=== PATIENT | female | born 1965 | race Caucasian/White ===

== ENCOUNTER 2016-06-26 08:13 | Emergency (ER) | payer OTHER ==
[~2016-06-26 08:13] MED LIST: ALBU17IN2 INH; ALBU83IN INH; ARNU1INH3 IN; DIPH12.527 PO; FENO160T10 PO; FLUT11IN INH; NITR0.4S; OMEP40CA2 PO; PRED20TA PO; PRIL20CA; PRIL40CA; XANA0.5T; ZOLO100T PO; [UNRECOGNIZED DRUG - REMARK]
--- NOTE | 2016-06-26 09:17 | REP ---
LEFT ELBOW SERIES, 06/26/2016: INDICATION: Trauma. COMPARISON: None. FINDINGS: There is mild soft tissue prominence overlying the medial distal humeral epicondyle. There is no acute fracture or dislocation. There is no suprapatellar effusion. IMPRESSION: Mild soft tissue prominence overlying the medial distal humeral epicondyle. No fracture or joint effusion. MTDD
--- NOTE | 2016-06-26 09:23 | EDDOCDS ---
Nurse's Notes [facility] Name: Claudia Holcomb Age: 50 yrs Sex: Female : 1965 Arrival Date: 06/26/2016 Time: 08:13 Bed I2 / M2 Private MD: Carson Lawler Diagnosis: Contusion of left elbow Presentation: 06/26 08:23 Presenting complaint: Patient states: Fell on Friday injuring left elbow. Adult Sepsis mlb1 Screening: The patient does not have new or worsening altered mentation. Patient's respiratory rate is less than 22. Systolic blood pressure is greater than 100. Patient has a qSOFA score of 0- Negative Sepsis Screen. Suicide/Homicide risk assessment- the patient denies having any suicidal and/or homicidal ideations and does not present with any other emotional, behavioral or mental health complaints. Status: Patient is not a dispatcher service or dependent. Transition of care: patient was not received from another setting of care. 08:23 Acuity: ALON Level 4 mlb1 08:23 Method Of Arrival: Walkin/Carried/Asstd mlb1 Triage Assessment: 08:25 General: Appears in no apparent distress, Behavior is appropriate for age, cooperative. mlb1 Pain: Location: left elbow Pain currently is 8.5 out of 10 on a pain scale. HIV screening NA for this visit Offered previously. Injury Description: Bruise sustained to left elbow is green. 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 omeprazole 40 mg Oral cpDR 1 cap once daily - PMHx: Anxiety; Degenerative disc disease; GERD; High Cholesterol; Mood Disorder; - PSHx: ; Exploratory lap; reverse tubal; - Social history: Smoking status: Patient uses tobacco products, light tobacco smoker. No barriers to communication noted, The patient speaks fluent Guamanian, Speaks appropriately for age. - Family history: Not pertinent. - : The pt / caregiver states he / she is not on anticoagulants. Home medication list is obtained from the patient. - Exposure Risk Screening:: None identified. Screenin:40 Screening information is obtained from the patient. Fall risk: No risks identified. jmk Assistance ADL's: requires no assistance with activities of daily living. Abuse/DV Screen: The patient / caregiver reports he/she is: not in a situation that causes fear, pain or injury. Nutritional screening: No deficits noted. Advance Directives: Currently, there is no health care proxy. There is no active DNR order. There is no living will. There is no Power of Curing Press Maintainer. Advance directive information has not previously been placed in an [facility] medical record. home support is adequate. Assessment: 08:37 General: Appears in no apparent distress, casually sitting on stretcher. Indicates jmk discomfort to left elbow. Pulse is intact. ROM adequate but painful with extension. faint ecchymosis noted to posterior elbow over 2" area. skin integrity intact.. Musculoskeletal: Circulation, motion, and sensation intact Capillary refill < 3 seconds. Vital Signs: 08:25 BP 139 / 85; Pulse 72; Resp 16; Temp 97.6(TE); Pulse Ox 96% on R/A; Weight 86.64 kg mlb1 (R); Height 5 ft. 6 in. (167.64 cm) (R); Pain 8/10; 08:25 Body Mass Index 30.83 (86.64 kg, 167.64 cm) ml Vitals: 08:25 Log In Time: June 26, 2016 at 08:09. mlb1 ED Course: 08:14 Patient visited by Samuel Ambriz. mm15 08:14 Patient moved to Waiting mm15 08:15 Carson Lawler is Private Physician. mm15 08:23 Patient visited by Vance Valdez, BRITTANY. mlb1 08:24 Triage Initiated mlb1 08:26 Patient visited by Vance Valdez, BRITTANY. mlb1 08:26 Patient moved to / mlb1 08:40 The patient / caregiver is instructed regarding the plan of care and ED course. jmk 08:41 Patient visited by Jd Chavira RN. jmk 08:42 Sammy Ashton [facility]-C [facility] cc10 08:42 Navi Moore MD is Attending Physician. cc10 08:48 Patient visited by Sammy Ashton PA-C. cc10 08:48 Patient visited by Sammy Ashton PA-C. cc10 09:14 Carson Lawler is Referral Physician. cc10 09:22 No IV's were initiated during this patient's visit. No procedures done that require jmk assistance. Order Results: There are currently no results for this order. Outcome: 09:15 Discharge ordered by Provider. cc10 09:21 Discharge Assessment: Patient awake, alert and oriented x 3. No cognitive and/or jmk functional deficits noted. Patient verbalized understanding of disposition instructions. patient administered narcotics - no. The following High Risk Discharge criteria are identified: None. Discharged to home ambulatory. Condition: good. Discharge instructions given to patient, Instructed on discharge instructions, follow up and referral plans. medication usage, Demonstrated understanding of instructions, medications, Pt was receptive of discharge instructions/ teaching. No special radiology studies were completed. Property :Personal belongings accompany Pt. 09:22 Patient left the ED. jmk Signatures: Jd ChaviraRN Vance Guerrero RN RN mlSamuel Braxton mm15 Sammy Ashton, PA-C PA-C cc10 URVASHI
--- NOTE | 2016-06-26 09:23 | EDDOCDS ---
Physician Documentation [facility] Name: Claudia Holcomb Age: 50 yrs Sex: Female : 1965 Arrival Date: 06/26/2016 Time: 08:13 Bed I2 / M2 Private MD: Carson Lawler Disposition: 06/26/16 09:15 Discharged to Home/Self Care. Impression: Contusion of left elbow. - Condition is Stable. - Discharge Instructions: Elbow Contusion. - Prescriptions for Naprosyn 500 mg Oral Tablet - take 1 tablet by ORAL route 2 times per day take with food; 30 tablet. - Medication Reconciliation, Work Release Form - 2 day form. - Follow up: Emergency Department; When: As needed. Follow up: Carson Lawler; When: Call to arrange an appointment; Reason: Wound/Symptom Recheck, Recheck today's complaints, Worsening of conditions, Continuance of care. - Problem is an ongoing problem. - Symptoms are unchanged. Historical: - Allergies: Latex (Rash, Wheezing); - Home Meds: 1. omeprazole 40 mg Oral cpDR 1 cap once daily - PMHx: Anxiety; Degenerative disc disease; GERD; High Cholesterol; Mood Disorder; - PSHx: ; Exploratory lap; reverse tubal; - Social history: Smoking status: Patient uses tobacco products, light tobacco smoker. No barriers to communication noted, The patient speaks fluent Panamanian, Speaks appropriately for age. - Family history: Not pertinent. - : The pt / caregiver states he / she is not on anticoagulants. Home medication list is obtained from the patient. - Exposure Risk Screening:: None identified. 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 6 in. (167.64 cm) (R); Pain 8/10; 08:25 Body Mass Index 30.83 (86.64 kg, 167.64 cm) mlb1 MDM: 08:41 Elbow, Complete Ordered. EDMS Signatures: Dispatcher [employer] EDMS Jd Chavira RN RN jmk Barney, Michael B, RN RN mlb1 Daisha, Sammy, PA-C PA-C cc10 MTDD
--- NOTE | 2016-06-28 10:23 | EDDOCDS ---
Physician Documentation [facility] Name: Claudia Holcomb Age: 50 yrs Sex: Female : 1965 Arrival Date: 06/26/2016 Time: 08:13 Bed I2 / M2 Private MD: Carson Lawler Disposition: 06/26/16 09:15 Discharged to Home/Self Care. Impression: Contusion of left elbow. - Condition is Stable. - Discharge Instructions: Elbow Contusion. - Prescriptions for Naprosyn 500 mg Oral Tablet - take 1 tablet by ORAL route 2 times per day take with food; 30 tablet. - Medication Reconciliation, Work Release Form - 2 day form. - Follow up: Emergency Department; When: As needed. Follow up: Carson Lawler; When: Call to arrange an appointment; Reason: Wound/Symptom Recheck, Recheck today's complaints, Worsening of conditions, Continuance of care. - Problem is an ongoing problem. - Symptoms are unchanged. Historical: - Allergies: Latex (Rash, Wheezing); - Home Meds: 1. omeprazole 40 mg Oral cpDR 1 cap once daily - PMHx: Anxiety; Degenerative disc disease; GERD; High Cholesterol; Mood Disorder; - PSHx: ; Exploratory lap; reverse tubal; - Social history: Smoking status: Patient uses tobacco products, light tobacco smoker. No barriers to communication noted, The patient speaks fluent Brazilian, Speaks appropriately for age. - Family history: Not pertinent. - : The pt / caregiver states he / she is not on anticoagulants. Home medication list is obtained from the patient. - Exposure Risk Screening:: None identified. 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 6 in. (167.64 cm) (R); Pain 8/10; 08:25 Body Mass Index 30.83 (86.64 kg, 167.64 cm) mlb1 MDM: 08:41 Elbow, Complete Ordered. EDMS 09:27 [facility] Agreement was scanned into [employer] and attached to record. jls1 14:04 T-Sheet-- Draft Copy was scanned into [employer] and attached to record. gb Signatures: Dispatcher [employer] EDMS Jd Chavira,RN RN Jessica Moralez, Abdi Reg Vance Zimmerman, RN RN mlb1 Sammy Ashton, PALeanderC PALeanderC cc10 Hilda Cruz jls1 The chart was reviewed and I authenticate all verbal orders and agree with the evaluation and treatment provided.Attachments: : [facility] Payment Agreement jls1 14:04 T-Sheet-- Draft Copy gb Chart Complete MTDD
--- NOTE | 2016-06-28 10:23 | EDDOCDS ---
Physician Documentation [facility] Name: Claudia Holcomb Age: 50 yrs Sex: Female : 1965 Arrival Date: 06/26/2016 Time: 08:13 Bed I2 / M2 Private MD: Carson Lawler Disposition: 06/26/16 09:15 Discharged to Home/Self Care. Impression: Contusion of left elbow. - Condition is Stable. - Discharge Instructions: Elbow Contusion. - Prescriptions for Naprosyn 500 mg Oral Tablet - take 1 tablet by ORAL route 2 times per day take with food; 30 tablet. - Medication Reconciliation, Work Release Form - 2 day form. - Follow up: Emergency Department; When: As needed. Follow up: Carson Lawler; When: Call to arrange an appointment; Reason: Wound/Symptom Recheck, Recheck today's complaints, Worsening of conditions, Continuance of care. - Problem is an ongoing problem. - Symptoms are unchanged. Historical: - Allergies: Latex (Rash, Wheezing); - Home Meds: 1. omeprazole 40 mg Oral cpDR 1 cap once daily - PMHx: Anxiety; Degenerative disc disease; GERD; High Cholesterol; Mood Disorder; - PSHx: ; Exploratory lap; reverse tubal; - Social history: Smoking status: Patient uses tobacco products, light tobacco smoker. No barriers to communication noted, The patient speaks fluent Cymro, Speaks appropriately for age. - Family history: Not pertinent. - : The pt / caregiver states he / she is not on anticoagulants. Home medication list is obtained from the patient. - Exposure Risk Screening:: None identified. 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 6 in. (167.64 cm) (R); Pain 8/10; 08:25 Body Mass Index 30.83 (86.64 kg, 167.64 cm) mlb1 MDM: 08:41 Elbow, Complete Ordered. EDMS 09:27 [facility] [place] was scanned into [employer] and attached to record. jls1 14:04 T-Sheet-- Draft Copy was scanned into [employer] and attached to record. gb Signatures: Dispatcher [employer] EDMS Jd Chavira,RN RN Jessica Moralez, Abdi Reg Vance Zimmerman, RN RN mlb1 Sammy Ashton, PALeanderC PALeanderC cc10 Hilda Cruz jls1 The chart was reviewed and I authenticate all verbal orders and agree with the evaluation and treatment provided.Attachments: : [facility] Payment Agreement [email or web address] 14:04 T-Sheet-- Draft Copy gb Chart Complete MTDD
--- NOTE | 2016-06-28 10:23 | EDDOCDS ---
Nurse's Notes [facility] Name: Claudia Holcomb Age: 50 yrs Sex: Female : 1965 Arrival Date: 06/26/2016 Time: 08:13 Bed I2 / M2 Private MD: Carson Lawler Diagnosis: Contusion of left elbow Presentation: 06/26 08:23 Presenting complaint: Patient states: Fell on Friday injuring left elbow. Adult Sepsis mlb1 Screening: The patient does not have new or worsening altered mentation. Patient's respiratory rate is less than 22. Systolic blood pressure is greater than 100. Patient has a qSOFA score of 0- Negative Sepsis Screen. Suicide/Homicide risk assessment- the patient denies having any suicidal and/or homicidal ideations and does not present with any other emotional, behavioral or mental health complaints. Status: Patient is not a digital service engineer or dependent. Transition of care: patient was not received from another setting of care. 08:23 Acuity: ALON Level 4 mlb1 08:23 Method Of Arrival: Walkin/Carried/Asstd mlb1 Triage Assessment: 08:25 General: Appears in no apparent distress, Behavior is appropriate for age, cooperative. mlb1 Pain: Location: left elbow Pain currently is 8.5 out of 10 on a pain scale. HIV screening NA for this visit Offered previously. Injury Description: Bruise sustained to left elbow is green. 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 omeprazole 40 mg Oral cpDR 1 cap once daily - PMHx: Anxiety; Degenerative disc disease; GERD; High Cholesterol; Mood Disorder; - PSHx: ; Exploratory lap; reverse tubal; - Social history: Smoking status: Patient uses tobacco products, light tobacco smoker. No barriers to communication noted, The patient speaks fluent Lao, Speaks appropriately for age. - Family history: Not pertinent. - : The pt / caregiver states he / she is not on anticoagulants. Home medication list is obtained from the patient. - Exposure Risk Screening:: None identified. Screenin:40 Screening information is obtained from the patient. Fall risk: No risks identified. jmk Assistance ADL's: requires no assistance with activities of daily living. Abuse/DV Screen: The patient / caregiver reports he/she is: not in a situation that causes fear, pain or injury. Nutritional screening: No deficits noted. Advance Directives: Currently, there is no health care proxy. There is no active DNR order. There is no living will. There is no Power of Inspecting Engineer. Advance directive information has not previously been placed in an [facility] medical record. home support is adequate. Assessment: 08:37 General: Appears in no apparent distress, casually sitting on stretcher. Indicates jmk discomfort to left elbow. Pulse is intact. ROM adequate but painful with extension. faint ecchymosis noted to posterior elbow over 2" area. skin integrity intact.. Musculoskeletal: Circulation, motion, and sensation intact Capillary refill < 3 seconds. Vital Signs: 08:25 BP 139 / 85; Pulse 72; Resp 16; Temp 97.6(TE); Pulse Ox 96% on R/A; Weight 86.64 kg mlb1 (R); Height 5 ft. 6 in. (167.64 cm) (R); Pain 8/10; 08:25 Body Mass Index 30.83 (86.64 kg, 167.64 cm) ml Vitals: 08:25 Log In Time: June 26, 2016 at 08:09. mlb1 ED Course: 08:14 Patient visited by Samuel Ambriz. mm15 08:14 Patient moved to Waiting mm15 08:15 Carson Lawler is Private Physician. mm15 08:23 Patient visited by Vance Valdez, BRITTANY. mlb1 08:24 Triage Initiated mlb1 08:26 Patient visited by Vance Valdez, BRITTANY. mlb1 08:26 Patient moved to / mlb1 08:40 The patient / caregiver is instructed regarding the plan of care and ED course. jmk 08:41 Patient visited by Jd Chavira RN. jmk 08:42 Sammy Ashton PA-C [facility] cc10 08:42 Navi Moore MD is Attending Physician. cc10 08:48 Patient visited by Sammy Ashton PA-C. cc10 08:48 Patient visited by Sammy Ashton PA-C. cc10 09:14 Carson Lawler is Referral Physician. cc10 09:22 No IV's were initiated during this patient's visit. No procedures done that require jmk assistance. 09:27 [facility] Payment Agreement was scanned into [employer] and attached to record. jl 09:56 Elbow, Complete Returned. EDMS 14:04 T-Sheet-- Draft Copy was scanned into [employer] and attached to record. Order Results: Radiology Order: Elbow, Complete Test: Elbow, Complete REASON FOR EXAMINATION: Trauma; LEFT ELBOW SERIES, 06/26/2016:; ; INDICATION: Trauma.; ; COMPARISON: None.; ; FINDINGS: There is mild soft tissue prominence overlying the medial distal; humeral epicondyle. There is no acute fracture or dislocation. There is no; suprapatellar effusion.; ; IMPRESSION:; Mild soft tissue prominence overlying the medial distal humeral epicondyle. No; fracture or joint effusion.; ; ; MTDD Outcome: 09:15 Discharge ordered by Provider. cc10 09:21 Discharge Assessment: Patient awake, alert and oriented x 3. No cognitive and/or k functional deficits noted. Patient verbalized understanding of disposition instructions. patient administered narcotics - no. The following High Risk Discharge criteria are identified: None. Discharged to home ambulatory. Condition: good. Discharge instructions given to patient, Instructed on discharge instructions, follow up and referral plans. medication usage, Demonstrated understanding of instructions, medications, Pt was receptive of discharge instructions/ teaching. No special radiology studies were completed. Property :Personal belongings accompany Pt. 09:22 Patient left the ED. chencho Signatures: Dispatcher [employer] EDMS Jd Chavira,RN RN Jessica Moralez, Abdi Reg Vance Zimmerman RN RN mlb1 Samuel Ambriz mm15 Sammy Ashton, PA-C PA-C cc10 Hilda Cruz jls1 Chart Complete MTDD
== END 2016-06-26 09:22 | disposition home or self-care (01) ==
LOC: M ED 08:13
DX: S50.02XA Contusion of left elbow, initial encounter (principal); W19.XXXA Unspecified fall, initial encounter; Y92.410 Unspecified street and highway as the place of occurrence of the external cause; Y93.89 Activity, other specified; Y99.8 Other external cause status; K21.9 Gastro-esophageal reflux disease without esophagitis; Z79.899 Other long term (current) drug therapy; F17.210 Nicotine dependence, cigarettes, uncomplicated; Z91.040 Latex allergy status

== ENCOUNTER → 2016-08-22 | Outpatient (CLI) | payer OTHER ==
[~2016-08-22] MED LIST changes: +HYDR-4274 PO; +TRAZ10TA PO
--- NOTE | 2016-08-23 03:38 | REP ---
Clinical: Wheezing. Findings: Bilateral lung butts are well-aerated, symmetric, and clear. No consolidation, nodule or mass lesion. No pleural effusion/reaction or pneumothorax. Mediastinum including heart/pericardium and thoracic aorta are relatively normal. Mild atherosclerotic changes noted. No pericardial effusion. No obvious axillary, hilar, or mediastinal adenopathy. The tracheobronchial tree is patent and normal in appearance. The surrounding musculoskeletal structures are unremarkable. Impression: Normal chest CT. Signed by Cm Negrete MD 08/23/2016 03:30 A
== END ==
LOC: M RAD 08:51
PROVIDERS: ATTEND Internal Medicine Pulmonary Disease
DX: R06.2 Wheezing (principal)

== ENCOUNTER 2016-12-21 20:57 | Emergency (ER) | payer OTHER, SELFPAY ==
[~2016-12-21] VITALS: Ht 167.6 cm; Wt 92.2 kg
[~2016-12-21 20:57] MED LIST changes: -HYDR-4274 PO; +HYDR50TA70 PO
[2016-12-21] MEDS ORDERED: MULT1TAB10 PO (21:12)
[2016-12-21] MEDS ORDERED: NAPROXEN 250 MG TAB PO ONE (23:15)
[2016-12-21 23:24] VITALS: BP 132/68
--- NOTE | 2016-12-22 07:34 | REP ---
Right ankle four views : There is no fracture or dislocation. There is soft tissue edema laterally. The mortise is symmetric. There are no calcifications or foreign bodies. There is a tiny calcaneal Achilles spur. Impression: Soft tissue edema laterally. No fracture. Signed by Shawn Santana MD 12/22/2016 07:25 A
[2017-03-14] MEDS ORDERED: FISH1000 PO (16:21)
[2017-04-13] MEDS ORDERED: PROAAER10 INH (11:42)
[2017-04-13] MEDS ORDERED: MELO15TA4 PO (11:42)
[2017-04-13] MEDS ORDERED: ALBU83IN INH (11:42)
[2017-04-13] MEDS ORDERED: OMEP40CA2 PO (11:42)
[2017-04-13] MEDS ORDERED: BREO1INH3 INH (11:42)
[2017-04-16] MEDS ORDERED: SUCR1TA PO (10:37)
[2017-04-16] MEDS ORDERED: CETI10TA PO (10:37)
[2017-04-16] MEDS ORDERED: PRED10TA2 PO (10:37)
== END 2016-12-21 23:24 | disposition home or self-care (01) ==
LOC: M ED 20:57
DX: S93.401A Sprain of unspecified ligament of right ankle, initial encounter (principal); X58.XXXA Exposure to other specified factors, initial encounter; Y92.9 Unspecified place or not applicable; Y93.01 Activity, walking, marching and hiking; Y99.9 Unspecified external cause status; F41.9 Anxiety disorder, unspecified; G43.909 Migraine, unspecified, not intractable, without status migrainosus; K57.30 Diverticulosis of large intestine without perforation or abscess without bleeding; F17.200 Nicotine dependence, unspecified, uncomplicated; Z79.899 Other long term (current) drug therapy; Z91.040 Latex allergy status

== ENCOUNTER 2017-01-16 11:44 | Emergency (ER) | payer OTHER ==
[~2017-01-16] VITALS: Ht 167.6 cm; Wt 92.2 kg
[~2017-01-16 11:44] MED LIST changes: +MULT1TAB10 PO
[2017-01-16 12:18] LABS: BASO % 0.9 % (0.0-1.0); EOS # 0.1 K/mm3 (0.0-0.50); EOS % 2.2 % (0.0-3.0); LARGE UNSTAINED CELL # 0.1 K/mm3 (0.0-0.4); LARGE UNSTAINED CELL % 1.8 % (0.0-4.0); LYMPH # 1.5 K/mm3 (1.5-4.5); LYMPH % 38.1 % (24.0-44.0); MEAN CORPUSCULAR HEMOGLOBIN 31.2 pg (27.0-33.0); MEAN CORPUSCULAR VOLUME 89.3 fl (80.0-96.0); MONO # 0.2 K/mm3 (0.0-0.8); MONO % 4.5 % (0.0-5.0); NEUTROPHILS # 2.1 K/mm3 (1.8-7.7); NEUTROPHILS % 52.4 % (36.0-66.0); PLATELET COUNT, AUTOMATED 185 k/mm3 (150-450); RED CELL DISTRIBUTION WIDTH 13.3 % (11.5-14.5)
[2017-01-16 12:23] LABS: INR 0.87
--- NOTE | 2017-01-16 12:44 | REP ---
Portable chest: Comparison is 03/25/2016. Single AP view, the patient sitting, 12:26 p.m.: The lung butts are clear. The cardiac size is normal. The francisco, mediastinum, and bony thorax are unremarkable. Impression: Negative portable chest. There is no interval change. Signed by Shawn Santana MD 01/16/2017 12:36 P
[2017-01-16 12:50] LABS: ALBUMIN 4.2 GM/DL (3.2-5.2); ALBUMIN/GLOBULIN RATIO 1.45 (1.00-1.93); ALKALINE PHOSPHATASE 65 U/L (45-117); ALT/SGPT 34 U/L (12-78); ANION GAP 9 MEQ/L (8-16); AST/SGOT 24 U/L (15-37); BILIRUBIN,DIRECT 0.2 MG/DL (0.0-0.2); BILIRUBIN,TOTAL 0.8 MG/DL (0.2-1.0); BLOOD UREA NITROGEN 18 MG/DL (7-18); CALCIUM LEVEL 8.8 MG/DL (8.5-10.1); CARBON DIOXIDE LEVEL 22 MEQ/L (21-32); CHLORIDE LEVEL 111 MEQ/L (98-107); CREATININE FOR GFR 0.88 MG/DL (0.55-1.02); GLOMERULAR FILTRATION RATE > 60.0 (>51); GLUCOSE, FASTING 106 MG/DL (70-105); POTASSIUM SERUM 4.4 MEQ/L (3.5-5.1); SODIUM LEVEL 142 MEQ/L (136-145); TOTAL PROTEIN 7.1 GM/DL (6.4-8.2)
[2017-01-16] MEDS ORDERED: PANTOPRAZOLE 40MG TAB (PROTONIX) PO ONE (13:15)
[2017-01-16] MEDS ORDERED: ASPIRIN 81 MG CHEW TABLET PO ONE (13:15)
[2017-01-16] MEDS ORDERED: PROT1TAB2 PO (14:57)
[2017-01-16 15:12] VITALS: BP 135/81
--- NOTE | 2017-01-16 20:58 | ECGEPIP ---
Stationary ECG Study [facility] - ED Test Date: 2017-01-16 Pat Name: TODD GARCIA Department: Room: - Gender: F Medical Appointment Scheduler: ct : 1965 Requested By: Raven Awad Order Number: [id number] Reading MD: Raven Awad Measurements Intervals [place] Rate: 67 P: 41 NH: 202 QRS: 40 QRSD: 90 T: 47 QT: 386 QTc: 408 Interpretive Statements SINUS RHYTHM NONSPECIFIC ST & T-WAVE ABNORMALITY SIMILAR 07/08/15 Electronically Signed On 01-16-2017 20:58:34 EDT by Raven Awad
--- NOTE | 2017-01-16 20:59 | ECGEPIP ---
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
[2017-03-14] MEDS ORDERED: FISH1000 PO (16:21)
[2017-04-13] MEDS ORDERED: BREO1INH3 INH (11:42)
[2017-04-13] MEDS ORDERED: MELO15TA4 PO (11:42)
[2017-04-13] MEDS ORDERED: ALBU83IN INH (11:42)
[2017-04-13] MEDS ORDERED: OMEP40CA2 PO (11:42)
[2017-04-13] MEDS ORDERED: PROAAER10 INH (11:42)
[2017-04-16] MEDS ORDERED: PRED10TA2 PO (10:37)
[2017-04-16] MEDS ORDERED: CETI10TA PO (10:37)
[2017-04-16] MEDS ORDERED: SUCR1TA PO (10:37)
== END 2017-01-16 15:13 | disposition home or self-care (01) ==
LOC: M ED 11:44
DX: R07.89 Other chest pain (principal); R00.1 Bradycardia, unspecified; R94.31 Abnormal electrocardiogram [ECG] [EKG]; K21.9 Gastro-esophageal reflux disease without esophagitis; K27.9 Peptic ulcer, site unspecified, unspecified as acute or chronic, without hemorrhage or perforation; Z82.49 Family history of ischemic heart disease and other diseases of the circulatory system; Z79.899 Other long term (current) drug therapy; Z91.040 Latex allergy status

== ENCOUNTER → 2017-03-12 | Outpatient (CLI) | payer OTHER ==
[~2017-03-12] MED LIST changes: +BREO1INH3 INH; +CETI10TA PO; +E-Z-GAS II EFFERVESCENT PACKET (SODIUM BICARB./CITRIC ACID/SIMETHICONE) As Ordered ONE; +E-Z-HD 98% w/w 340GM SUSP BTL As Ordered ONE; +E-Z-PAQUE 96% w/w SUSP 176GM BTL As Ordered ONE; +FISH1000 PO; +MELO15TA4 PO; +PRED10TA2 PO; +PROAAER10 INH; +PROT1TAB2 PO; +SUCR1TA PO
--- NOTE | 2017-03-13 17:26 | REP ---
Esophagram The procedure was performed under the direct supervision of Dr. Reich. The images were reviewed with Dr. Reich. A single view PA chest x-ray is submitted as a youth nutritional monitor film. The superior mediastinal structures are midline. The heart size is within normal limits. The lungs are clear. Liquid barium and gas producing granules were given in the erect position as well as liquid barium in the prone oblique positions in order to perform a double contrast esophagram examination. The oral and pharyngeal stages of deglutition are unremarkable. Esophageal transport is prompt and efficient and there is no esophagitis, stricture, or mucosal ring. There is a hiatal hernia present . There is mild gastroesophageal reflux demonstrated to below the level of the jose. Impression: There is a hiatal hernia present. There is mild gastroesophageal reflux demonstrated to below the level of the jose. 45 seconds of fluoro time was utilized for this procedure. Reviewed by MUNIRA Aguilar 03/12/2017 04:28 PSigned by Ebenezer Reich MD 03/13/2017 05:18 P
== END ==
LOC: M RAD 08:54
PROVIDERS: ATTEND Physician Assistant Medical
DX: K44.9 Diaphragmatic hernia without obstruction or gangrene (principal); K21.9 Gastro-esophageal reflux disease without esophagitis; R13.10 Dysphagia, unspecified; R10.13 Epigastric pain

== ENCOUNTER 2017-03-18 10:23 | Outpatient (CLI) | payer OTHER ==
[~2017-03-18] VITALS: Ht 167.6 cm; Wt 91.2 kg
[~2017-03-18 10:23] MED LIST changes: -BREO1INH3 INH; -CETI10TA PO; -E-Z-GAS II EFFERVESCENT PACKET (SODIUM BICARB./CITRIC ACID/SIMETHICONE) As Ordered ONE; -E-Z-HD 98% w/w 340GM SUSP BTL As Ordered ONE; -E-Z-PAQUE 96% w/w SUSP 176GM BTL As Ordered ONE; -MELO15TA4 PO; -PRED10TA2 PO; -PROAAER10 INH; -SUCR1TA PO
[2017-03-18] MEDS ORDERED: LIDOCAINE 2% INJ 100 MG/5 ML SDV (FOR ANES.) As Ordered ONE ×2 (11:21→11:55)
[2017-03-18] MEDS ORDERED: PROPOFOL 200 MG/20 ML VIAL As Ordered ONE ×3 (11:21→12:20)
[2017-03-18] MEDS ORDERED: NS 1,000 ML IV ONE (11:45)
--- NOTE | 2017-03-18 12:11 | ROOR ---
Patient Name: Claudia Holcomb Procedure Date: 03/18/2017 11:55 AM Date of : 1965 Age: 51 Room: [facility] ED Gender: Female Note Status: Finalized Procedure: Upper GI endoscopy Indications: Dysphagia, Suspected esophageal reflux. Xyphodynia/costochondritis Providers: Ricky SAVAGE MD Referring MD: VJ CUADRA MD Requesting Provider: Medicines: Monitored Anesthesia Care Complications: No immediate complications. Procedure: Pre-Anesthesia Assessment: - The heart rate, respiratory rate, oxygen saturations, blood pressure, adequacy of pulmonary ventilation, and response to care were monitored throughout the procedure. The Endoscope was introduced through the mouth, and advanced to the second part of duodenum. The upper GI endoscopy was accomplished without difficulty. The patient tolerated the procedure well. Findings: The esophagus was normal. The stomach was normal. The examined duodenum was normal. No endoscopic abnormality was evident in the esophagus to explain the patient's complaint of dysphagia. It was decided, however, to proceed with dilation of the entire esophagus. The scope was withdrawn. Dilation was performed with a Stuart dilator with no resistance at 54 Fr. The dilation site was examined and showed no change. Biopsies were taken with a cold forceps in the entire esophagus for histology. Two biopsies were obtained with cold forceps for evaluation of eosinophilic esophagitis in the entire esophagus. Impression: - Normal esophagus. Two biopsies were obtained in the entire esophagus. - Normal stomach. - Normal examined duodenum. - No endoscopic esophageal abnormality to explain patient's dysphagia. Esophagus dilated. Dilated. Recommendation: - Use Protonix (pantoprazole) 20 mg PO BID. - Observe patient's clinical course. - Telephone endoscopist for pathology results in 2 weeks. Ricky Savage MD Ricky SAVAGE MD 03/18/2017 12:10:59 PM This report has been signed electronically. Number of Addenda: 0 Note Initiated On: 03/18/2017 11:55 AM Estimated Blood Loss: Estimated blood loss: none.
--- NOTE | 2017-03-18 12:27 | ROOR ---
Patient Name: Claudia Holcomb Procedure Date: 03/18/2017 11:55 AM Date of : 1965 Age: 51 Room: [facility] Gender: Female Note Status: Finalized Procedure: Colonoscopy Indications: Screening for colorectal malignant neoplasm Providers: Ricky CASSIDY MD Referring MD: VJ CUADRA MD Requesting Provider: Medicines: Monitored Anesthesia Care Complications: No immediate complications. Procedure: Pre-Anesthesia Assessment: - The heart rate, respiratory rate, oxygen saturations, blood pressure, adequacy of pulmonary ventilation, and response to care were monitored throughout the procedure. The Colonoscope was introduced through the anus and advanced to the terminal ileum, with identification of the appendiceal orifice and IC valve. The colonoscopy was performed without difficulty. The patient tolerated the procedure well. The quality of the bowel preparation was good. Findings: The perianal and digital rectal examinations were normal. The terminal ileum appeared normal. A diminutive polyp was found in the sigmoid colon. The polyp was sessile. The polyp was removed with a cold snare. Resection and retrieval were complete. Mild diverticulosis and small internal hemorrhoids. The exam was otherwise without abnormality on direct and retroflexion views. Impression: - One diminutive polyp in the sigmoid colon, removed with a cold snare. Resected and retrieved. - Mild diverticulosis and small internal hemorrhoids. - The colon is otherwise normal on direct and retroflexion views. - The terminal ileum is normal Recommendation: - Repeat colonoscopy in 5 years for surveillance. Ricky Cassidy MD Ricky CASSIDY MD 03/18/2017 12:26:27 PM This report has been signed electronically. Number of Addenda: 0 Note Initiated On: 03/18/2017 11:55 AM Estimated Blood Loss: Estimated blood loss: none.
[2017-03-18 12:45] VITALS: BP 117/63
[2017-04-13] MEDS ORDERED: MELO15TA4 PO (11:42)
[2017-04-13] MEDS ORDERED: BREO1INH3 INH (11:42)
[2017-04-13] MEDS ORDERED: OMEP40CA2 PO (11:42)
[2017-04-13] MEDS ORDERED: PROAAER10 INH (11:42)
[2017-04-13] MEDS ORDERED: ALBU83IN INH (11:42)
[2017-04-16] MEDS ORDERED: PRED10TA2 PO (10:37)
[2017-04-16] MEDS ORDERED: SUCR1TA PO (10:37)
[2017-04-16] MEDS ORDERED: CETI10TA PO (10:37)
== END 2017-03-18 12:55 | disposition home or self-care (01) ==
LOC: M OPP 10:23
PROVIDERS: ATTEND Internal Medicine Gastroenterology
DX: Z12.11 Encounter for screening for malignant neoplasm of colon (principal); D12.5 Benign neoplasm of sigmoid colon; K57.30 Diverticulosis of large intestine without perforation or abscess without bleeding; K64.8 Other hemorrhoids; R13.10 Dysphagia, unspecified; R10.13 Epigastric pain; R12 Heartburn; M94.0 Chondrocostal junction syndrome [Tietze]; E78.5 Hyperlipidemia, unspecified; K21.9 Gastro-esophageal reflux disease without esophagitis; M19.90 Unspecified osteoarthritis, unspecified site; M51.9 Unspecified thoracic, thoracolumbar and lumbosacral intervertebral disc disorder; F32.9 Major depressive disorder, single episode, unspecified; F41.9 Anxiety disorder, unspecified; R51 Headache; Z78.0 Asymptomatic menopausal state; J45.909 Unspecified asthma, uncomplicated; L70.9 Acne, unspecified; F17.210 Nicotine dependence, cigarettes, uncomplicated; Z91.040 Latex allergy status; Z79.899 Other long term (current) drug therapy

== ENCOUNTER 2017-06-23 05:54 | Day surgery (SDC) | payer OTHER ==
[2017-06-23] MEDS: LR 1,000 ML IV (06:55)
[2017-06-23] MEDS: ALBUTEROL SULFATE 2.5 MG/0.5 ML INH NEB SOLN INH (07:13)
[2017-06-23] MEDS: METHYLENE BLUE 0.5% (5MG/ML) 10 ML AMP (PROVAYBLUE)(Q9968 PER 1MG) As Ordered (07:59)
[2017-06-23] MEDS: LIDOCAINE W/EPINEPHRINE 1% 20ML VIAL As Ordered (07:59)
[2017-06-23] MEDS: EPINEPHrine 1MG/ML INJ 30ML MD-VIAL As Ordered (07:59)
[2017-06-23] MEDS ORDERED: MIDAZOLAM INJ 2 MG/2 ML VIAL (J2250) As Ordered (08:14)
[2017-06-23] MEDS ORDERED: fentaNYL 250 MCG/5 ML INJECTION (J3010) As Ordered (08:14)
[2017-06-23] MEDS ORDERED: PROPOFOL 200 MG/20 ML VIAL As Ordered (08:14)
[2017-06-23] MEDS ORDERED: ONDANSETRON 4MG/2ML VIAL (J2405) As Ordered (08:14)
[2017-06-23] MEDS ORDERED: dexameTHASONE 4 MG/ML 1ML VIAL (J1100) As Ordered (08:14)
[2017-06-23] MEDS ORDERED: HYDROmorphone HCL 2 MG/ML 1ML VIAL (J1170) As Ordered (08:14)
[2017-06-23] MEDS ORDERED: ROCURONIUM BROMIDE 50 MG/5 ML VIAL As Ordered (08:14)
[2017-06-23] MEDS ORDERED: LR 1,000 ML IV ×2 (09:00→10:00)
[2017-06-23] MEDS ORDERED: HYDROmorphone HCL 1 MG/ML SYRINGE (J1170) IV (10:00)
[2017-06-23] MEDS ORDERED: PERCOCET 5MG/325MG TAB PO (10:00)
[2017-06-23] MEDS ORDERED: fentaNYL 100 MCG/2 ML INJECTION (J3010) IV (10:00)
[2017-06-23] MEDS: ONDANSETRON 4MG/2ML VIAL (J2405) IV (10:25)
[2017-06-23] MEDS ORDERED: METOCLOPRAMIDE INJ 10MG/2ML VIAL (J2765) As Ordered (10:30)
[2017-06-23] MEDS: METOCLOPRAMIDE INJ 10MG/2ML VIAL (J2765) IV (10:40)
[2017-06-23] MEDS: ACETAMINOPH W/CODEINE #3 TAB UD PO (14:19)
== END 2017-06-23 16:50 | disposition home or self-care (01) ==
LOC: M SDC 05:54
DX: J34.2 Deviated nasal septum (principal); J31.0 Chronic rhinitis; J32.9 Chronic sinusitis, unspecified; E78.1 Pure hyperglyceridemia; E78.5 Hyperlipidemia, unspecified; M19.049 Primary osteoarthritis, unspecified hand; K21.9 Gastro-esophageal reflux disease without esophagitis; G47.00 Insomnia, unspecified; F32.9 Major depressive disorder, single episode, unspecified; R00.2 Palpitations; F41.9 Anxiety disorder, unspecified; J45.909 Unspecified asthma, uncomplicated; K57.90 Diverticulosis of intestine, part unspecified, without perforation or abscess without bleeding; G43.909 Migraine, unspecified, not intractable, without status migrainosus; Z86.14 Personal history of Methicillin resistant Staphylococcus aureus infection; M51.9 Unspecified thoracic, thoracolumbar and lumbosacral intervertebral disc disorder; M50.30 Other cervical disc degeneration, unspecified cervical region; F17.210 Nicotine dependence, cigarettes, uncomplicated; Z79.899 Other long term (current) drug therapy; Z79.51 Long term (current) use of inhaled steroids; Z88.8 Allergy status to other drugs, medicaments and biological substances; Z91.040 Latex allergy status
CPT/HCPCS: 30520

== ENCOUNTER 2017-07-01 12:15 | Emergency (ER) | payer OTHER ==
[2017-07-01 14:03] LABS: BASO # 0.1 10^3/uL (0.0-0.2); EOS # 0.1 10^3/uL (0.0-0.50); EOS % 1.9 % (0.0-3.0); HEMATOCRIT 40.9 % (36.0-47.0); HEMOGLOBIN 13.7 g/dl (12.0-16.0); IMMATURE GRANULOCYTE % 0.6 % (0-0); LYMPH # 2.3 10^3/uL (1.5-4.5); LYMPH % 34.3 % (24.0-44.0); MEAN CORPUSCULAR HEMOGLOBIN 30.1 pg (27.0-33.0); MEAN CORPUSCULAR HGB CONC 33.5 g/dl (32.0-36.5); MEAN CORPUSCULAR VOLUME 89.9 fl (80.0-96.0); MONO # 0.4 10^3/uL (0.0-0.8); MONO % 5.9 % (0.0-5.0); NEUTROPHILS # 3.8 10^3/uL (1.8-7.7); NEUTROPHILS % 56.3 % (36.0-66.0); PLATELET COUNT, AUTOMATED 239 10^3/uL (150-450); RED BLOOD COUNT 4.55 10^6/uL (4.00-5.40); RED CELL DISTRIBUTION WIDTH 13.6 % (11.5-14.5); WHITE BLOOD COUNT 6.8 10^3/uL (4.0-10.0)
[2017-07-01] MEDS: NS 1,000 ML IV (14:15)
[2017-07-01 14:27] LABS: ALBUMIN 3.8 GM/DL (3.2-5.2); ALBUMIN/GLOBULIN RATIO 0.93 (1.00-1.93); ALKALINE PHOSPHATASE 69 U/L (45-117); ALT/SGPT 28 U/L (12-78); ANION GAP 6 MEQ/L (8-16); AST/SGOT 19 U/L (7-37); BILIRUBIN,TOTAL 0.5 MG/DL (0.2-1.0); BLOOD UREA NITROGEN 16 MG/DL (7-18); CARBON DIOXIDE LEVEL 25 MEQ/L (21-32); CHLORIDE LEVEL 108 MEQ/L (98-107); CREATININE FOR GFR 0.82 MG/DL (0.55-1.02); GLOMERULAR FILTRATION RATE > 60.0 (>51); GLUCOSE, FASTING 98 MG/DL (70-100); POTASSIUM SERUM 4.4 MEQ/L (3.5-5.1); SODIUM LEVEL 139 MEQ/L (136-145); TOTAL PROTEIN 7.9 GM/DL (6.4-8.2)
[2017-07-01 14:28] LABS: LACTIC ACID SEPSIS PROTOCOL 0.9 MMOL/L (0.4-2.0)
[2017-07-01] MEDS: KETOROLAC 30 MG/ML VIAL (J1885) IV (14:48)
== END 2017-07-01 15:12 | disposition home or self-care (01) ==
LOC: M ED 12:15
DX: R51 Headache (principal); J01.90 Acute sinusitis, unspecified
CPT/HCPCS: J1885

== ENCOUNTER 2017-08-01 11:17 | Emergency (ER) | payer OTHER ==
[2017-08-01] MEDS: CYCLOBENZAPRINE 10 MG TAB PO (13:33)
[2017-08-01] MEDS: IBUPROFEN 600 MG TAB PO (13:33)
[2017-08-01] MEDS: NORCO, ANEXSIA 5/325MG TABLET (HYDROcodone/ACETAMINOPHEN) PO (13:33)
== END 2017-08-01 14:54 | disposition home or self-care (01) ==
LOC: M ED 11:17
DX: M51.26 Other intervertebral disc displacement, lumbar region (principal); M51.27 Other intervertebral disc displacement, lumbosacral region; M51.36 Other intervertebral disc degeneration, lumbar region; M47.892 Other spondylosis, cervical region; M47.893 Other spondylosis, cervicothoracic region; I10 Essential (primary) hypertension; K57.90 Diverticulosis of intestine, part unspecified, without perforation or abscess without bleeding; K21.9 Gastro-esophageal reflux disease without esophagitis; Z79.899 Other long term (current) drug therapy; Z91.040 Latex allergy status
CPT/HCPCS: 72131

== ENCOUNTER → 2017-09-29 | Outpatient (CLI) | payer OTHER | LOC: M WHC 09:13 | DX: Z12.31 Encounter for screening mammogram for malignant neoplasm of breast (principal); Z78.0 Asymptomatic menopausal state; Z80.3 Family history of malignant neoplasm of breast | CPT/HCPCS: 77067 ==

== ENCOUNTER → 2017-12-01 | Outpatient (CLI) | payer OTHER | LOC: M RAD 07:27 | DX: R10.10 Upper abdominal pain, unspecified (principal); R11.2 Nausea with vomiting, unspecified; R12 Heartburn | CPT/HCPCS: 76705 ==

== ENCOUNTER 2017-12-12 22:33 | Emergency (ER) | payer OTHER ==
[2017-12-13] MEDS: ONDANSETRON 4MG/2ML VIAL (J2405) IV (00:58)
[2017-12-13] MEDS: MORPHINE 4 MG/ML 1ML VIAL/SYRINGE (J2270) IV (00:58)
[2017-12-13] MEDS: NS 1,000 ML IV (00:58)
[2017-12-13 01:03] LABS: BASO % 0.6 % (0.0-1.0); EOS # 0.1 10^3/uL (0.0-0.50); EOS % 1.5 % (0.0-3.0); HEMATOCRIT 41.6 % (36.0-47.0); HEMOGLOBIN 14.2 g/dl (12.0-15.5); IMMATURE GRANULOCYTE % 0.4 % (0-3.0); LYMPH # 1.1 10^3/uL (1.5-4.5); LYMPH % 20.6 % (24.0-44.0); MEAN CORPUSCULAR HEMOGLOBIN 30.4 pg (27.0-33.0); MEAN CORPUSCULAR HGB CONC 34.1 g/dl (32.0-36.5); MEAN CORPUSCULAR VOLUME 89.1 fl (80.0-96.0); MONO # 0.2 10^3/uL (0.0-0.8); NEUTROPHILS # 3.8 10^3/uL (1.8-7.7); NEUTROPHILS % 72.9 % (36.0-66.0); PLATELET COUNT, AUTOMATED 166 10^3/uL (150-450); RED BLOOD COUNT 4.67 10^6/uL (4.00-5.40); RED CELL DISTRIBUTION WIDTH 14.2 % (11.5-14.5); WHITE BLOOD COUNT 5.2 10^3/uL (4.0-10.0)
[2017-12-13 01:29] LABS: LACTIC ACID SEPSIS PROTOCOL 0.6 MMOL/L (0.4-2.0)
[2017-12-13 01:39] LABS: ALBUMIN 3.8 GM/DL (3.2-5.2); ALBUMIN/GLOBULIN RATIO 1.15 (1.00-1.93); ALKALINE PHOSPHATASE 67 U/L (45-117); ALT/SGPT 25 U/L (12-78); ANION GAP 7 MEQ/L (8-16); AST/SGOT 14 U/L (7-37); BILIRUBIN,DIRECT 0.2 MG/DL (0.0-0.2); BLOOD UREA NITROGEN 16 MG/DL (7-18); CALCIUM LEVEL 8.5 MG/DL (8.5-10.1); CARBON DIOXIDE LEVEL 25 MEQ/L (21-32); CHLORIDE LEVEL 110 MEQ/L (98-107); CREATININE FOR GFR 0.86 MG/DL (0.55-1.30); GLOMERULAR FILTRATION RATE > 60.0 (>51); GLUCOSE, FASTING 104 MG/DL (70-100); LIPASE 151 U/L (73-393); POTASSIUM SERUM 3.8 MEQ/L (3.5-5.1); SODIUM LEVEL 142 MEQ/L (136-145); TOTAL PROTEIN 7.1 GM/DL (6.4-8.2)
[2017-12-13] MEDS: HYOSCYAMINE SULFATE 0.125 MG SUBL TABLET PO (02:17)
[2017-12-13] MEDS: KETOROLAC 30 MG/ML VIAL (J1885) IV (02:17)
== END 2017-12-13 04:15 | disposition home or self-care (01) ==
LOC: M ED 12-13 04:15
DX: R10.9 Unspecified abdominal pain (principal); K80.70 Calculus of gallbladder and bile duct without cholecystitis without obstruction; K76.0 Fatty (change of) liver, not elsewhere classified; Z72.0 Tobacco use; Z79.899 Other long term (current) drug therapy; Z91.040 Latex allergy status
CPT/HCPCS: J2270

== ENCOUNTER → 2017-12-16 | Outpatient (CLI) | payer OTHER | LOC: M RAD 07:20 | DX: R10.11 Right upper quadrant pain (principal); R11.0 Nausea; R93.3 Abnormal findings on diagnostic imaging of other parts of digestive tract | CPT/HCPCS: J2805 ==

== ENCOUNTER 2018-01-04 10:49 | Emergency (ER) | payer OTHER | END 2018-01-04 11:21 | disposition home or self-care (01) | LOC: M ED 10:49 | DX: J02.0 Streptococcal pharyngitis (principal); J44.9 Chronic obstructive pulmonary disease, unspecified; J45.909 Unspecified asthma, uncomplicated; K21.9 Gastro-esophageal reflux disease without esophagitis; F33.9 Major depressive disorder, recurrent, unspecified; F41.9 Anxiety disorder, unspecified; F17.200 Nicotine dependence, unspecified, uncomplicated; Z87.19 Personal history of other diseases of the digestive system; Z91.040 Latex allergy status; Z79.899 Other long term (current) drug therapy | CPT/HCPCS: 87880 ==

== ENCOUNTER 2018-08-08 13:39 | Inpatient (IN) | payer OTHER ==
[~2018-08-08] VITALS: Ht 167.6 cm; Wt 84.1 kg
[~2018-08-08 13:39] MED LIST changes: +AMOX875T PO; +AUGM875T28 PO; +BREO1INH3 INH; +CETI10TA; +CETI10TA PO; +FLUTISP; +IBUP-1022 PO; +IRON65TA PO; +MAGICMW SSP; +MELO15TA28 PO; +PANT40TA3; +PERC5TAB12 PO; +PRED10TA2 PO; +PROAAER10 INH; +RANI150T; +ROBA500T PO; +SUCR1TA PO; +SUCR1TAB56; +TYLE325T5 PO
[2018-08-08] MEDS ORDERED: methylPREDNISolone INJ 125 MG/2 ML VIAL (J2930) IV ONE (14:15)
[2018-08-08] MEDS ORDERED: ALBUTEROL SULFATE 2.5 MG/0.5 ML INH NEB SOLN INH ONE (14:15)
[2018-08-08] MEDS ORDERED: IPRATROPIUM 0.5MG/ALBUTEROL 2.5MG INH SOL UD 3ML (DUONEB)(J7620) NEB ONE (14:15)
[2018-08-08 14:38] LABS: BASO % 0.4 % (0.0-1.0); EOS # 0.1 10^3/uL (0.0-0.50); EOS % 1.3 % (0.0-3.0); HEMATOCRIT 39.4 % (36.0-47.0); HEMOGLOBIN 13.3 g/dl (12.0-15.5); LYMPH # 1.6 10^3/uL (1.5-4.5); LYMPH % 17.3 % (24.0-44.0); MEAN CORPUSCULAR HGB CONC 33.8 g/dl (32.0-36.5); MEAN CORPUSCULAR VOLUME 88.9 fl (80.0-96.0); MONO # 0.4 10^3/uL (0.0-0.8); MONO % 3.9 % (0.0-5.0); NEUTROPHILS # 6.9 10^3/uL (1.8-7.7); NEUTROPHILS % 76.4 % (36.0-66.0); PLATELET COUNT, AUTOMATED 163 10^3/uL (150-450); RED BLOOD COUNT 4.43 10^6/uL (4.00-5.40); WHITE BLOOD COUNT 9.1 10^3/uL (4.0-10.0)
--- NOTE | 2018-08-08 14:44 | REP ---
Clinical: Acute chest pain . Comparison: 11/14/2017 . Findings: The mediastinum and cardiac silhouette are stable and within normal limits for portable technique. The lung butts are clear without acute consolidation, effusion, or pneumothorax. Skeletal structures are intact. Impression: No acute cardiopulmonary process appreciated. Electronically Signed by Cm Negrete MD 08/08/2018 02:35 P
[2018-08-08 14:49] LABS: INFLUENZA A AMPLIFICATION NEGATIVE (NEGATIVE); INFLUENZA B AMPLIFICATION NEGATIVE (NEGATIVE)
[2018-08-08 14:52] LABS: ALBUMIN 3.8 GM/DL (3.2-5.2); ALT/SGPT 44 U/L (12-78); BILIRUBIN,DIRECT 0.3 MG/DL (0.0-0.2); BILIRUBIN,TOTAL 1.2 MG/DL (0.2-1.0); BLOOD UREA NITROGEN 13 MG/DL (7-18); CALCIUM LEVEL 8.4 MG/DL (8.5-10.1); CARBON DIOXIDE LEVEL 22 MEQ/L (21-32); CHLORIDE LEVEL 107 MEQ/L (98-107); CPK CREATINE PHOSPHOKINASE 163 U/L (26-192); CREATININE FOR GFR 0.83 MG/DL (0.55-1.30); FREE T4 1.31 NG/DL (0.76-1.46); GLOMERULAR FILTRATION RATE > 60.0 (>51); GLUCOSE, FASTING 96 MG/DL (70-100); LIPASE 114 U/L (73-393); MB/CK RELATIVE INDEX 1.17 (< OR =4); NT-PRO BNP 14 PG/ML (<125); POTASSIUM SERUM 4.1 MEQ/L (3.5-5.1); SODIUM LEVEL 139 MEQ/L (136-145); TOTAL PROTEIN 7.2 GM/DL (6.4-8.2); TROPONIN I < 0.02 NG/ML (< 0.10)
[2018-08-08] MEDS ORDERED: ISOVUE-370 76% 100ML VIAL (Q9967) As Ordered ONE (15:17)
--- NOTE | 2018-08-08 15:52 | REP ---
Clinical: Epigastric and abdominal pain. Technique: Axial contrast enhanced images from the lung bases to the pubic symphysis with coronal and sagittal re-formations using 100 ml Isovue 370 intravenous contrast material. Findings: Lung bases demonstrate patchy infiltrates primarily noted in the lingula and right middle lobe and to a lesser extent the bilateral lower lobes consistent with multifocal pneumonia. No effusion. Fatty infiltration to the liver suggested without focal hepatic lesion. Spleen, pancreas, gallbladder, bilateral adrenal glands and kidneys are normal. The enteric system is without obstruction or acute inflammatory process. Normal terminal ileum and appendix are identified in the right lower quadrant. Few scattered sigmoid diverticula noted without acute diverticulitis. Pelvis demonstrates normal bladder and age-appropriate uterus/adnexa. No ascites. No free air. No adenopathy. Abdominal aorta without aneurysm or dissection. Musculoskeletal structures intact. Impression: Findings suggest multifocal pneumonia. No acute abdominopelvic pathology appreciated. Electronically Signed by Cm Negrete MD 08/08/2018 03:44 P
--- NOTE | 2018-08-08 15:52 | REP ---
Clinical: Acute chest pain with epigastric pain and shortness of breath. Technique: Axial contrast enhanced images from the thoracic inlet to the upper abdomen using 100 ml Isovue 370 intravenous contrast material with coronal and sagittal re-formations. Findings: Satisfactory enhancement of the pulmonary vasculature is achieved and no filling defects are identified to suggest pulmonary embolus. Patchy subtle infiltrates involving the bilateral lungs consistent with early multifocal pneumonia. Associated mild reactive adenopathy noted. Tracheobronchial tree is patent. No effusion. No pneumothorax. Thoracic aorta is normal caliber without aneurysm or dissection. Heart and pericardium are normal. Impression: No evidence for pulmonary embolus. Multifocal pneumonia. Electronically Signed by Cm Negrete MD 08/08/2018 03:44 P
[2018-08-08] MEDS ORDERED: AZITHROMYCIN INJ 500 MG, VIAL MATE ADAPTER 1 EACH in D5W 250 ML IV ONE (16:00)
[2018-08-08] MEDS ORDERED: cefTRIAXone SOD 1 GM in D5W MINI-BAG PLUS 50 ML IV ONE (16:00)
[2018-08-08 16:18] LABS: ABG BASE EXCESS -3.3 (-2.0-2.0); ABG HCO3 18.5 MEQ/L (22.0-26.0); ABG O2 SATURATION 97.8 % (95.0-99.0); ABG PARTIAL PRESSURE CO2 25.4 mmHg (35.0-45.0); ABG PARTIAL PRESSURE O2 99.2 mmHg (75.0-100.0); ABG STANDARD HCO3 21.7 MEQ/L (22.0-26.0); ABG TOTAL CO2 19.3 MEQ/L (22.0-29.0)
[2018-08-08] MEDS ORDERED: OMEP40CA2 PO (16:36)
[2018-08-08] MEDS ORDERED: COLD1MIS PO (16:37)
[2018-08-08] MEDS ORDERED: FISH1000 PO (16:37)
[2018-08-08] MEDS ORDERED: IPRATROPIUM 0.5MG/ALBUTEROL 2.5MG INH SOL UD 3ML (DUONEB)(J7620) NEB PRN (16:45)
--- NOTE | 2018-08-08 16:53 | HPE ---
DATE OF ADMISSION: 08/08/2018 A 53-year-old female with a past medical history of asthma, gastroesophageal reflux disease (GERD), history of chronic active tobacco abuse, hyperlipidemia presents to the emergency room with increasing shortness of breath with cough with productive brown sputum for approximately 3 days. Did have subjective feeling of fever, aches, and chills. Took her temperature, and it was as high as 102, so she came to the emergency room (ER) for evaluation. In the ER she was given 3 nebulizer treatments and intravenous (IV) Solu-Medrol loading dose of [address] was done of her abdomen and pelvis, which showed multilobar pneumonia. Patient was started on IV Rocephin and Zithromax; however, she still remained hypoxic at 90% on room air, so she will be admitted for further management. PAST MEDICAL HISTORY: 1. Asthma. 2. GERD. 3. History of depression. 4. Chronic active tobacco abuse. 5. Hyperlipidemia. ALLERGIES: No known drug allergies. FAMILY HISTORY: Noncontributory. SOCIAL HISTORY: Patient quit smoking a week ago, but before then she would smoke approximately a pack in 1 week. Denies alcohol or illicit drugs. HOME MEDICATIONS: - albuterol as needed - omeprazole 40 mg orally twice daily REVIEW OF SYSTEMS: Negative for [id number] systems except what is mentioned in the history of present illness (HPI). VITAL SIGNS: Blood pressure is 122/60, heart rate 78 and regular, respiratory rate is 18, temperature 99.2, oxygen saturation is 99% on 2 liters nasal cannula. HEAD: Atraumatic, normocephalic. NECK: Supple. No jugular venous distention (JVD). LUNGS: Have late expiratory wheezes bilaterally. HEART: S1, S2 audible. No murmurs appreciated. ABDOMEN: Soft. Positive bowel sounds. No pedal edema. SKIN: Intact. NEUROLOGIC: Patient awake, alert, oriented times three. LABORATORY DATA: Arterial pH is 7.48, pCO2 of 25.4, and pO2 is 99.2. Chemistry: Shows sodium 139, potassium 4.1, chloride 107, CO2 of 22, BUN 13, creatinine 0.83, glucose 96. Troponin less than 0.02. WBC 9.1, hemoglobin 13.3, hematocrit 39.4, platelets 163,000. Flu swab was negative. IMPRESSION: 1. Community-acquired pneumonia. 2. Asthma exacerbation. PLAN: Patient will be admitted to the medical/surgical floor. Will continue the patient on IV Rocephin and Zithromax. Give her DuoNeb every 4 as needed and will continue her IV Solu-Medrol at 40 every 8. Will get sputum cultures and continue her preadmission medication and continue her care in the medical/surgical floor.
[2018-08-08 18:02] LABS: BLOOD UREA NITROGEN 12 MG/DL (7-18); CALCIUM LEVEL 8.5 MG/DL (8.5-10.1); CARBON DIOXIDE LEVEL 23 MEQ/L (21-32); CHLORIDE LEVEL 106 MEQ/L (98-107); CREATININE FOR GFR 0.92 MG/DL (0.55-1.30); GLOMERULAR FILTRATION RATE > 60.0 (>51); GLUCOSE, FASTING 133 MG/DL (70-100); POTASSIUM SERUM 3.4 MEQ/L (3.5-5.1); SODIUM LEVEL 138 MEQ/L (136-145)
[2018-08-08 18:13] LABS: CPK CREATINE PHOSPHOKINASE 135 U/L (26-192); MB/CK RELATIVE INDEX 1.26 (< OR =4); TROPONIN I < 0.02 NG/ML (< 0.10)
--- NOTE | 2018-08-08 19:23 | ECGEPIP ---
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
[2018-08-08] MEDS: OMEPRAZOLE 20 MG CAP PO SCH (20:57)
[2018-08-08 21:00] VITALS: BP 136/67
[2018-08-09] VITALS: BP 111/56
[2018-08-09] MEDS: ACETAMINOPHEN TAB 650MG DOSE (2X325MG) PO PRN ×2 (00:27→15:51)
[2018-08-09 07:21] LABS: BASO % 0.2 % (0.0-1.0); HEMATOCRIT 37.2 % (36.0-47.0); HEMOGLOBIN 12.9 g/dl (12.0-15.5); LYMPH # 1.2 10^3/uL (1.5-4.5); LYMPH % 11.3 % (24.0-44.0); MEAN CORPUSCULAR HEMOGLOBIN 30.8 pg (27.0-33.0); MEAN CORPUSCULAR HGB CONC 34.7 g/dl (32.0-36.5); MEAN CORPUSCULAR VOLUME 88.8 fl (80.0-96.0); MONO # 0.5 10^3/uL (0.0-0.8); MONO % 4.5 % (0.0-5.0); NEUTROPHILS # 9.2 10^3/uL (1.8-7.7); NEUTROPHILS % 83.3 % (36.0-66.0); PLATELET COUNT, AUTOMATED 180 10^3/uL (150-450); RED BLOOD COUNT 4.19 10^6/uL (4.00-5.40)
[2018-08-09 08:00] VITALS: BP 148/75
[2018-08-09] MEDS: cefTRIAXone SOD 1 GM in D5W MINI-BAG PLUS 50 ML IV SCH (08:42)
[2018-08-09] MEDS: OMEPRAZOLE 20 MG CAP PO SCH ×2 (08:42→20:32)
[2018-08-09] MEDS ORDERED: FLUBLOK(EGG FREE)(QUAD)INFLUENZA VACC 0.5ML SYRINGE (90682)18YRS&OLDER IM ONE (09:00)
[2018-08-09] MEDS: AZITHROMYCIN INJ 500 MG, VIAL MATE ADAPTER 1 EACH in D5W 250 ML IV SCH (09:47)
[2018-08-09] MEDS: ALBUTEROL SULFATE 2.5 MG/0.5 ML INH NEB SOLN NEB SCH ×2 (10:05→15:03)
[2018-08-09] MEDS: BUDESONIDE 0.5 MG/2 ML INHALATION SUSPENSION INH SCH ×2 (10:05→19:22)
[2018-08-09] MEDS ORDERED: MAALOX 30 ML SUSP *UDC PO PRN (12:15)
--- NOTE | 2018-08-09 13:38 | IPNPDOC ---
Text Note Date of Service The patient was seen on 08/09/18. NOTE SUBJECTIVE: Feeling a little better this morning. SOB is better, no fever over night. Continues to have cough. Still with some epigastric abdominal pain today , no nausea or vomiting. PHYSICAL EXAM: VITAL SIGNS: As below HEAD: Atraumatic, normocephalic. NECK: Supple. No jugular venous distention (JVD). LUNGS: Have late expiratory wheezes bilaterally. HEART: S1, S2 audible. No murmurs appreciated. ABDOMEN: Soft. Positive bowel sounds. No pedal edema. SKIN: Intact. NEUROLOGIC: Patient awake, alert, oriented times three Labs and Radiology: reviewed. ASSESSMENT and PLAN: A 53-year-old female with a past medical history of asthma, gastroesophageal reflux disease (GERD), history of chronic active tobacco abuse, hyperlipidemia presents to the emergency room with increasing shortness of breath with cough with productive brown sputum for approximately 3 days. Did have subjective feeling of fever, aches, and chills. Took her temperature, and it was as high as 102, so she came to the emergency room (ER) for evaluation. In the ER she was given 3 nebulizer treatments and intravenous (IV) Solu-Medrol loading dose of 125 IV push. As she also complained of epigastric pain a CT was done of her abdomen and pelvis, which showed multilobar pneumonia. CT angio of chest was negative for PE but showed multifocal pneumonia Pateint was admitted for multifocal pneumonia and Asthma exacerbation Multifocal CAP continue ceftriaxone and azithromycin Asthma exacerbation due to pneumonia continue albuterol, budesonide nebs Gastroesophageal reflux disease (GERD). continue omeprazole History of laryngeal spasm. no issues at present Depression. not on any meds. Tobacco abuse. counselled about quitting. . offered gum or patch Hyperlipidemia continue fish oil VS,Fishbone, I+O VS, Fishbone, I+O Laboratory Tests 08/08/18 14:12 Red Blood Count 4.43, Mean Corpuscular Volume 88.9, Mean Corpuscular Hemoglobin 30.0, Mean Corpuscular Hemoglobin Concent 33.8, Red Cell Distribution Width 13.7, Neutrophils (%) (Auto) 76.4 H, Lymphocytes (%) (Auto) 17.3 L, Monocytes (%) (Auto) 3.9, Eosinophils (%) (Auto) 1.3, Basophils (%) (Auto) 0.4, Neutrophils # (Auto) 6.9, Lymphocytes # (Auto) 1.6, Monocytes # (Auto) 0.4, E osinophils # (Auto) 0.1, Basophils # (Auto) 0.0 08/08/18 17:23 Calcium Level 8.5 Vital Signs Date Time Temp Pulse Resp B/P (MAP) Pulse Ox O2 Delivery O2 Flow Rate FiO2 08/09/18 04:00 2.0 08/09/18 00:00 97.6 74 20 111/56 (74) 97 08/08/18 19:45 Nasal Cannula I&O- Last 24 Hours up to 6 AM 08/09/18 06:00 Intake Total 660 ml Output Total 450 ml Balance 210 ml SAIMA RODRIGUEZ MD Aug 09, 2018 07:11
[2018-08-09 16:00] VITALS: BP 128/60
[2018-08-09] MEDS: LEVALBUTEROL 1.25 MG/0.5 ML CONCENTRATE NEB INH SCH ×2 (19:22→22:49)
[2018-08-09 20:00] VITALS: BP 110/59
--- NOTE | 2018-08-09 20:02 | ECGEPIP ---
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
[2018-08-10 04:00] VITALS: BP 116/58
[2018-08-10] MEDS: ACETAMINOPHEN TAB 650MG DOSE (2X325MG) PO PRN ×2 (05:08→08:59)
[2018-08-10 07:27] LABS: BASO % 0.4 % (0.0-1.0); EOS # 0.1 10^3/uL (0.0-0.50); EOS % 0.8 % (0.0-3.0); HEMATOCRIT 33.9 % (36.0-47.0); HEMOGLOBIN 11.6 g/dl (12.0-15.5); LYMPH # 2.7 10^3/uL (1.5-4.5); LYMPH % 37.7 % (24.0-44.0); MEAN CORPUSCULAR HEMOGLOBIN 30.9 pg (27.0-33.0); MEAN CORPUSCULAR HGB CONC 34.2 g/dl (32.0-36.5); MEAN CORPUSCULAR VOLUME 90.4 fl (80.0-96.0); MONO # 0.3 10^3/uL (0.0-0.8); MONO % 4.1 % (0.0-5.0); PLATELET COUNT, AUTOMATED 169 10^3/uL (150-450); RED BLOOD COUNT 3.75 10^6/uL (4.00-5.40); WHITE BLOOD COUNT 7.1 10^3/uL (4.0-10.0)
[2018-08-10] MEDS ORDERED: predniSONE 20 MG TAB PO ONE (07:30)
[2018-08-10] MEDS: LEVALBUTEROL 1.25 MG/0.5 ML CONCENTRATE NEB INH SCH ×2 (07:36→13:33)
[2018-08-10] MEDS: BUDESONIDE 0.5 MG/2 ML INHALATION SUSPENSION INH SCH (07:36)
[2018-08-10 07:56] LABS: BLOOD UREA NITROGEN 18 MG/DL (7-18); CALCIUM LEVEL 8.3 MG/DL (8.5-10.1); CARBON DIOXIDE LEVEL 27 MEQ/L (21-32); CHLORIDE LEVEL 111 MEQ/L (98-107); CREATININE FOR GFR 0.91 MG/DL (0.55-1.30); GLOMERULAR FILTRATION RATE > 60.0 (>51); GLUCOSE, FASTING 96 MG/DL (70-100); POTASSIUM SERUM 3.7 MEQ/L (3.5-5.1); SODIUM LEVEL 145 MEQ/L (136-145)
[2018-08-10 08:00] VITALS: BP 134/75
[2018-08-10] MEDS: cefTRIAXone SOD 1 GM in D5W MINI-BAG PLUS 50 ML IV SCH (09:00)
[2018-08-10] MEDS: OMEPRAZOLE 20 MG CAP PO SCH (09:00)
[2018-08-10] MEDS: AZITHROMYCIN INJ 500 MG, VIAL MATE ADAPTER 1 EACH in D5W 250 ML IV SCH (10:07)
--- NOTE | 2018-08-10 10:49 | IPNPDOC ---
Text Note Date of Service The patient was seen on 08/10/18. NOTE SUBJECTIVE: Patient reports subjective improvement since yesterday. She has remained afebrile overnight. She says she is no longer short of breath, and has been res ponsive to nebulizer treatments. She is continuing to cough but states that it is now somewhat productive. Sputum sample obtained and sent to the lab. Potential discharge later today was discussed with the patient, who was agreeable with the plan. PHYSICAL EXAM: VITAL SIGNS: As below GENERAL: Patient is alert, oriented, NAD, able to answer questions HEAD: Atraumatic, normocephalic. NECK: Supple. No jugular venous distention (JVD). LUNGS: Clear to auscultation bilaterally HEART: S1, S2 audible. No murmurs appreciated. ABDOMEN: Soft. Positive bowel sounds. SKIN: Intact. Labs and Radiology: Reviewed. ASSESSMENT and PLAN: A 53-year-old female with a past medical history of asthma, gastroesophageal reflux disease (GERD), history of chronic active tobacco abuse, hyperlipidemia presents to the emergency room with increasing shortness of breath with cough with productive brown sputum for approximately 3 days. Did have subjective feeling of fever, aches, and chills. Took her temperature, and it was as high as 102, so she came to the emergency room (ER) for evaluation. In the ER she was given 3 nebulizer treatments and intravenous (IV) Solu-Medrol loading dose of 125 IV push. As she also complained of epigastric pain a CT was done of her abdomen and pelvis, which showed multilobar pneumonia. CT angio of chest was negative for PE but showed multifocal pneumonia. Patient was admitted for multifocal pneumonia and Asthma exacerbation 1. Multifocal CAP: Patient is currently on day 3 of IV ceftriaxone and azithromycin. Will be transitioned to Cefdinir PO for 4 days and PO azithromycin for 2 days prior at the time of discharge. 2. Asthma exacerbation: Likely secondary to pneumonia, patient will be continued on home albuterol nebulizers. She was given a single dose of PO prednisone 40mg. Patient will be given a prescription for PO prednisone 20 mg for 4 days. 3. Gastroesophageal reflux disease (GERD): Patient is continued on home dose of omeprazole. 4. History of laryngeal spasm: No difficulty at this time. 5. Depression: Not on any anti-depressive medication at this time. 6. Tobacco abuse: patient was educated about the increased risk of exacerbation with continued smoking, patient was aware and is not interested in cessation at this time. 7. Hyperlipidemia: continue fish oil Dispo: 1. Anticipate discharge later today. 2. 1 week follow-up with primary care provider Kevin BRICENO, I+O VS, Kevin, I+O Laboratory Tests 08/10/18 07:16 Red Blood Count 3.75 L, Mean Corpuscular Volume 90.4, Mean Corpuscular Hemoglobin 30.9, Mean Corpuscular Hemoglobin Concent 34.2, Red Cell Distribution Width 13.9, Neutrophils (%) (Auto) 56.0, Lymphocytes (%) (Auto) 37.7, Monocytes (%) (Auto) 4.1, Eosinophils (%) (Auto) 0.8, Basophils (%) (Auto) 0.4, Neutrophils # (Auto) 4.0, Lymphocytes # (Auto) 2.7, Monocytes # (Auto) 0.3, Eosinophils # (Auto) 0.1, Basophils # (Auto) 0.0, Calcium Level 8.3 L Vital Signs Date Time Temp Pulse Resp B/P (MAP) Pulse Ox O2 Delivery O2 Flow Rate FiO2 08/10/18 08:00 97.1 61 20 134/75 (94) 96 08/09/18 09:00 2.0 08/08/18 19:45 Nasal Cannula I&O- Last 24 Hours up to 6 AM 08/10/18 06:00 Intake Total 3055 ml Output Total 1100 ml Balance 1955 ml GME ATTESTATION GME ATTESTATION My faculty preceptor for this patient encounter was physically present during the encounter and was fully available. All aspects of the patient interview, examination, medical decision making process, and medical care plan development were reviewed and approved by the faculty preceptor. The faculty preceptor is aware and concurs with the plan as stated in the body of this note and will attest to such by his/her cosignature. HARVINDER LOMBARDI DO Aug 10, 2018 10:49
[2018-08-10] MEDS ORDERED: AZIT-12 PO ×2 (13:11→14:23)
[2018-08-10] MEDS ORDERED: PRED20TA PO (13:11)
[2018-08-10] MEDS ORDERED: CEFD300CAP PO (13:11)
--- NOTE | 2018-08-10 13:12 | DS.PDOC ---
Discharge Summary General Date of Admission Aug 08, 2018 at 16:42 Date of Discharge 08/10/18 Attending Physician: SAIMA RODRIGUEZ MD Discharge Summary PROCEDURES PERFORMED DURING STAY: None ADMITTING DIAGNOSES: 1. Pneumonia 2. Asthma Exacerbation DISCHARGE DIAGNOSES: 1. Pneumonia 2. Asthma Exacerbation COMPLICATIONS/CHIEF COMPLAINT: Asthma With Acute Exacerbation,Pneumonia. HISTORY OF PRESENT ILLNESS: 53 female with past medical history of asthma, gastroesophageal reflux disease, history of chronic active tobacco use, hyperlipidemia, who presented to the emergency room with an increasing amount of shortness of breath. also reported cough with productive brown sputum for the last 3 days. Patient reported a temperature 102 in addition to aches and chills. Patient was given 3 nebulizer treatments in the ED and IV Solu-Medrol loading dose of [address] scan was performed and showed multilobular pneumonia. HOSPITAL COURSE: ED: Patient was given 3 nebulizer treatments in the ED and IV Solu-Medrol loading dose of [address] scan was performed and showed multilobular pneumonia. Patient was started on IV Rocephin and Zithromax. Despite his initial treatments, the patient remained hypoxic at 90% on room air and was admitted for further management of her pneumonia and acute asthma exacerbation. 08/08-07/12: While on the floor, the patient was continued on ceftriaxone and azithromycin IV. She was given albuterol nebulizers every 4 hours when necessary. Blood cultures were drawn demonstrated no growth after 48 hours. 08/10: Single dose of prednisone 40 mg was given. Patient reported subjective improvement in her symptoms and no longer complained of shortness of breath. Vitals have stabilized and the patient remained afebrile. Discharge was discussed with the patient who was agreeable with the plan. IV antibiotics converted to oral medications following her third dose of IV ceftriaxone and azithromycin. DISCHARGE MEDICATIONS: Please see below. ALLERGIES: Please see below. PHYSICAL EXAMINATION ON DISCHARGE: VITAL SIGNS: Please see below. GENERAL: Patient is alert and oriented in no acute distress HEENT: Normocephalic atraumatic, no lymphadenopathy appreciable CARDIOVASCULAR EXAMINATION: S1 and S2 are normal no murmurs are appreciated RESPIRATORY EXAMINATION: Clear to auscultation in all lung butts bilaterally, no wheezing or rhonchi appreciated, good air movement EXTREMITIES: Pulses 2+ and equal bilaterally SKIN: No new lesions are noted NEUROLOGICAL EXAMINATION: Patient is alert and oriented and able to participate in her care PSYCHIATRIC EXAMINATION: Mood and affect are appropriate LABORATORY DATA: Please see below. IMAGING: CT angiogram chest: No evidence for pulmonary embolus, multifocal pneumonia CT abdomen pelvis: No acute abdominopelvic pathology, findings suggestive of multifocal pneumonia ACTIVITY: As tolerated DIET: As tolerated DISPOSITION: Discharge home with primary care follow-up in 1 week DISCHARGE INSTRUCTIONS: 1. Continue previous home medications 2. Take 1 tablet of 20 mg Prednisone daily for 4 days 3. Take 1 tablet of 500 mg Azithromycin daily for 2 days 4. Take 1 capsule of 300 mg Cefdinir by mouth twice daily for 4 days 5. Please return to ED should symptoms worsen of fail to improve DISCHARGE CONDITION: Stable TIME SPENT ON DISCHARGE: Greater than 25 minutes. Vital Signs/I&Os Vital Signs Date Time Temp Pulse Resp B/P (MAP) Pulse Ox O2 Delivery O2 Flow Rate FiO2 08/10/18 08:00 97.1 61 20 134/75 (94) 96 08/09/18 09:00 2.0 08/08/18 19:45 Nasal Cannula I&O- Last 24 Hours up to 6 AM 08/10/18 06:00 Intake Total 3055 ml Output Total 1100 ml Balance 1955 ml Laboratory Data Labs 24H Laboratory Tests 2 08/10/18 07:16: Immature Granulocyte % (Auto) 1.0, White Blood Count 7.1, Red Blood Count 3.75L, Hemoglobin 11.6L, Hematocrit 33.9L, Mean Corpuscular Volume 90.4, Mean Corpuscular Hemoglobin 30.9, Mean Corpuscular Hemoglobin Concent 34.2, Red Cell Distribution Width 13.9, Platelet Count 169, Neutrophils (%) (Auto) 56.0, Lymphocytes (%) (Auto) 37.7, Monocytes (%) (Auto) 4.1, Eosinophils (%) (Auto) 0.8, Basophils (%) (Auto) 0.4, Neutrophils # (Auto) 4.0, Lymphocytes # (Auto) 2.7, Monocytes # (Auto) 0.3, Eosinophils # (Auto) 0.1, Basophils # (Auto) 0.0, Nucleated Red Blood Cells % (auto) 0.0, Anion Gap 7L, Glomerular Filtration Rate > 60.0, Blood Urea Nitrogen 18, Creatinine 0.91, Sodium Level 145#, Potassium Level 3.7, Chloride Level 111H, Carbon Dioxide Level 27, Calcium Level 8.3L CBC/BMP Laboratory Tests 08/10/18 07:16 Red Blood Count 3.75 L, Mean Corpuscular Volume 90.4, Mean Corpuscular Hemoglobin 30.9, Mean Corpuscular Hemoglobin Concent 34.2, Red Cell Distribution Width 13.9, Neutrophils (%) (Auto) 56.0, Lymphocytes (%) (Auto) 37.7, Monocytes (%) (Auto) 4.1, Eosinophils (%) (Auto) 0.8, Basophils (%) (Auto) 0.4, Neutrophils # (Auto) 4.0, Lymphocytes # (Auto) 2.7, Monocytes # (Auto) 0.3, Eosinophils # (Auto) 0.1, Basophils # (Auto) 0.0, Calcium Level 8.3 L Microbiology Microbiology 08/08/18 Blood Culture - Preliminary, Resulted No growth after 24 hours . All specim... 08/08/18 Blood Culture - Preliminary, Resulted No growth after 24 hours . All specim... 08/10/18 Gram Stain - Final, Resulted 08/10/18 Sputum Culture, Resulted Pending Discharge Medications Scheduled Azithromycin (Azithromycin) 250 Mg Tab, 500 MG PO DAILY Cefdinir (Cefdinir) 300 Mg Cap, 300 MG PO BID Fish Oil (Fish Oil) 1,000 Mg Cap, 1,000 MG PO DAILY, (Reported) Omeprazole (Omeprazole) 40 Mg Cap, 40 MG PO BID, (Reported) Prednisone (Prednisone) 20 Mg Tab, 1 TAB PO DAILY Scheduled PRN (Cold & Flu Multi-Symptom (Liquid)) 1 Mis Mis, 30 ML PO for COLD SYMPTOMS, (Reported) Albuterol Sulfate (Proair Hfa) 108 Mcg/Act Aer, 2 PUFF INH Q4HP PRN for DYSPNEA, (Reported) Albuterol Sulfate (Albuterol Sulfate) 2.5 Mg/3 Ml Nebu, 2.5 MG INH Q6H PRN for DYSPNEA, (Reported) Allergies Coded Allergies: Latex (Verified Allergy, Severe, HIVES DIFFICULTY BREATHING, 03/14/17) GME ATTESTATION GME ATTESTATION My faculty preceptor for this patient encounter was physically present during the encounter and was fully available. All aspects of the patient interview, examination, medical decision making process, and medical care plan development were reviewed and approved by the faculty preceptor. The faculty preceptor is aware and concurs with the plan as stated in the body of this note and will attest to such by his/her cosignature. HARVINDER LOMBARDI DO Aug 10, 2018 13:12
== END 2018-08-10 14:35 | disposition home or self-care (01) | DRG 139 ==
LOC: M ED 13:39 → M ED INP 16:42 → M PED 21:05
PROVIDERS: ADMIT Internal Medicine; ATTEND Internal Medicine Nephrology
DX: J18.9 Pneumonia, unspecified organism (principal); J45.901 Unspecified asthma with (acute) exacerbation; K21.9 Gastro-esophageal reflux disease without esophagitis; E78.5 Hyperlipidemia, unspecified; F17.210 Nicotine dependence, cigarettes, uncomplicated; Z79.899 Other long term (current) drug therapy; Z91.040 Latex allergy status; F32.9 Major depressive disorder, single episode, unspecified

== ENCOUNTER → 2018-10-06 | Outpatient (CLI) | payer OTHER ==
[~2018-10-06] MED LIST changes: +AZIT-12 PO; +CEFD300CAP PO; +COLD1MIS PO
--- NOTE | 2018-10-13 11:23 | REP ---
REPEAT DICTATION CT CHEST WITHOUT CONTRAST: HISTORY: Nonspecific abnormal lung field finding. Pneumonia. Comparison CT study August 08, 2018. There is a comparison chest CT study dated August 22, 2016 which is also reviewed. The study is acquired on September 19, 2018 and is presented to me for repeat dictation on October 13, 2018. 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 The recently noted bilateral infiltrates have resolved. There is no evidence of ongoing pneumonia. No pleural or pericardial effusion is seen. No pulmonary nodule or mass lesion is observed. There is no evidence of an the tracheal or bronchial disease. There is some left coronary artery vascular calcification again noted. No hilar or mediastinal mass or adenopathy is observed. Mild diffuse fatty infiltration of the liver noted. No adrenal lesion is seen. There are accessory splenules in the left upper quadrant. The visualized upper abdominal structures are otherwise unremarkable. No bony destructive lesion is appreciated. IMPRESSION: No active cardiopulmonary disease. Electronically Signed by Ebenezer Reich MD 10/13/2018 10:24 P
== END ==
LOC: M RAD 08:07
PROVIDERS: ATTEND Physician Assistant
DX: R91.8 Other nonspecific abnormal finding of lung field (principal); Z87.01 Personal history of pneumonia (recurrent)

== ENCOUNTER 2018-12-09 11:36 | Emergency (ER) | payer OTHER ==
[~2018-12-09] VITALS: Ht 167.6 cm; Wt 86.4 kg
[2018-12-09] MEDS ORDERED: FLUT1INH3 (11:44)
[2018-12-09] MEDS ORDERED: ACETAMINOPHEN TAB 650MG DOSE (2X325MG) PO ONE (12:45)
--- NOTE | 2018-12-09 13:20 | REP ---
Clinical: Trauma . Comparison: 09/21/2015 . Findings: The ventricles, sulci, and cisterns are normal in position and appearance. Childs-white differentiation is maintained. No acute intracranial hemorrhage, mass/mass effect, pathology or trauma/injury. No evidence for acute infarction. No extra-axial fluid collection. Calvarium is intact. Chronic sinusitis predominantly involving the right maxillary and sphenoid sinuses. Impression: Chronic sinus disease. No evidence for acute intracranial pathology or trauma/injury. Electronically Signed by Cm Negrete MD 12/09/2018 01:11 P
--- NOTE | 2018-12-09 13:21 | REP ---
Clinical: Trauma. Technique: Axial noncontrast images from the skull base to the thoracic inlet with coronal and sagittal re-formations Findings: Alignment is maintained. Vertebral bodies are intact. No acute fracture / compression injury or subluxation. Posterior elements and spinous processes are intact. Spinal canal is patent. Paravertebral soft tissues are normal. Impression: Normal cervical spine CT. No acute pathology or trauma/injury. Electronically Signed by Cm Negrete MD 12/09/2018 01:12 P
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
--- NOTE | 2018-12-09 13:27 | REP ---
CT lumbar spine without contrast History: Back pain There is no disc bulge or herniation at the L1-2 through L3-4 levels. There is hypertrophy of the posterior articulating facets at the the L2-3 and L3-4 levels. The nerves exit the neural foramina without compression. A diffuse disc bulge is present at the L4-5 level. There is minimal compression of the thecal sac. There is hypertrophy of the posterior articulating facets. The L4 nerves exit the neural foramina without compression. A diffuse disc bulge is present at the L5-L1 level. There is minimal compression of the thecal sac. There is hypertrophy of the posterior articulating facets. The L5 nerves exit the neural foramina without compression. The L4-5 and L5-L1 intervertebral discs are decreased in height. Vacuum phenomenon is present at the L5-L1 level. These findings are consistent with disc degeneration. There is no fracture or subluxation. Impression 1. Diffuse disc bulges at the L4-5 and L5-L1 levels with minimal thecal sac compression. 2. There is no fracture or subluxation. Electronically Signed by Fuentes Patterson MD 12/09/2018 01:19 P
[2018-12-09 14:43] VITALS: BP 142/67
== END 2018-12-09 14:45 | disposition home or self-care (01) ==
LOC: EDBD 11:36 → M ED 11:36
DX: S16.1XXA Strain of muscle, fascia and tendon at neck level, initial encounter (principal); V43.52XA Car driver injured in collision with other type car in traffic accident, initial encounter; Y92.410 Unspecified street and highway as the place of occurrence of the external cause; M51.9 Unspecified thoracic, thoracolumbar and lumbosacral intervertebral disc disorder; K21.9 Gastro-esophageal reflux disease without esophagitis; M19.90 Unspecified osteoarthritis, unspecified site; Z91.040 Latex allergy status; Z79.51 Long term (current) use of inhaled steroids

== ENCOUNTER 2018-12-13 14:45 | Emergency (ER) | payer OTHER, SELFPAY ==
[~2018-12-13] VITALS: Ht 167.6 cm; Wt 86.4 kg
[~2018-12-13 14:45] MED LIST changes: +FLUT1INH3
[2018-12-13] MEDS ORDERED: KETOROLAC 60 MG/2 ML VIAL (J1885) IM ONE (15:45)
[2018-12-13] MEDS ORDERED: LIDOCAINE 5% (LIDODERM) PATCH TD ONE (15:45)
--- NOTE | 2018-12-13 16:35 | REP ---
Clinical: Pain and swelling Technique: AP, lateral, bilateral oblique views right and left hands . Findings: The osseous structures and joint spaces are intact and normal. There is no evidence for acute fracture or dislocation. Surrounding soft tissues are unremarkable. No subcutaneous emphysema or radiodense foreign body. Impression: No acute fracture or dislocation. Electronically Signed by Cm Negrete MD 12/13/2018 04:27 P
[2018-12-13 17:00] VITALS: BP 131/86
[2018-12-13] MEDS ORDERED: ACETAMINOPHEN TAB 650MG DOSE (2X325MG) PO ONE (17:45)
[2018-12-13] MEDS ORDERED: **NOTE PATIENT COMMENT** MISC XX SCH (21:00)
== END 2018-12-13 17:56 | disposition home or self-care (01) ==
LOC: M ED 16:14
DX: M51.27 Other intervertebral disc displacement, lumbosacral region (principal); M25.541 Pain in joints of right hand; M25.542 Pain in joints of left hand; M54.5 Low back pain; G43.909 Migraine, unspecified, not intractable, without status migrainosus; Z87.820 Personal history of traumatic brain injury; K57.90 Diverticulosis of intestine, part unspecified, without perforation or abscess without bleeding; Z87.440 Personal history of urinary (tract) infections; J45.909 Unspecified asthma, uncomplicated; K21.9 Gastro-esophageal reflux disease without esophagitis; Z72.0 Tobacco use; Z79.899 Other long term (current) drug therapy; Z91.040 Latex allergy status
CPT/HCPCS: 73130; 96372; 99283; J1885

== ENCOUNTER → 2019-01-14 | Outpatient (CLI) | payer OTHER ==
[~2019-01-14] MED LIST changes: +ATOR1TAB21; +BACT800T5 PO; +BENA25CA4 PO; +BENA2CRE3 TOP; +CYCL10TA; +CYCL5TAB PO; +LIDO1PAD TOP; +MEDR4PAK PO; +METH1TAB40 PO; +OMEP-221; -OMEP40CA2 PO; +OMEP40CA97 PO; +SERT25TA21; +SERT50TA29; -TRAZ10TA PO; +TRAZ1TAB12 PO
--- NOTE | 2019-01-14 10:06 | REP ---
MR CERVICAL SPINE WITHOUT CONTRAST: HISTORY: Cervicalgia. COMPARISON: CT 12/09/2018. A disc bulge is present at the C3-4 level. There is minimal effacement of the thecal sac without spinal cord compression. Facet hypertrophy is present on the left. This produces minimal narrowing of the left C3 neural foramen. The right C3 neural foramen is patent. A disc bulge is present at the C4-5 level. There is minimal effacement of the thecal sac without spinal cord compression. The C4 neural foramina are patent. A small central disc protrusion is present at the C5-6 level. There is minimal effacement of the thecal sac without spinal cord compression. The C5 neural foramina are patent. A small left paracentral disc protrusion are present at the C6-7 level. There is minimal effacement of the thecal sac without spinal cord compression. The C6 neural foramina are patent. A small central disc protrusion is present at the C7-T1 level. There is minimal effacement of the thecal sac without spinal cord compression. Facet hypertrophy of present on the left. This produces mild narrowing of the left C7 neural foramen. The right C7 neural foramen is patent. There is no other disc bulge or herniation. The remaining neural foramina are patent. The spinal cord is normal in signal intensity. Normal signal intensity is present in the cervical vertebral bodies. IMPRESSION:There is cervical spondylosis at the C3-4 through C7-T1 levels without spinal cord compression. Electronically Signed by Fuentes Patterson MD 01/14/2019 10:23 A
--- NOTE | 2019-01-14 10:07 | REP ---
MR LUMBAR SPINE WITHOUT CONTRAST: HISTORY: Back pain. Decreased signal intensity on T2-weighted images is present in the L2-3 through L5-S1 intervertebral discs. The discs are decreased in height. These findings are consistent with disc degeneration. There is no disc bulge or herniation at the L1-2 level. The L1 nerves exit the neural foramina without compression. A diffuse disc bulge is present at the L2-3 level. There is hypertrophy of the ligamenta flava and posterior articulating facets. These findings produce minimal central canal stenosis. The L2 nerves exit the neural foramina without compression. A diffuse disc bulge is present at the L3-4 level. There is minimal compression of the thecal sac. There is hypertrophy of the ligamenta flava and posterior articulating facets. The L3 nerves exit the neural foramina without compression. A diffuse disc bulge is present at the L4-5 level. There is hypertrophy of the ligamenta flava and posterior articulating facets. These findings produce minimal central canal stenosis. The L4 nerves exit the neural foramina without compression. A diffuse disc bulge is present at the L5-S1 level. This abuts the thecal sac and S1 nerves. There is hypertrophy of the posterior articulating facets. There is compression of the right L5 nerve and the neural foramen. The left L5 nerve exits the neural foramen without compression. The conus medullaris is normal in appearance terminating at the level of the L1-2 intervertebral disc. Normal signal intensity is present in the lumbar vertebral bodies. IMPRESSION: 1. Minimal central canal stenosis at the L2-3 and L4-5 levels secondary to disc bulge ligamentous and facet hypertrophy. 2. Diffuse disc bulge at the L3-4 level with minimal thecal sac compression. 3. Diffuse disc bulge at the L5-S1 level. This abuts the thecal sac and S1 nerves. There is compression of the right L5 nerve in the neural foramen. Electronically Signed by Fuentes Patterson MD 01/14/2019 10:24 A
== END ==
LOC: M RAD 07:33
PROVIDERS: ATTEND Orthopaedic Surgery
DX: M47.812 Spondylosis without myelopathy or radiculopathy, cervical region (principal); M47.813 Spondylosis without myelopathy or radiculopathy, cervicothoracic region; M50.21 Other cervical disc displacement, high cervical region; M50.221 Other cervical disc displacement at C4-C5 level; M50.23 Other cervical disc displacement, cervicothoracic region; M54.5 Low back pain

== ENCOUNTER → 2019-01-25 | Outpatient (REF) | payer OTHER ==
[~2019-01-25] MED LIST changes: -ATOR1TAB21; -BACT800T5 PO; -BENA25CA4 PO; -BENA2CRE3 TOP; -MEDR4PAK PO; +OMEP40CA2 PO; -OMEP40CA97 PO; -SERT25TA21; +SERT25TA88; -SERT50TA29; +TRAZ10TA PO; -TRAZ1TAB12 PO
[2019-01-25 18:59] LABS: APPEARANCE, URINE HAZY (CLEAR); BACTERIA, URINE AUTO NEGATIVE (NEGATIVE); BILIRUBIN, URINE AUTO NEGATIVE (NEGATIVE); BLOOD, URINE BLOOD 1+ (NEGATIVE); COLOR, URINE YELLOW (YELLOW); GLUCOSE, URINE (UA) AUTO NEGATIVE (NEGATIVE); KETONE, URINE AUTO TRACE mg/dL (NEGATIVE); LEUKOCYTE ESTERASE, URINE AUTO TRACE (NEGATIVE); MUCUS, URINE MODERATE (NEGATIVE); NITRITE, URINE AUTO NEGATIVE (NEGATIVE); PROTEIN, URINE AUTO 1+ mg/dL (NEGATIVE); RBC, URINE AUTO 1 /HPF (0-3); SPECIFIC GRAVITY URINE AUTO 1.028 (1.002-1.035); SQUAMOUS EPITHELIAL CELL UR AU 7 /HPF (0-6); UROBILINOGEN, URINE AUTO 0.2 mg/dL (0.0-2.0); WBC, URINE AUTO 0 /HPF (0-3)
== END ==
LOC: M SFHCPLAZ 17:02
PROVIDERS: ATTEND Family Medicine
DX: R32 Unspecified urinary incontinence (principal)

== ENCOUNTER 2019-01-28 16:47 | Emergency (ER) | payer OTHER ==
[~2019-01-28] VITALS: Ht 167.6 cm; Wt 84.5 kg
[~2019-01-28 16:47] MED LIST changes: -CYCL10TA; -CYCL5TAB PO; -LIDO1PAD TOP; -METH1TAB40 PO; -OMEP-221; -SERT25TA88
[2019-01-28] MEDS ORDERED: OMEP-221 (16:54)
[2019-01-28] MEDS ORDERED: SERT25TA88 (16:54)
[2019-01-28] MEDS ORDERED: CYCL10TA (16:54)
[2019-01-28] MEDS ORDERED: CYCL5TAB PO (18:39)
[2019-01-28] MEDS ORDERED: KETOROLAC 60 MG/2 ML VIAL (J1885) IM ONE (19:45)
[2019-01-28] MEDS ORDERED: diazePAM 10 MG TAB PO ONE (19:45)
[2019-01-28] MEDS ORDERED: methylPREDNISolone INJ 125 MG/2 ML VIAL (J2930) IM ONE (19:45)
[2019-01-28] MEDS ORDERED: ACETAMINOPHEN 325 MG TAB PO ONE (22:15)
[2019-01-28] MEDS ORDERED: LIDOCAINE 5% (LIDODERM) PATCH TD ONE (22:15)
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
[2019-01-28] MEDS ORDERED: METH1TAB40 PO (23:57)
[2019-01-28] MEDS ORDERED: LIDO1PAD TOP (23:57)
[2019-01-28] MEDS ORDERED: PRED20TA PO (23:59)
[2019-01-29 00:05] VITALS: BP 127/60
[2019-01-29] MEDS ORDERED: **NOTE PATIENT COMMENT** MISC XX SCH (10:00)
== END 2019-01-29 00:09 | disposition home or self-care (01) ==
LOC: M ED 16:47
DX: M51.26 Other intervertebral disc displacement, lumbar region (principal); R20.0 Anesthesia of skin; J45.909 Unspecified asthma, uncomplicated; Z79.899 Other long term (current) drug therapy; Z91.040 Latex allergy status; Z87.891 Personal history of nicotine dependence
CPT/HCPCS: 72148; 96372; 99283; J1885; J2930

== ENCOUNTER 2019-03-07 16:17 | Emergency (ER) | payer OTHER ==
[~2019-03-07] VITALS: Ht 167.6 cm; Wt 87.7 kg
[~2019-03-07 16:17] MED LIST changes: +CYCL10TA; +CYCL5TAB PO; +LIDO1PAD TOP; +METH1TAB40 PO; +OMEP-221; +SERT25TA88
[2019-03-07] MEDS ORDERED: BENA2CRE3 TOP (16:55)
[2019-03-07] MEDS ORDERED: BENA25CA4 PO (16:55)
[2019-03-07] MEDS ORDERED: ATOR1TAB21 (16:55)
[2019-03-07] MEDS ORDERED: BACT800T5 PO (17:42)
[2019-03-07 17:50] VITALS: BP 126/71
== END 2019-03-07 17:51 | disposition home or self-care (01) ==
LOC: M ED 16:17
DX: S50.861A Insect bite (nonvenomous) of right forearm, initial encounter (principal); X58.XXXA Exposure to other specified factors, initial encounter; Y92.9 Unspecified place or not applicable; Y93.H2 Activity, gardening and landscaping; Y99.9 Unspecified external cause status; J45.909 Unspecified asthma, uncomplicated; G43.909 Migraine, unspecified, not intractable, without status migrainosus; K21.9 Gastro-esophageal reflux disease without esophagitis; M54.9 Dorsalgia, unspecified; F41.9 Anxiety disorder, unspecified; Z79.899 Other long term (current) drug therapy; Z91.040 Latex allergy status

== ENCOUNTER → 2019-03-11 | Outpatient (CLI) | payer OTHER ==
[~2019-03-11] MED LIST changes: +ATOR1TAB21; +BACT800T5 PO; +BENA25CA4 PO; +BENA2CRE3 TOP; +MEDR4PAK PO; -OMEP40CA2 PO; +OMEP40CA97 PO; +SERT25TA21; -SERT25TA88; +SERT50TA29; -TRAZ10TA PO; +TRAZ1TAB12 PO
--- NOTE | 2019-03-11 13:29 | REPMRS ---
Patient History The patient states she has not had a clinical breast exam in over a year. Patient is postmenopausal. Family history of breast cancer at age 45 in mother, colorectal cancer under age 50 in maternal uncle. 3D TOMOSYNTHESIS WAS PERFORMED. [facility] for [facility] 14.5%. Digital Woman Screen Mammo: March 11, 2019 - Exam #: [id number] Bilateral CC and MLO view(s) were taken. Technologist: Tena Lovelace, Technologist Prior study comparison: September 29, 2017, digital woman screen mammo performed at [facility]. 2017, right breast digital mammo diagnostic unilateral, performed at [age]. FINDINGS: There are scattered fibroglandular densities. There has been no change in the appearance of the mammogram from the prior studies. There is a mild amount of residual fibroglandular tissue which is fairly symmetric. There is no interval development of dominant mass, architectural distortion, or clustered microcalcification suggestive of malignancy. Assessment: BI-RADS/ACR category 1 mammogram. Negative Mammogram. Recommendation Routine screening mammogram in 1 year (for women over age 40). This mammogram was interpreted with the aid of an FDA-approved computer-aided dectection system. Electronically Signed By: Shawn Childs MD 03/11/19 0068
== END ==
LOC: M WHC 12:15
PROVIDERS: ATTEND Family Medicine
DX: Z12.31 Encounter for screening mammogram for malignant neoplasm of breast (principal); Z80.3 Family history of malignant neoplasm of breast; Z80.0 Family history of malignant neoplasm of digestive organs

== ENCOUNTER 2019-06-19 12:43 | Emergency (ER) | payer OTHER ==
[~2019-06-19] VITALS: Ht 167.6 cm; Wt 89.6 kg
[~2019-06-19 12:43] MED LIST changes: -MEDR4PAK PO; -SERT50TA29
[2019-06-19] MEDS ORDERED: SERT50TA29 (12:51)
[2019-06-19 13:45] LABS: INFLUENZA A AMPLIFICATION NEGATIVE (NEGATIVE); INFLUENZA B AMPLIFICATION NEGATIVE (NEGATIVE)
[2019-06-19] MEDS ORDERED: methylPREDNISolone INJ 125 MG/2 ML VIAL (J2930) IM ONE (14:00)
[2019-06-19] MEDS ORDERED: IPRATROPIUM 0.5MG/ALBUTEROL 2.5MG INH SOL UD 3ML (DUONEB)(J7620) NEB ONE ×2 (14:00→15:15)
--- NOTE | 2019-06-19 14:32 | REP ---
CHEST, TWO VIEWS: There is no evidence of acute infiltrate. No pleural effusion is seen. The heart is normal in size. The mediastinal silhouette is unremarkable. The visualized osseous structures are intact. IMPRESSION: No acute pulmonary disease. Electronically Signed by Shawn Childs MD 06/19/2019 04:06 P
[2019-06-19] MEDS ORDERED: MEDR4PAK PO (15:29)
[2019-06-19 15:36] VITALS: BP 137/70
== END 2019-06-19 15:42 | disposition home or self-care (01) ==
LOC: M ED 12:43
DX: J45.901 Unspecified asthma with (acute) exacerbation (principal); Z98.890 Other specified postprocedural states; Z79.899 Other long term (current) drug therapy; Z91.040 Latex allergy status
CPT/HCPCS: 71046; 87502; 94640; 96372; 99283; J2930

== ENCOUNTER → 2019-09-10 | Outpatient (REF) | payer OTHER ==
[~2019-09-10] MED LIST changes: +MEDR4PAK PO; +SERT50TA29
== END ==
LOC: M SFHCPLAZ 09:20
PROVIDERS: ATTEND Family Medicine
DX: H66.90 Otitis media, unspecified, unspecified ear (principal)

== ENCOUNTER → 2019-09-10 | Outpatient (REF) | payer OTHER | LOC: M SFHCPLAZ 13:05 | PROVIDERS: ATTEND Student in an Organized Health Care Education/Training Program | DX: H66.90 Otitis media, unspecified, unspecified ear (principal) ==

== ENCOUNTER → 2019-09-13 | Outpatient (REF) | payer OTHER ==
[2019-09-13 15:53] LABS: PLATELET COUNT, AUTOMATED 194 10^3/uL (150-450)
[2019-09-13 16:02] LABS: INR 0.95; PROTHROMBIN TIME 12.4 SECONDS (11.8-14.0)
[2019-09-13 16:03] LABS: PARTIAL THROMBOPLASTIN TIME 29.5 SECONDS (25.0-38.4)
[2019-09-13 16:13] LABS: COLLAGEN EPINEPHRINE 97 SECONDS (74-162)
== END ==
LOC: M LABDRAW1 13:55
PROVIDERS: ATTEND Physician Assistant
DX: M47.817 Spondylosis without myelopathy or radiculopathy, lumbosacral region (principal)

== ENCOUNTER → 2019-10-13 | Outpatient (CLI) | payer OTHER ==
[~2019-10-13] MED LIST changes: +CYCL-707; -CYCL10TA
== END ==
LOC: M RAD 12:19
PROVIDERS: ATTEND Physician Assistant
DX: Z12.2 Encounter for screening for malignant neoplasm of respiratory organs (principal); Z87.891 Personal history of nicotine dependence

== ENCOUNTER → 2019-10-15 | Outpatient (REF) | payer OTHER | LOC: M SFHCWAGY 18:00 | PROVIDERS: ATTEND Nurse Practitioner Women's Health | DX: Z12.4 Encounter for screening for malignant neoplasm of cervix (principal) ==

== ENCOUNTER → 2019-10-19 | Outpatient (CLI) | payer MEDICAID, OTHER ==
[~2019-10-19] MED LIST changes: +LORA-674; +METH-1164 PO; -METH1TAB40 PO; +PANT40TA29; -PANT40TA3
--- NOTE | 2019-10-20 03:33 | REP ---
Nickel: Left lower quadrant pain. Clinical: Left lower quadrant pain . Technique: Transabdominal pelvic ultrasound. Findings: Bladder is unremarkable and measures 1.2 x 7.5 x 9.2 cm . Normal anteverted uterus measures 9.2 x 2.5 x 5.0 cm . The endometrial complex measures 2.8 mm thickness. No discrete uterine or endometrial abnormalities are appreciated. Bilateral ovaries are normal in appearance and vascularity without evidence for torsion. Right ovary measures 1.6 x 1.1 x 1.6 cm ; Left ovary measures 2.1 x 1.5 x 1.4 cm with 1.2 cm presumed physiologic cyst. No pelvic fluid or adnexal mass lesion. . Impression: 1. 1.2 cm left ovarian cyst likely physiologic.
== END ==
LOC: M WHC 13:20
PROVIDERS: ATTEND Nurse Practitioner Women's Health
DX: N83.202 Unspecified ovarian cyst, left side (principal); R10.2 Pelvic and perineal pain

== ENCOUNTER → 2019-11-16 | Outpatient (CLI) | payer OTHER ==
[~2019-11-16] MED LIST changes: -LORA-674; -METH-1164 PO; +METH1TAB40 PO; -PANT40TA29; +PANT40TA3
== END ==
LOC: M LABSMTC 11:06
PROVIDERS: ATTEND Physical Medicine & Rehabilitation
DX: Z03.818 Encounter for observation for suspected exposure to other biological agents ruled out (principal); Z11.59 Encounter for screening for other viral diseases

== ENCOUNTER → 2019-11-29 | Outpatient (REF) | payer OTHER | LOC: M SFHCWAGY 17:21 | PROVIDERS: ATTEND Nurse Practitioner Women's Health | DX: R87.612 Low grade squamous intraepithelial lesion on cytologic smear of cervix (LGSIL) (principal) ==

== ENCOUNTER 2020-02-02 13:37 | Emergency (ER) | payer OTHER ==
[~2020-02-02] VITALS: Ht 167.6 cm; Wt 87.3 kg
[~2020-02-02 13:37] MED LIST changes: +PANT40TA29; -PANT40TA3
[2020-02-02] MEDS ORDERED: LORA-674 (14:25)
[2020-02-02] MEDS ORDERED: FLUTISP (14:25)
[2020-02-02] MEDS ORDERED: dexameTHASONE 20MG/5ML VIAL (J1100 PER 1MG) IV ONE (14:30)
[2020-02-02] MEDS ORDERED: dexameTHASONE 20MG/5ML VIAL (J1100 PER 1MG) As Ordered ONE (14:32)
--- NOTE | 2020-02-02 14:32 | REPVR ---
PROCEDURE INFORMATION: Exam: XR Chest, 1 View Exam date and time: 02/02/2020 2:11 PM Age: 54 years old Clinical indication: Cough; Additional info: Chest pain TECHNIQUE: Imaging protocol: XR of the chest Views: 1 view. COMPARISON: CR Chest, 2 view PA, Lat 06/19/2019 1:56 PM FINDINGS: Lungs: Unremarkable. No consolidation. Pleural space: Unremarkable. No pleural effusion. No pneumothorax. Heart/Mediastinum: The cardiomediastinal silhouette is fairly stable in appearance, allowing for differences in technique. Bones/joints: Unremarkable. IMPRESSION: No evidence for acute pulmonary disease. Electronically signed by: Vance Santana On 02/02/2020 14:32:51 PM
[2020-02-02 14:33] LABS: BASO % 0.2 % (0.0-1.0); EOS % 0.1 % (0.0-3.0); HEMATOCRIT 42.2 % (36.0-47.0); HEMOGLOBIN 14.3 g/dl (12.0-15.5); LYMPH # 2.1 10^3/uL (1.5-5.0); LYMPH % 25.2 % (24.0-44.0); MEAN CORPUSCULAR HEMOGLOBIN 31.1 pg (27.0-33.0); MEAN CORPUSCULAR HGB CONC 33.9 g/dl (32.0-36.5); MEAN CORPUSCULAR VOLUME 91.7 fl (80.0-96.0); MONO # 0.4 10^3/uL (0.0-0.8); MONO % 4.1 % (0.0-5.0); NEUTROPHILS # 5.9 10^3/uL (1.5-8.5); NEUTROPHILS % 69.5 % (36.0-66.0); PLATELET COUNT, AUTOMATED 192 10^3/uL (150-450); WHITE BLOOD COUNT 8.5 10^3/uL (4.0-10.0)
[2020-02-02] MEDS: IPRATROPIUM 0.5MG/ALBUTEROL 2.5MG INH SOL UD 3ML (DUONEB) NEB SCH ×3 (14:33→15:17)
[2020-02-02 14:58] LABS: BLOOD UREA NITROGEN 15 MG/DL (7-18); CARBON DIOXIDE LEVEL 27 MEQ/L (21-32); CHLORIDE LEVEL 109 MEQ/L (98-107); CREATININE FOR GFR 0.84 MG/DL (0.55-1.30); GLOMERULAR FILTRATION RATE > 60.0 (>51); GLUCOSE, FASTING 125 MG/DL (70-100); POTASSIUM SERUM 3.7 MEQ/L (3.5-5.1); SODIUM LEVEL 142 MEQ/L (136-145)
[2020-02-02] MEDS ORDERED: PRED20TA PO (16:09)
[2020-02-02 16:14] VITALS: BP 130/66
--- NOTE | 2020-02-16 14:20 | ECGEPIP ---
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
== END 2020-02-02 16:38 | disposition home or self-care (01) ==
LOC: M ED 13:37
DX: J45.901 Unspecified asthma with (acute) exacerbation (principal); M51.36 Other intervertebral disc degeneration, lumbar region; E78.5 Hyperlipidemia, unspecified; K21.9 Gastro-esophageal reflux disease without esophagitis; F41.9 Anxiety disorder, unspecified; Z87.891 Personal history of nicotine dependence; Z79.899 Other long term (current) drug therapy; Z91.040 Latex allergy status
CPT/HCPCS: 71045; 80048; 85025; 93005; 93041; 94640; 94760; 96374; 99284; J1100

== ENCOUNTER → 2020-03-10 | Outpatient (CLI) | payer OTHER ==
[~2020-03-10] MED LIST changes: +LORA-674; +PROHANCE 279.3MG/ML 15ML VIAL As Ordered ONE; +PROHANCE 279.3MG/ML 5ML VIAL As Ordered ONE
--- NOTE | 2020-03-10 10:28 | REPVR ---
PROCEDURE INFORMATION: Exam: MR Lumbar Spine Without and With Contrast. Exam date and time: 03/10/2020 10:00 AM Age: 54 years old Clinical indication: Low back pain; Patient HX: R/O abcess per order; Additional info: Spondylosis lumbar region TECHNIQUE: Imaging protocol: Multiplanar magnetic resonance images of the lumbar spine without and with intravenous contrast. Contrast material: PROHANCE; Contrast volume: 17 ml; Contrast route: INTRAVENOUS (IV); COMPARISON: MRI-Spine, L.S. without con 01/28/2019 10:42 PM FINDINGS: Vertebrae: Unremarkable. Spinal cord: The conus medullaris is normal. L1-L2: No significant disc disease. No significant spinal canal stenosis. No neural foraminal stenosis. L2-L3: The L2-L3 level shows no evidence of a significant posterior disc herniation. There is moderate left facet arthropathy. There is no nerve root compression. L3-L4: The L3-L4 level shows no evidence of a significant posterior disc herniation. There is mild right and moderate left facet arthropathy. There is no nerve root compression. L4-L5: The L4-L5 level shows no evidence of a significant posterior disc herniation. There is moderate bilateral facet arthropathy with mild subarticular stenosis. There is no foraminal compromise. L5-S1: There is chronic disc narrowing at L5-S1 with Modic type 2 signal change. There is mild facet arthropathy. There is no nerve root compression. Soft tissues: Unremarkable. Other findings: There are no regions of abnormal enhancement. IMPRESSION: 1. The L2-L3 level shows no evidence of a significant posterior disc herniation. There is moderate left facet arthropathy. There is no nerve root compression. 2. The L3-L4 level shows no evidence of a significant posterior disc herniation. There is mild right and moderate left facet arthropathy. There is no nerve root compression. 3. The L4-L5 level shows no evidence of a significant posterior disc herniation. There is moderate bilateral facet arthropathy with mild subarticular stenosis. There is no foraminal compromise. 4. There is chronic disc narrowing at L5-S1 with Modic type 2 signal change. There is mild facet arthropathy. There is no nerve root compression. 5. There are no regions of abnormal enhancement. Electronically signed by: Neel Ware On 03/10/2020 10:27:50 AM
== END ==
LOC: M RAD 08:10
PROVIDERS: ATTEND Physician Assistant
DX: M47.817 Spondylosis without myelopathy or radiculopathy, lumbosacral region (principal); M51.26 Other intervertebral disc displacement, lumbar region
CPT/HCPCS: 72158; A9576

== ENCOUNTER → 2020-04-28 | Outpatient (CLI) | payer OTHER ==
[~2020-04-28] MED LIST changes: -PROHANCE 279.3MG/ML 15ML VIAL As Ordered ONE; -PROHANCE 279.3MG/ML 5ML VIAL As Ordered ONE
[2020-04-28 13:58] LABS: PLATELET COUNT, AUTOMATED 215 10^3/uL (150-450)
[2020-04-28 14:19] LABS: INR 0.89; PROTHROMBIN TIME 12.2 SECONDS (12.5-14.3)
[2020-04-28 14:20] LABS: PARTIAL THROMBOPLASTIN TIME 27.2 SECONDS (24.2-38.5)
== END ==
LOC: M PLALAB 10:39
PROVIDERS: ATTEND Physician Assistant
DX: M47.817 Spondylosis without myelopathy or radiculopathy, lumbosacral region (principal)

== ENCOUNTER → 2020-06-20 | Outpatient (REF) | payer OTHER | LOC: M SFHCPLAZ 15:11 | PROVIDERS: ATTEND Family Medicine | DX: Z01.818 Encounter for other preprocedural examination (principal) ==

== ENCOUNTER → 2020-06-21 | Outpatient (CLI) | payer OTHER ==
[~2020-06-21] MED LIST changes: +E-Z-GAS II EFFERVESCENT PACKET (SODIUM BICARB./CITRIC ACID/SIMETHICONE) As Ordered ONE; +E-Z-HD 98% w/w 340GM SUSP BTL As Ordered ONE; +E-Z-PAQUE 96% w/w SUSP 176GM BTL As Ordered ONE
--- NOTE | 2020-06-21 20:03 | REP ---
INDICATION: DYSPHAGIA. COMPARISON: None. TECHNIQUE: This procedure was performed under the direct supervision of Dr. Childs. Images were reviewed with Dr. Childs. Liquid barium and gas producing granules were given in the erect position as well as liquid barium in the prone oblique positions in order to perform a double contrast esophagram examination. 0.6 minutes of fluoro time was utilized for this procedure. FINDINGS: A single view PA chest x-ray is submitted as a review appraiser film. There is no change compared to a previous chest x-ray performed on 06/19/2019. The oral and pharyngeal stages of deglutition were unremarkable. Esophageal transport is prompt and efficient and there is no evidence of esophagitis, stricture or mucosal ring. There is a sliding-type hiatal hernia. There is gastroesophageal reflux demonstrated to the level of the thoracic inlet.. IMPRESSION: There is a sliding-type hiatal hernia. There is gastroesophageal reflux demonstrated to the level of the thoracic inlet. <Electronically signed by Ben Curz > 06/21/20 [id number] <Electronically signed by Shawn Childs > 06/21/201999
== END ==
LOC: M RAD 07:59
PROVIDERS: ATTEND Physician Assistant Medical
DX: R13.10 Dysphagia, unspecified (principal); K21.9 Gastro-esophageal reflux disease without esophagitis; K44.9 Diaphragmatic hernia without obstruction or gangrene

== ENCOUNTER → 2020-06-21 | Outpatient (CLI) | payer OTHER ==
[~2020-06-21] MED LIST changes: -E-Z-GAS II EFFERVESCENT PACKET (SODIUM BICARB./CITRIC ACID/SIMETHICONE) As Ordered ONE; -E-Z-HD 98% w/w 340GM SUSP BTL As Ordered ONE; -E-Z-PAQUE 96% w/w SUSP 176GM BTL As Ordered ONE
[2020-06-21 09:26] LABS: CALCIUM LEVEL 8.8 MG/DL (8.5-10.1); CREATININE FOR GFR 1.11 MG/DL (0.55-1.30); GLOMERULAR FILTRATION RATE 54.3 (>51); POTASSIUM SERUM 4.2 MEQ/L (3.5-5.1)
== END ==
LOC: M LAB 07:56
PROVIDERS: ATTEND Student in an Organized Health Care Education/Training Program
DX: Z01.818 Encounter for other preprocedural examination (principal); K44.9 Diaphragmatic hernia without obstruction or gangrene; K21.9 Gastro-esophageal reflux disease without esophagitis

== ENCOUNTER → 2020-07-05 | Outpatient (CLI) | payer OTHER ==
[~2020-07-05] MED LIST changes: +METH-1164 PO; -METH1TAB40 PO
[2020-07-05 15:05] LABS: C REACTIVE PROTEIN QUANTITATIV 0.38 MG/DL (0.00-0.30); RHEUMATOID FACTOR QUANT < 10.0 IU/ML (<15.0)
[2020-07-12 18:07] LABS: ANTINUCLEAR ANTIBODIES DIRECT Negative (Negative); HLA-B27 Negative (.)
== END ==
LOC: M LAB 13:58
PROVIDERS: ATTEND Physician Assistant
DX: M51.27 Other intervertebral disc displacement, lumbosacral region (principal)

== ENCOUNTER → 2020-07-30 | Outpatient (CLI) | payer OTHER ==
[~2020-07-30] MED LIST changes: +PANT40TA29 PO; +SUCR1TAB56 PO; +VITMTA PO
== END ==
LOC: M LABSMTC 09:28
PROVIDERS: ATTEND Anesthesiology
DX: Z01.818 Encounter for other preprocedural examination (principal); Z11.52 Encounter for screening for COVID-19

== ENCOUNTER 2020-08-04 13:05 | Day surgery (SDC) | payer OTHER ==
[~2020-08-04] VITALS: Ht 167.6 cm; Wt 92.4 kg
[~2020-08-04 13:05] MED LIST changes: +NS 1,000 ML IV ONE
[2020-08-04] MEDS ORDERED: propofoL 200 MG/20 ML VIAL As Ordered ONE (14:20)
[2020-08-04] MEDS ORDERED: LIDOCAINE 2% 100MG/5ML SDV (FOR ANES.) As Ordered ONE (14:20)
[2020-08-04] MEDS ORDERED: fentaNYL 100 MCG/2 ML INJECTION (J3010) As Ordered ONE (14:20)
--- OUTSIDE RECORDS SUMMARY | 2020-08-04 14:24 | CCD | Summary of Care ---
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 Name Role Phone HoytFuentes ortiz PCP Reason for Referral * External Surgery Case (Routine) Referred By Contact Referred To Contact Status Reason Specialty Diagnoses / Procedures Kathi Velasquez NP [address] [address] Email: [email or web address] Open Diagnoses Left carpal tunnel syndrome P rocedures Surgery Case Request, Outside Facility ONLY Reason for Visit * Reason Comments Follow-up right pinky Encounter Details Care Team Description Date Type Department Kathi Velasquez NP [address] [address] Trigger little finger of right hand (Tika josé Dx); Cubital tunnel syndrome on right; Right carpal tunnel syndrome; Left carpal tunnel syndrome 06/15/2020 Office Visit [facility] , [facility] [address] [phone] Allergies Comments Active Allergy Reactions Severity Noted Date Latex Anaphylaxis High 09/06/2016 Varenicline Tartrate Low 12/25/2018 documented as of this encounter (statuses as of 06/15/2020) Medications End Date Status Medication Sig Dispensed Refills Start Date Active [place]-3 Fatty Acids (FISH Take by mouth 0 OIL PO) Active Fluticasone-Salmeterol INHALE 1 PUFF 3 01 232-14 MCG/ACT AEPB BY MOUTH 9 TWICE DAILY Active Omeprazole 40 MG Oral Take 40 mg by 5 03/25/20 1 Capsule Delayed Release mouth daily 9 (PRILOSEC) Active Nitroglycerin 0.[address] under 0 Sublingual Tablet the tongue 8 Sublingual (NITROSTAT) Active Albuterol Sulfate (2.5 Take 2.5 mg 0 MG/3ML) 0.083% Inhalation by Nebulization Solution nebulization (PROVENTIL) every 6 (six) hours as needed for Wheezing Active Fluticasone Propionate 50 INSTILL ONE 0 10/08 MCG/ACT Nasal Suspension SPRAY IN EACH 0 (FLONASE) NOSTRIL ONCE DAILY Active Loratadine 10 MG Oral Take 10 mg by 0 10/30/19 2 Tablet (CLARITIN) mouth daily 0 Active Pregabalin 50 MG Oral TAKE ONE 0 09/13/19 2 Capsule (LYRICA) CAPSULE BY 0 MOUTH TWICE DAILY MAX DAILY DOSE TWO CAPSULES Active Sertraline HCl 100 MG Take 100 mg 0 07/30/19 2 Oral Tablet (ZOLOFT) by mouth 0 daily Active EQ One Daily Womens EQ ONE DAILY 0 Health Oral Tablet WOMENS HEALTH 9 TABS Active Pantoprazole Sodium 40 MG 0 Oral Tablet Delayed 1 Release (PROTONIX) Active Metoprolol Tartrate 25 MG Take 25 mg by 0 Oral Tablet (LOPRESSOR) mouth 0 documented as of this encounter (statuses as of 06/15/2020) Active Problems Problem Noted Date Numbness and tingling in right hand 12/23/2019 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 documented as of this encounter Last Filed Vital Signs Not on filedocumented in this encounter Progress Notes * Kathi Velasquez NP - 06/15/2020 2:00 PM EST Chief Complaint: Chief Complaint Patient presents with Follow-up right pinky Current Medications: has a current medication list which includes the following prescription(s): albuterol, eq one daily SynapCell, fluticasone, fluticasone -salmeterol, loratadine, metoprolol tartrate, nitroglycerin, omega-3 fatty acids , omeprazole, pantoprazole, pregabalin, and sertraline. Allergies and Reactions: Allergies as of 06/15/2020 - Reviewed 06/15/2020 Allergen Reaction Noted Latex Anaphylaxis 09/06/2016 Varenicline tartrate 12/25/2018 Past Medical History: Past Medical History: Diagnosis Date Arthritis Asthma DDD (degenerative disc disease), cervical Depression GERD (gastroesophageal reflux disease) High cholesterol Past Surgical History: Past Surgical History: Procedure Laterality Date SECTION 1985 ELBOW SURGERY Rt small finger trigger release and cubital tunnel release rt elebow. 02/29/20 EXPLORATORY LAPAROTOMY reversed tubal ligation 2000 Right ECTR SINUS SURGERY TRIGGER FINGER RELEASE Rt small finger trigger release and cubital tunnel release rt elebow. 02/29/20 Past Social History: Social History Socioeconomic History Marital status: Spouse name: Not on file Number of children: Not on file Years of education: Not on file Highest education level: Not on file Occupational History Not on file Social Needs Financial resource strain: Not on file Food insecurity Worry: Not on file Inability: Not on file Transportation needs Medical: Not on file Non-medical: Not on file Tobacco Use Smoking status: Former Smoker Types: Cigarettes Quit date: 2017 Years since quittin.0 Smokeless tobacco: Never Used Substance and Sexual Activity Alcohol use: Yes Comment: occasional Drug use: No Sexual activity: Not on file Lifestyle Physical activity Days per week: Not on file Minutes per session: Not on file Stress: Not on file Relationships Social connections Talks on phone: Not on file Gets together: Not on file Attends pentecostalism service: Not on file Active member of club or organization: Not on file Attends meetings of clubs or organizations: Not on file Relationship status: Not on file Intimate partner violence Fear of current or ex partner: Not on file Emotionally abused: Not on file Physically abused: Not on file Forced sexual activity: Not on file Other Topics Concern Not on file Social History Narrative Not on file 54-year-old female doing well status post right cubital tunnel release and right small finger trigger release 02/29/2020 prior to that she had endoscopic carpal tunnel release on the right side. She still has some intermittent paresthesias in the right small finger but it is much better than it was. She has some disco mfort at the surgical scar from the right small finger A1 whitney release. She d id attend therapy and it helped a little bit. She has a curling of her right sm all finger which is not new. She also complains of numbness and tingling that i s nearly constant in the left index middle and ring finger and she would like to proceed with carpal tunnel release on that side now. She tried wrist splinting and it was without relief. Review of Systems: Review of Systems denies fever chills sweats Physical Exam: There were no vitals taken for this visit. Well-developed well-nourished 54-year-old female alert and oriented x3 with atti tude. Maturing scar right medial elbow and at the A1 whitney of the right small finger. Both scars are little bit tender to palpation. There is no triggering in the right small finger. Good motion in the digits of the bilateral hands exc ept there is a little bit of curling in the right small finger which is not new for her. Left hand with good finger abduction abduction and palmar abduction. Positive Luh's compression test left wrist. Paresthesias left index middle a nd ring finger. Normal sensation in the right hand. Pertinent Findings if applicable (Lab, Radiology, etc): Nerve conduction Studies of the bilateral upper extremities Done 01/28/19 [facility] did reveal: 1. Mildly abnormal study 2. Possible minimal chronic left C6-7 radiculopathy 3. No definite right C5-T1 radiculopathy 4. Borderline mild right and left median neuropathy at the wrist, carpal tunnel syndrome 5. Comparison to the prior study dated 02/09/14 reveals interval development of t he right median neuropathy at the wrists Assessment: 1. Left carpal tunnel syndrome 2. Status post right endoscopic carpal tunnel release, right cubital tunnel rel ease, right small finger trigger release Plan: Diagnosis discussed. She has failed conservative treatment. At this poin t she would like to proceed with left endoscopic carpal tunnel release. Surgica l and postoperative course reviewed. Surgical risk reviewed. If the attending cannot see what is needed endoscopically would be converted to an open approach. Regarding the tenderness about the scar of the right small finger she is not i nterested in surgical treatment for that. She will continue with scar massage. She is happy with her outcome in the right hand overall. Patient discussed with the attending and they are in agreement with the surgical plan. The patient understands the potential risks and possible benefits of surgery. Th ey understand these risks to include but not limited to infection, bleeding, dam age to the arteries or nerves, blood clots, stiffness, need for further surgery, failure of implants, continued pain, and recurrent pain. They understand that there are significant anesthetic risks including . They understand these ri sks but secondary to the significant amount of symptoms they are experiencing th ey would like to proceed with surgical intervention. Pre-operative paperwork as well as a complete history and physical were completed today in the office. Th ey will return to the office after the surgery. Attending Dr. Boyce documented in this encounter Nursing Notes * Sophia Mtz LPN - 06/15/2020 2:00 PM EST Pre-Surgical Health Screening Tool Name: Claudia ARCINIEGA MR#: [id number] : 1965 Do have or have ever had the following: Notes: Testing Required: Over 50 years old yes Medical clearance, EKG Do you see a Human Resources Manager? For What? yes Who? Gregor Murphy MD Cardiology Since 01/31/2020 High Blood Pressure (Hypertension) no Med clearance, EKG, BMP (cardiac not req uired) High Cholesterol yes Med clearance, EKG Arrhythmia, Pacemaker, Defibrilator, Chest pain, Stable angina yes Palpitations Med and Cardiac clearance, EKG, BMP Congestive Heart Failure (CHF), Valve disease no Except Mitral Valve Prolapse Me d and Cardiac clearance, EKG, BMP Heart Attack, Stents no If < 6 mths, do not schedule @ [facility] Med and Cardiac clearance, EKG, BMP Diuretics (water pills) no Med clearance, EKG, BMP Blood thinners (anti-coagulants) no Protocol from prescribing MD CBC, PT/INR/PTT Do you see a Slip Bridge Operator? For what? yes Who? For Asthma COPD, Emphysema no Except asthma Pulmonology clearance, chest X-ray Tuberculosis no If active, do not schedule @ [facility] Sleep Apnea no CPAP? If presumed-sleep study needed or william @hospital; If dx'd - CPAP req for sx Diabetes no Med Clearance, EKG, BMP Seizures Do you see a Neurologist? no Controlled? Who? If uncontrolled or within 6 months, call ASC for direction Stroke no If <6 mths, do not william @ [facility] Med clearance, EKG Liver Disease, Hepatitis no Med clearance, BMP, CBC, PT/INR/PTT, Liver Function testing (LFT's) Kidney Conditions no Except Kidney Stones Med clearance, BMP, CBC, PT/INR/PTT Bleeding Disorder: Aplastic anemia, Sickle Cell Anemia no CBC, PT/INR/PTT Leukemia no Med clearance, CBC, Chest X-ray Have you been told you have a "difficult airway?" no If YES, Not an ASC zhen te Do you or have you seen any other doctors?" yes If Yes, Who? For What?Gastro IMPORTANT NOTE: If known/previous difficult airway, not an ASC candidate BMI: There is no height or weight on file to calculate BMI. If BMI over 45, anes thesia airway check required before scheduling Sx; contact ASC to be seen same d ay if possible PCP: Fuentes Hoyt DO Form Completed/Reviewed by: Sophia Mtz LPN documented in this encounter Plan of Treatment Order Schedule Name Type Priority Associated Diag noses 1 Occurrences starting 06/15/2020 until 12/13/2020 COVID-19 PCR Microbiology Routine Left carpal ayde radha syndrome Health Maintenance Due Date Last Done Comments Hepatitis C Screening (B. 1965 3221-3107) MMR Vaccines (1 of 1 - 1965 Standard series) Varicella Vaccines (1 of 1965 2 - 2-dose childhood series) DTaP,Tdap,and Td Vaccines 1971 (1 - Tdap) HIV Screening 1977 Cervical Cancer Screening 1985 5 years Colon Cancer Screening 10 2014 yrs Breast Cancer Screening 2 08/29/2018 08/29/2016 years Influenza Vaccine 03/09/2020 05/03/2019, 04/15/2017 Pneumococcal Vaccine: 65+ 2029 Years (1 of 1 - PPSV23) HIB Vaccines Aged Out No longer eligible based on patient's age to complete this topic Hepatitis A Vaccines Aged Out No longer eligibl e based on patient's age to complete this topic Hepatitis B Vaccines Aged Out No longer eligibl e based on patient's age to complete this topic IPV Vaccines Aged Out No longer eligible based on patient's age to complete this topic Pneumococcal Vaccine: Aged Out No longer eligib le based on patient's age to Pediatrics (0 to 5 Years) complete this topic and At-Risk Patients (6 to 64 Years) documented as of this encounter Procedures Comments Procedure Name Priority Date/Time Associated Diag brittany SURGERY CASE REQUEST Routine 06/15/2020 Left carp al tunnel OUTSIDE FACILITY ONLY 2:23 PM EST syndrome documented in this encounter Results Not on filedocumented in this encounter Visit Diagnoses Diagnosis Trigger little finger of right hand - P rimary Trigger finger (acquired) Cubital tunnel syndrome on right Lesion of ulnar nerve Right carpal tunnel syndrome Carpal tunnel syndrome Left carpal tunnel syndrome Carpal tunnel syndrome documented in this encounter
--- OUTSIDE RECORDS SUMMARY | 2020-08-04 14:25 | CCD ---
Continuity of Care Document (CCD) Created on: 06/14/2020 Claudia Holcomb External Reference #: [id number] : [id number] Sex: Female Author Author Claudia REYNOLDS RPA-C Organization Unknown Address [address], [address] [place] [address] Phone [phone] Care Team Providers Care Hot Blaster Name Role Phone Marie Reynolds AUTM Candida Cobb M.D. AUTM [phone] Ramon Good M.D. AUTM [phone] Problems Active Problems Provider Date Gastroesophageal reflux disease Maxwell Lamas MD Onset: 0 02/14/2016 Candidal otitis externa Maxwell Lamas MD Onset: 6 Deviated nasal septum Maxwell Lamas MD Onset: 02/14/2016 Chronic pansinusitis Maxwell Lamas MD Onset: 02/14/2016 Chronic rhinitis Maxwell Lamas MD Onset: 02/14/2016 Chronic laryngitis Maxwell Lamas MD Onset: 02/14/2016 Wheezing Joe Ramos D.O. Onset: 08/07/2016 Nicotine dependence, cigarettes, with other nicotine-i nduced disorders Joe Ramos D.O. Onset: 08/07/2016 Difficulty breathing Joe Ramos D.O. Onset: 08/07/2016 Mild intermittent asthma Joe Ramos D.O. Onset: 08/30/19 17 Allergic rhinitis Joe Ramos D.O. Onset: 08/29/2016 Full respiratory system examination Joe Ramos D.O. Onse t: 08/29/2016 Screening for malignant neoplasm of colon Ricky Savage MD Onset: 07/07/2017 Benign neoplasm of colon Ricky Savage MD Onset: 01/29/20 18 Dysphagia Ricky Savage MD Onset: 07/07/2017 Epigastric pain Marie Reynolds, RPA-C Onset: 07/07 Exacerbation of intermittent asthma FEDERICO Carmen Onse t: 07/18/2017 Chronic maxillary sinusitis Maxwell Lamas MD Onset: 06/23 Disorder of nasal cavity Maxwell Lamas MD Onset: 06/23/19 18 Ex-smoker FEDERICO Carmen Onset: 09/16/2017 Abdominal pain Marie Reynolds, RPA-C Onset: 12/04 Nausea Marie Reynolds, RPA-C Onset: 12/04 Heartburn Marie Reynolds, RPA-C Onset: 12/04 Pneumonia FEDERICO Carmen Onset: 08/20/2018 Other nonspecific abnormal finding of lung field FEDERICO Mayen Onset: 08/20/2018 Social History Type Date Description Comments Sex Unknown ETOH Use Rarely Recreational Drug Use Denies Drug Use Tobacco Use Start: 06/09/80 End: 06/09/17 Patient is a forme r smoker hx: 1/2ppweek on and off Smoking Status Reviewed: 05/24/20 Patient is a former smoker hx : 1/2ppweek on and off Allergies, Adverse Reactions, Alerts Active Allergies Reaction Severity Comments Date NKDA 02/08/2016 Latex 02/26/2017 Medications Active Medications SIG Qnty Indications Ordering Provide r Date Pantoprazole Sodium 40mg Tablets D R take 1 tablet by mouth twice daily. 60tabs K21.9 Ricky Savage MD Carafate 1gm Tablets Take 1 tab by mouth 30 minutes before meals and at bedtime. 120tabs K21.9 Ricky lenz MD 06/14/2020 Airduo Respiclick 232/14 232-14mcg/Act Aerosol 1 puff twice a day 1units J45.20 Lucrecia SiddiquiOAshley 08/20 Proair HFA 108(90Base) mcg/Act Aer osol 2 puffs four times a day as needed 8.500units J45.21 Lucrecia SiddiquiO . 09/16/2017 Albuterol Sulfate (2 .5mg/3ML) 0.083% Nebulizer 1 vial via neb qid/prn 360ml Joe Ramos D.O. 0 Fish Oil 1200mg Capsules 1 tab by mouth twice a day Unknown One Daily Womens Tablets 1 by mouth every day Unknown History Medications Prednisone 10mg Tablets 4 tabs daily x 5days, then 3 tabs daily x 5 days, then 2 tabs daily x 5 days, then 1 tab daily x 5 days 50tabs J45.21 Laura Siddiqui.O. 05/24/2020 - Prednisone 20mg Tablets 1 tab by mouth daily x 5 days 5tabs J45.21 Laura Siddiqui.O. 04/24/2020 - Cefdinir 300mg Capsules 1 tab by mouth twice a day x 10 days 20caps J45.21 Laura Siddiqui.O. 0 - 06/24/2019 Immunizations CPT Code Status Date Vaccine Lot # [id number] Given 04/18/2020 Afluria, Quadrivalent, 0.5ml , [facility]# [id number] Given 02/23/2018 Prevnar 13 [id number] Given 04/10/2016 Influenza Virus Split 3 Yrs And Above For Intramuscular Use Vital Signs Date Vital Result Comment 06/14/2020 1:38pm BP Systolic 122 mmHg BP Diastolic 74 mmHg Height 66 inches 5'6" Weight 205.00 lb BMI (Body Mass Index) 33.1 kg/m2 [place] Body Weight 130 lb Weight 92.988 kg BSA (Body Surface Area) 2.02 m2 05/24/2020 9:34am BP Systolic 112 mmHg BP Diastolic 82 mmHg Heart Rate 84 /min O2 % BldC Oximetry 96 % Body Temperature 96.6 F Height 66 inches 5'6" Weight 205.00 lb BMI (Body Mass Index) 33.1 kg/m2 [place] Body Weight 130 lb Weight 92.988 kg BSA (Body Surface Area) 2.02 m2 Results Test Acquired Date Facility Test Result H/L Range Note FVL/[place] 05/24/2020 [employer] PDFReport SEE IMAGE FVC-Pred 3.68 L FVC-Pre 2.74 L FVC-%Pred-Pre 74 L FVC-LLN 2.94 L Fev1-Pred 2.88 L Fev1-Pre 2.08 L Fev1-%Pred-Pre 72 L Fev1-LLN 2.25 L Fev6-Pred 3.57 L Fev6-Pre 2.74 L Fev6-%Pred-Pre 76 L Fev6-LLN 2.84 L Ssz6pmx-Gziw 79 % Gfg6yhq-Ofz 76 % Pit6xgg-%Pred-Pre 96 % Cca2pfb-KQZ 69 % Wue6wpz-Ezbd 97 % Wak4ktq-Mnt 100 % Qpb5gic-%Pred-Pre 103 % FEFMax-Pred 6.85 L/E/sec FEFMax-Pre 4.73 L/E/sec FEFMax-%Pred-Pre 69 L/E/sec FEFMax-LLN 5.03 L/E/sec Kiv5108-Dvlw 2.68 L/E/sec Mwk8128-Pap 1.68 L/E/sec Jga7600-%Pred-Pre 62 L/E/sec Jwd9119-GAG 1.36 L/E/sec ExpTime-Pre 4.23 sec Hdf5vtc2-Qcid 82 % Ele3vly5-Vsy 76 % Zzg7chr1-%Pred-Pre 93 % Ikt1zmv0-DVE 73 % FVL/Ede 04/24/2020 [email or web address] PDFReport SEE IMAGE FVC-Pred 3.68 L FVC-Pre 2.79 L FVC-%Pred-Pre 75 L FVC-LLN 2.94 L Fev1-Pred 2.88 L Fev1-Pre 2.20 L Fev1-%Pred-Pre 76 L Fev1-LLN 2.25 L Fev6-Pred 3.57 L Fev6-Pre 2.79 L Fev6-%Pred-Pre 78 L Fev6-LLN 2.84 L Kxj9klu-Ohof 79 % Cuo0gzg-Wow 79 % Pdt4idn-%Pred-Pre 99 % Sxi8afd-SBD 69 % Qzm8xde-Ziae 97 % Wzf6nvy-Ypy 100 % Qnj8jhc-%Pred-Pre 103 % FEFMax-Pred 6.85 L/E/sec FEFMax-Pre 4.76 L/E/sec FEFMax-%Pred-Pre 69 L/E/sec FEFMax-LLN 5.03 L/E/sec Hkz4553-Hwbx 2.68 L/E/sec Kkj6293-Tzs 2.09 L/E/sec Ujs0156-%Pred-Pre 78 L/E/sec Ces6075-CFC 1.36 L/E/sec ExpTime-Pre 4.24 sec Xee8rcr5-Jofd 82 % Hox3yup5-Zof 79 % Boz4orf5-%Pred-Pre 96 % Vmk2jvk5-RNK 73 % Procedures Date Code Description Status 05/24/2020 22229 Spirometry Completed 04/24/2020 80077 Spirometry Completed Medical Devices Description No Information Available Encounters Type Date Location Provider Dx Diagnosis Office Visit 05/24/2020 9:30a [facility] FEDERICO Carmen J45.21 Mild intermittent asthma with (acute) ex acerbation Z87.891 Personal history of nicotine dependence Office Visit 04/24/2020 9:00a [facility] FEDERICO Carmen J45.21 Mild intermittent asthma with (acute) ex acerbation Z87.891 Personal history of nicotine dependence Assessments Date Code Description Provider 06/14/2020 K21.9 Gastro-esophageal reflux disease without esophagitis Marie Reynolds RPA-Mary 06/14/2020 R13.10 Dysphagia, unspecified MARCELINO Whitehead 06/14/2020 R10.10 Upper abdominal pain, unspecifie d Marie Reynolds RPA-Mary 05/24/2020 J45.21 Mild intermittent asthma with (a cute) exacerbation FEDERICO Carmen 05/24/2020 Z87.891 Personal history of nicotine dep FEDERICO Chapa 04/24/2020 J45.21 Mild intermittent asthma with (a cute) exacerbation FEDERICO Carmen 04/24/2020 Z87.891 Personal history of nicotine dep mimience FEDERICO Carmen Plan of Treatment Future Appointment(s):* 07/04/2020 11:30 am - FEDERICO Carmen at [facility] 06/14/2020 - Marie Reynolds RPA-Mary* K21.9 Gastro-esophageal reflux disease without esophagitis * R13.10 Dysphagia, unspecified * R10.10 Upper abdominal pain, unspecified * * New Medication:* Pantoprazole Sodium 40 mg * Carafate 1 gm * New Orders:* Endoscopy with possible dilation, Ordered: 06/14/20 * Comments:* Will arrange for upper endoscopy and possible dilation. Reviewed risks and benefits of the procedure, as well as other options, with the patient. Prep for this procedure was discussed with patient. Patient verbalized understanding of all of the above and is in agreement to proceed. Patient will seek medical attention for any acute changes. Will monitor. Functional Status Functional Condition Comment Date Status Independent with all ADL's Activ e Independent with all IADL's Acti ve Mental Status Mental Condition Comment Date Status Cognitive ability not impaired A ctive Referrals Description No Information Available
--- OUTSIDE RECORDS SUMMARY | 2020-08-04 14:25 | CCD | Continuity of Care Document ---
Author Author Claudia VELASQUEZ PA Organization Unknown Address [address] [place] [address] Phone [phone] Care Team Providers Care Awning Spreader Name Role Phone Corinna Hinton MD [facility] [phone] Problems Active Problems Provider Date Pure hypercholesterolemia Jorge Leyva PA-C Onset: Abdominal pain Onset: 12/13/2017 Acute exacerbation of asthma Onset: 10/2016 Atypical chest pain Onset: 01/16/2017 Intervertebral disc disorder Onset: 08/2018 Disorder of lumbar disc Onset: 8 Cervical radiculopathy Onset: 08/01/2017 Chest pain Onset: 08/08/2018 Depressive disorder Onset: 03/14/2016 Esophagitis Onset: 01/16/2017 Exacerbation of asthma Onset: 03/14/2016 Gastritis Onset: 11/14/2017 Gastroesophageal reflux disease Onset: 1 Headache Onset: 07/01/2017 Hyperlipidemia Onset: 03/14/2016 Hypoxia Onset: 04/13/2017 Low back pain Onset: 08/01/2017 Osteoarthritis Onset: 08/01/2017 Hand pain Onset: 12/13/2018 Streptococcal sore throat Onset: 018 Pneumonia Onset: 08/08/2018 Sinusitis Onset: 07/01/2017 Sprain of ankle Onset: 12/21/2016 Strain of neck muscle Onset: 12/09/2018 Tobacco user Onset: 03/14/2016 Social History Type Date Description Comments Sex Unknown ETOH Use Rarely consumes alcohol Tobacco Use Start: Unknown End: Unknown Patient is a former smoker quit over a year, smoked about 5 cigarettes a day Smoking Status Reviewed: 04/28/20 Patient is a former smoker qu it over a year, smoked about 5 cigarettes a day Allergies, Adverse Reactions, Alerts Active Allergies Reaction Severity Comments Date Latex 08/05/2017 Medications Active Medications SIG Qnty Indications Ordering Provide r Date Duloxetine HCL 20mg Caps DR Part 1 by mouth every morning x2 weeks then increase to 2 caps by mouth daily (NF) 60caps M47.817 Joe Ruiz MD 02/17/2020 Pregabalin 50mg Capsules 1 by mouth twice a day (NF) 60caps Joe Ruiz MD 09/13/2019 Fish Oil 1000mg Capsules 1 by mouth twice every day Joe Ruiz MD 02/24/[address] 1 by mouth every day Unknown Albuterol Sulfate (2 .5mg/3ML) 0.083% Nebulizer Every 6 Hours as needed for Dyspnea Unkno wn Ventolin HFA 108(90Base) mcg/Act A erosol Inhale Two Puffs By Mouth Four Times Daily as Needed Unknown Levalbuterol HCL 1.25mg/3ML Nebulizer Unknown Immunizations CPT Code Status Date Vaccine Lot # [id number] Given 04/15/2017 Influenza Virus Vaccine Split Virus Use For Individual 3Yr Older 41272 Refused 08/09/2018 Influenza Virus Vaccine Split Virus Use For Individual 3Yr Older Vital Signs Date Vital Result Comment 03/17/2020 1:33pm Body Temperature 96.0 F 11/02/2019 11:03am Body Temperature 97.2 F Height 66 inches 5'6" Weight 198.00 lb BMI (Body Mass Index) 32.0 kg/m2 Results Test Acquired Date Facility Test Result H/L Range Note Order 05/01/2020 [facility] [address] [place] [address] [facility] Injections <pending> Prothrombin Time/Inr 04/28/2020 [facility] [address] [place] [address] (315)- - Prothrombin Time 12.2 seconds Normal 12.5-14.3 Inr 0.89 Normal 1 Laboratory test finding 04/28/2020 [facility] [address] [place] [address] (315)- - Partial Thromboplastin Time 27.2 seconds Normal 24.2-3 8.5 Platelet Count, Automated 215 10 Normal 150-450 1 THERAPUTIC HUMAN INR VALUES INDICATIONS NORMAL RANGES PROPHYLAXIS/TREATMENT OF: VENOUS THROMBOSIS 2.0-3.0 PULMONARY EMBOLISM 2.0-3.0 PREVENTION OF SYSTEMIC EMBOLISM FROM: TISSUE HEART VALVES 2.0-3.0 ACUTE MYOCARDIAL INFARCTION 2.0-3.0 VALVULAR HEART DISEASE 2.0-3.0 ATRIAL FIBRILLATION 2.0-3.0 MECHANICAL VALVES(HIGH RISK) 2.5-3.5 RECURRENT MYOCARDIAL INFARCTION 2.5-3.5 Procedures Date Code Description Status 04/25/2020 22211 Manual Therapy Each 15 Minutes C ompleted 04/25/2020 43676 Therapeutic Procedure, Each 15 M inutes Completed 04/25/2020 02289 Therapeutic Procedure, Each 15 M inutes Completed 04/19/2020 98485 Manual Therapy Each 15 Minutes C ompleted 04/19/2020 82985 Therapeutic Procedure, Each 15 M inutes Completed 04/14/2020 55198 Manual Therapy Each 15 Minutes C ompleted 04/14/2020 67173 Therapeutic Procedure, Each 15 M inutes Completed 04/06/2020 92215 Manual Therapy Each 15 Minutes C ompleted 04/06/2020 63845 Therapeutic Procedure, Each 15 M inutes Completed 04/04/2020 94342 Manual Therapy Each 15 Minutes C ompleted 04/04/2020 36335 Therapeutic Procedure, Each 15 M inutes Completed 04/04/2020 43042 Hot Or Cold Packs Completed 03/30/2020 64972 Hot Or Cold Packs Completed 03/30/2020 45449 Therapeutic Procedure, Each 15 M inutes Completed 03/30/2020 57335 Therapeutic Procedure, Each 15 M inutes Completed 03/28/2020 73765 Physical Therapy Eval - Mod Comp lexity Completed 01/31/2020 30056 Moderate Sedation Se rvices; Same Phys Intl 15 Mins; PT >= 5 Years Completed 01/31/2020 52204 Epidurography Radiological Super vision & Interpretation Completed 01/31/2020 57339 Injec Anesthetic Age nt/Steroid Trans Epidural Lumb/Sacral Ea Addl Completed 01/31/2020 86113 Injec Anesthetic Age nt/Steroid Trans Epidural Lumb/Sacral Single Completed 11/19/2019 96254 Moderate Sedation Se rvices; Same Phys Intl 15 Mins; PT >= 5 Years Completed 11/19/2019 06109 Epidurography Radiological Super vision & Interpretation Completed 11/19/2019 56658 Injec Anesthetic Age nt/Steroid Trans Epidural Lumb/Sacral Ea Addl Completed 11/19/2019 49984 Injec Anesthetic Age nt/Steroid Trans Epidural Lumb/Sacral Single Completed Medical Devices Description No Information Available Encounters Type Date Location Provider Dx Diagnosis Office Visit 04/28/2020 9:15a FEDERICO Amin M47.817 Spondyls w/o myelopathy or radiculopathy, lumbosacr region M51.37 Other intervertebral disc de generation, lumbosacral region M51.27 Other intervertebral disc di splacement, lumbosacral region Office Visit 03/17/2020 1:30p FEDERICO Amin M47.817 Spondyls w/o myelopathy or radiculopathy, lumbosacr region M51.37 Other intervertebral disc de generation, lumbosacral region M51.27 Other intervertebral disc di splacement, lumbosacral region Office Visit 02/17/2020 3:30p [place] M47.817 Spondyls w/o myelopathy or radiculopathy, lumbosacr region M51.37 Other intervertebral disc de generation, lumbosacral region M51.27 Other intervertebral disc di splacement, lumbosacral region M48.061 Spinal stenosis, lumbar bo on without neurogenic dudley Office Visit 12/20/2019 11:15a FEDERICO Amin M47.817 Spondyls w/o myelopathy or radiculopathy, lumbosacr region M51.27 Other intervertebral disc di splacement, lumbosacral region M51.37 Other intervertebral disc de generation, lumbosacral region M48.061 Spinal stenosis, lumbar bo on without neurogenic dudley Assessments Date Code Description Provider 04/28/2020 M47.817 Spondylosis without myelopathy or radiculopathy, lumbosacral region FEDERICO Cisneros 04/28/2020 M51.37 Other intervertebral disc degene ration, lumbosacral region FEDERICO Cisneros 04/28/2020 M51.27 Other intervertebral disc displa cement, lumbosacral region FEDERICO Cisneros 04/25/2020 M47.817 Spondylosis without myelopathy or radiculopathy, lumbosacral region Russ Long Cook P.T. 04/25/2020 M51.37 Other intervertebral disc degene ration, lumbosacral region Russ Long Cook P.T. 04/25/2020 M51.27 Other intervertebral disc displa cement, lumbosacral region Russ Long Cook P.T. 04/25/2020 M65.351 Trigger finger, right little fin prabhu Russ Long Cook P.T. 04/25/2020 G56.21 Lesion of ulnar nerve, right upp er limb Russ Long Eloy P.T. 04/19/2020 M47.817 Spondylosis without myelopathy or radiculopathy, lumbosacral region Dasha Gotti, PLATE GRAINER APPRENTICE 04/19/2020 M51.37 Other intervertebral disc degene ration, lumbosacral region Dasha Gotti, PLATE GRAINER APPRENTICE 04/19/2020 M51.27 Other intervertebral disc displa cement, lumbosacral region Dasha Gotti, PLATE GRAINER APPRENTICE 04/19/2020 M65.351 Trigger finger, right little fin prabhu Dasha Gotti, PLATE GRAINER APPRENTICE 04/19/2020 G56.21 Lesion of ulnar nerve, right upp er limb Dasha Gotti, PLATE GRAINER APPRENTICE 04/14/2020 M47.817 Spondylosis without myelopathy or radiculopathy, lumbosacral region Danamarie Ortolano, PLATE GRAINER APPRENTICE 04/14/2020 M51.37 Other intervertebral disc degene ration, lumbosacral region Danamarie Ortolano, PLATE GRAINER APPRENTICE 04/14/2020 M51.27 Other intervertebral disc displa cement, lumbosacral region Danamarie Ortolano, PLATE GRAINER APPRENTICE 04/14/2020 M65.351 Trigger finger, right little fin prabhu Danamarie Ortolano, PLATE GRAINER APPRENTICE 04/14/2020 G56.21 Lesion of ulnar nerve, right upp er limb Danamarie Ortolano, PLATE GRAINER APPRENTICE 04/06/2020 M47.817 Spondylosis without myelopathy or radiculopathy, lumbosacral region Danamarie Ortolano, PLATE GRAINER APPRENTICE 04/06/2020 M51.37 Other intervertebral disc degene ration, lumbosacral region Danamarie Ortolano, PLATE GRAINER APPRENTICE 04/06/2020 M51.27 Other intervertebral disc displa cement, lumbosacral region Danamarie Ortolano, PLATE GRAINER APPRENTICE 04/06/2020 M65.351 Trigger finger, right little fin prabhu Danamarie Ortolano, PLATE GRAINER APPRENTICE 04/06/2020 G56.21 Lesion of ulnar nerve, right upp er limb Danamarie Ortolano, PLATE GRAINER APPRENTICE 04/04/2020 M47.817 Spondylosis without myelopathy or radiculopathy, lumbosacral region Dasha Gotti, PLATE GRAINER APPRENTICE 04/04/2020 M51.37 Other intervertebral disc degene ration, lumbosacral region Dasha Gotti, PLATE GRAINER APPRENTICE 04/04/2020 M51.27 Other intervertebral disc displa cement, lumbosacral region Dasha Gotti, PLATE GRAINER APPRENTICE 04/04/2020 M65.351 Trigger finger, right little fin prabhu Dasha Gotti, PLATE GRAINER APPRENTICE 04/04/2020 G56.21 Lesion of ulnar nerve, right upp er limb Dasha Gotti, PLATE GRAINER APPRENTICE 03/30/2020 M47.817 Spondylosis without myelopathy or radiculopathy, lumbosacral region Danamarie Ortolano, PLATE GRAINER APPRENTICE 03/30/2020 M51.37 Other intervertebral disc degene ration, lumbosacral region Danamarie Ortolano, PLATE GRAINER APPRENTICE 03/30/2020 M51.27 Other intervertebral disc displa cement, lumbosacral region Danamarie Ortolano, PLATE GRAINER APPRENTICE 03/30/2020 M65.351 Trigger finger, right little fin prabhu Danamarie Ortolano, PLATE GRAINER APPRENTICE 03/30/2020 G56.21 Lesion of ulnar nerve, right upp er limb Danamarie Ortolano, PLATE GRAINER APPRENTICE 03/28/2020 M47.817 Spondylosis without myelopathy or radiculopathy, lumbosacral region Russ Lyons P.T. 03/28/2020 M51.37 Other intervertebral disc degene ration, lumbosacral region Russ Lyons P.T. 03/28/2020 M51.27 Other intervertebral disc displa cement, lumbosacral region Russ Lyons P.T. 03/28/2020 M65.351 Trigger finger, right little fin prabhu Russ Lyons P.T. 03/28/2020 G56.21 Lesion of ulnar nerve, right upp er limb Russ MayenAshley Lyons P.T. 03/17/2020 M47.817 Spondylosis without myelopathy or radiculopathy, lumbosacral region Maged M Eva, PA 03/17/2020 M51.37 Other intervertebral disc degene ration, lumbosacral region Maged M Eva, PA 03/17/2020 M51.27 Other intervertebral disc displa cement, lumbosacral region Maged M Eva, PA 02/17/2020 M47.817 Spondylosis without myelopathy or radiculopathy, lumbosacral region Maged M Eva, PA 02/17/2020 M51.37 Other intervertebral disc degene ration, lumbosacral region Maged M Eva, PA 02/17/2020 M51.27 Other intervertebral disc displa cement, lumbosacral region Maged M Eva, PA 02/17/2020 M48.061 Spinal stenosis, lum bar region without neurogenic claudication Maged Viky FEDERICO Velasquez 01/31/2020 M51.27 Other intervertebral disc displa cement, lumbosacral region Joe Ruiz MD 01/31/2020 M48.061 Spinal stenosis, lum bar region without neurogenic claudication Joe Ruiz MD 12/20/2019 M47.817 Spondylosis without myelopathy or radiculopathy, lumbosacral region Maged Velasquez, PA 12/20/2019 M51.27 Other intervertebral disc displa cement, lumbosacral region Maged Viky Eva, PA 12/20/2019 M51.37 Other intervertebral disc degene ration, lumbosacral region Maged M Eva, PA 12/20/2019 M48.061 Spinal stenosis, lum bar region without neurogenic claudication Maged Velasquez, PA 11/19/2019 M51.26 Other intervertebral disc displa cement, lumbar region Joe Ruiz MD 11/19/2019 M48.061 Spinal stenosis, lum bar region without neurogenic claudication Joe Ruiz MD Plan of Treatment 04/28/2020 - Maged Velasquez PA* M47.817 Spondylosis without myelopathy or radiculopathy, lumbosacral region* Follow up:* after inj results with [facility] * M51.37 Other intervertebral disc degeneration, lumbosacral region * M51.27 Other intervertebral disc displacement, lumbosacral region Functional Status Description No Information Available Mental Status Description No Information Available Referrals Refer to Dr Reason for Referral Status Appt Date Joe Ruiz MD [facility]ON INJ'S ([id number], 57258, [phone], [place] [address]88) PER [facility] NO AUTH REQUIRED TO SURGERY NT Created [address] [place], [place] [id number] [phone] Joe Ruiz MD [facility]ON INJ'S (67311, [address], [phone], [address], [place] [address]) NO AUTH REQUIRED TO SURGERY NT Created [address] [place] [address] [phone] Joe Ruiz MD PT EVAL [phone], S PINE AND R HAND, NO AUTH REQD BASED ON [facility]. SENT TO PT DEPT..LD Created [address] [place] [phone] Joe Ruiz MD MRI APPROVED PER [facility] FOR MRI OF LUMBAR SPINE ([id number]) TO [facility]. DG Created [address] [place] [address] [phone]
--- NOTE | 2020-08-04 15:56 | ROOR ---
Patient Name: Claudia Holcomb Procedure Date: 08/04/2020 3:35 PM Date of : 1965 Age: 55 Room: [facility] Gender: Female Note Status: Finalized Procedure: Upper GI endoscopy Indications: Dysphagia, Heartburn, Failure to respond to medical treatment Providers: Ricky SAVAGE MD Referring MD: [facility] Requesting Provider: Medicines: Monitored Anesthesia Care Complications: No immediate complications. Procedure: Pre-Anesthesia Assessment: - The heart rate, respiratory rate, oxygen saturations, blood pressure, adequacy of pulmonary ventilation, and response to care were monitored throughout the procedure. The Endoscope was introduced through the mouth, and advanced to the second part of duodenum. The upper GI endoscopy was accomplished without difficulty. The patient tolerated the procedure well. Findings: Non-severe esophagitis was found at the gastroesophageal junction. Biopsies were taken with a cold forceps for histology. The exam of the esophagus was otherwise normal. The scope was withdrawn. Dilation was performed in the entire esophagus with a Stuart dilator with no resistance at 54 Fr. The entire examined stomach was normal. The examined duodenum was normal. Impression: - Minimal reflux esophagitis. Biopsied. - Normal stomach. - Normal examined duodenum. - Dilation performed in the entire esophagus. Recommendation: - Observe patient's clinical course. - Continue present medications. Procedure Code(s): --- Professional --- 84676, Esophagogastroduodenoscopy, flexible, transoral; with biopsy, single or multiple 46109, Dilation of esophagus, by unguided sound or bougie, single or multiple passes Diagnosis Code(s): --- Professional --- R12, Heartburn R13.10, Dysphagia, unspecified K20.9, Esophagitis, unspecified CPT copyright 2019 [employer]. All rights reserved. The codes documented in this report are preliminary and upon comic book writer review may be revised to meet current compliance requirements. Ricky Savage MD Ricky SAVAGE MD 08/04/2020 3:55:37 PM Electronically signed by Ricky SAVAGE MD Number of Addenda: 0 Note Initiated On: 08/04/2020 3:35 PM Estimated Blood Loss: Estimated blood loss: none.
[2020-08-04 15:57] VITALS: BP 127/79
== END 2020-08-04 16:20 | disposition home or self-care (01) ==
LOC: M OPP 13:05
PROVIDERS: ATTEND Internal Medicine Gastroenterology
DX: K20.90 Esophagitis, unspecified without bleeding (principal); R13.10 Dysphagia, unspecified; R12 Heartburn; Z79.899 Other long term (current) drug therapy; Z91.040 Latex allergy status; Z87.891 Personal history of nicotine dependence
CPT/HCPCS: 43239; 43450; 88305; J3010

== ENCOUNTER → 2020-08-22 | Outpatient (REF) | payer OTHER ==
[~2020-08-22] MED LIST changes: -NS 1,000 ML IV ONE
== END ==
LOC: M SFHCPLAZ 14:01
PROVIDERS: ATTEND Family Medicine
DX: R32 Unspecified urinary incontinence (principal); M54.41 Lumbago with sciatica, right side

== ENCOUNTER → 2020-09-07 | Outpatient (CLI) | payer OTHER ==
--- NOTE | 2020-09-07 10:23 | REP ---
INDICATION: INTERMITTENT URINARY INCONTINENCE COMPARISON: None TECHNIQUE: Real time B-mode ultrasound examination using curved array transducer. FINDINGS: Bladder is normal in appearance without wall thickening or mass lesion. Bilateral ureteral jets are identified. Prevoid bladder measures 7.0 x 7.4 x 6.4 cm (216 cc). Postvoid bladder measures 6.0 x 6.5 x 5.4 cm (138 cc). Postvoid residual: 64% IMPRESSION: 1. Normal appearance of the bladder without mass lesion. 2. Markedly increased irregular postvoid residual volume of uncertain etiology. <Electronically signed by Cm Negrete > 09/07/20 1029
== END ==
LOC: M RAD 09:39
PROVIDERS: ATTEND Student in an Organized Health Care Education/Training Program
DX: R32 Unspecified urinary incontinence (principal)

== ENCOUNTER → 2020-09-12 | Outpatient (CLI) | payer OTHER ==
--- NOTE | 2020-09-12 10:23 | REP ---
INDICATION: OVERFLOW INCONTINENCE OF URINE. COMPARISON: MR lumbar spine 07/26/2020 TECHNIQUE: Sagittal T1, T2, stir images obtained. Axial T1 and T2 weighted images obtained. FINDINGS: There is uxfs-mh-aytshkic multilevel degenerative disc disease with loss of disc height and disc desiccation more notable at the L5-S1 level. Vertebral heights are overall preserved. No dipika malalignments. Conus ends normally L1 level. On the stir images, no significant STIR signal abnormality to suggest soft tissue or ligamentous injury. On the review of axial images, At L1-2 no significant canal or foraminal narrowing. At L2-3 disc bulge with mild canal narrowing and mild bilateral foraminal narrowing. At L3-4 no significant canal or foraminal narrowing At L4-5 disc bulge with mild canal narrowing and pwvx-gi-yzfifevu bilateral foraminal narrowing. At L5-S1 loss of disc height with mild canal narrowing and vwgx-dc-nnxvxhzi bilateral foraminal narrowing. IMPRESSION: 1. Xgat-rm-rrsxgcib multilevel degenerative disc disease, slightly more progressed at the L5-S1 level. 2. No definite limiting canal or foraminal stenosis or focal disc herniation. 3. No significant changes from the comparison study of 2 months previous. <Electronically signed by Juan R Moffett > 09/12/20 1027
== END ==
LOC: M PLARAD 08:37
PROVIDERS: ATTEND Student in an Organized Health Care Education/Training Program
DX: N39.490 Overflow incontinence (principal)

== ENCOUNTER → 2020-09-18 | Outpatient (REF) | payer OTHER | LOC: M SFHCPLAZ 15:17 | PROVIDERS: ATTEND Family Medicine | DX: E78.5 Hyperlipidemia, unspecified (principal); Z53.9 Procedure and treatment not carried out, unspecified reason ==

== ENCOUNTER → 2020-09-19 | Outpatient (CLI) | payer OTHER ==
--- NOTE | 2020-09-19 12:31 | REPMRS ---
Patient History The patient states she had a clinical breast exam in 03/28 Family history of breast cancer at age 45 in mother, colorectal cancer under age 50 in maternal uncle. 3D TOMOSYNTHESIS WAS PERFORMED. The Harvinder Dominguez lifetime risk for breast cancer is 13.9%. Volpara breast density b. Digital Woman Screen Mammo: September 19, 2020 - Exam #: [id number] Bilateral CC and MLO view(s) were taken. Technologist: Mandie Grimaldo, Technologist Prior study comparison: March 11, 2019, bilateral digital woman screen mammo performed at [facility]. September 29, 2017, digital woman screen mammo performed at [facility]. FINDINGS: There are scattered fibroglandular densities. There has been no change in the appearance of the mammogram from the prior studies. There is a mild amount of residual fibroglandular tissue which is fairly symmetric. There is no interval development of dominant mass, architectural distortion, or clustered microcalcification suggestive of malignancy. Assessment: BI-RADS/ACR category 1 mammogram. Negative Mammogram. Recommendation Routine screening mammogram in 1 year (for women over age 40). This mammogram was interpreted with the aid of an FDA-approved computer-aided dectection system. Electronically Signed By: Shawn Childs MD 09/19/20 8052
== END ==
LOC: M WHC 11:08
PROVIDERS: ATTEND Student in an Organized Health Care Education/Training Program
DX: Z12.31 Encounter for screening mammogram for malignant neoplasm of breast (principal); Z80.3 Family history of malignant neoplasm of breast; Z80.0 Family history of malignant neoplasm of digestive organs

== ENCOUNTER → 2020-09-22 | Outpatient (CLI) | payer OTHER ==
[2020-09-22 15:57] LABS: HEMOGLOBIN A1c 5.6 %
[2020-09-22 16:00] LABS: CHOLESTEROL RISK RATIO 7.896 (<5)
== END ==
LOC: M LAB 14:05
PROVIDERS: ATTEND Student in an Organized Health Care Education/Training Program
DX: E78.5 Hyperlipidemia, unspecified (principal); Z68.33 Body mass index [BMI] 33.0-33.9, adult

== ENCOUNTER → 2020-10-02 | Outpatient (REF) | payer OTHER ==
[2020-10-02 18:44] LABS: APPEARANCE, URINE HAZY (CLEAR); BACTERIA, URINE AUTO NEGATIVE (NEGATIVE); BILIRUBIN, URINE AUTO NEGATIVE (NEGATIVE); BLOOD, URINE BLOOD NEGATIVE (NEGATIVE); COLOR, URINE YELLOW (YELLOW); GLUCOSE, URINE (UA) AUTO NEGATIVE (NEGATIVE); KETONE, URINE AUTO NEGATIVE (NEGATIVE); LEUKOCYTE ESTERASE, URINE AUTO NEGATIVE (NEGATIVE); MUCUS, URINE SMALL (NEGATIVE); NITRITE, URINE AUTO NEGATIVE (NEGATIVE); PROTEIN, URINE AUTO NEGATIVE (NEGATIVE); RBC, URINE AUTO 0 /HPF (0-3); SPECIFIC GRAVITY URINE AUTO 1.018 (1.002-1.035); SQUAMOUS EPITHELIAL CELL UR AU 1 /HPF (0-6); UROBILINOGEN, URINE AUTO 0.2 mg/dL (0.0-2.0); WBC, URINE AUTO 1 /HPF (0-3)
== END ==
LOC: M SMT 16:45
PROVIDERS: ATTEND Nurse Practitioner Family
DX: R32 Unspecified urinary incontinence (principal)

== ENCOUNTER → 2020-10-05 | Outpatient (REF) | payer OTHER | LOC: M SMT 15:04 | PROVIDERS: ATTEND Nurse Practitioner Family | DX: R32 Unspecified urinary incontinence (principal) ==

== ENCOUNTER → 2020-10-17 | Outpatient (REF) | payer OTHER ==
[2020-10-17 15:20] LABS: BLOOD UREA NITROGEN 16 MG/DL (7-18); CARBON DIOXIDE LEVEL 31 MEQ/L (21-32); CHLORIDE LEVEL 108 MEQ/L (98-107); GLOMERULAR FILTRATION RATE > 60.0 (>51); GLUCOSE, FASTING 91 MG/DL (70-100); POTASSIUM SERUM 4.3 MEQ/L (3.5-5.1); SODIUM LEVEL 141 MEQ/L (136-145)
== END ==
LOC: M SFHCPLAZ 10:55
PROVIDERS: ATTEND Family Medicine
DX: Z01.818 Encounter for other preprocedural examination (principal); M65.30 Trigger finger, unspecified finger

== ENCOUNTER → 2020-10-26 | Outpatient (CLI) | payer OTHER ==
--- NOTE | 2020-10-27 06:29 | REP ---
INDICATION: PERSONAL HX OF NICOTINE DEPENDENCE COMPARISON: 10/13/2019 TECHNIQUE: Axial noncontrast images from the thoracic inlet to the upper abdomen using low-dose lung screening technique (LDCT). FINDINGS: Bilateral lung butts are well aerated and demonstrate chronic appearing interstitial changes. Small focus of ground-glass opacity in the left lower lung zone adjacent to the major fissure is nonspecific.. No consolidation, suspicious nodule or mass lesion. No pleural effusion or pneumothorax. Tracheobronchial tree is patent. Mediastinum demonstrates mild atherosclerotic changes to the thoracic aorta and coronary arteries. IMPRESSION: Lung-RADS category 2. Management recommendations include annual low-dose CT surveillance. <Electronically signed by Cm Negrete > 10/27/20 8812
== END ==
LOC: M RAD 10:06
PROVIDERS: ATTEND Physician Assistant
DX: Z12.2 Encounter for screening for malignant neoplasm of respiratory organs (principal); Z87.891 Personal history of nicotine dependence; I70.0 Atherosclerosis of aorta; I25.10 Atherosclerotic heart disease of native coronary artery without angina pectoris; R91.8 Other nonspecific abnormal finding of lung field

== ENCOUNTER → 2020-11-15 | Outpatient (REF) | payer OTHER | LOC: M SFHCWAGY 13:13 | PROVIDERS: ATTEND Nurse Practitioner Women's Health | DX: R87.610 Atypical squamous cells of undetermined significance on cytologic smear of cervix (ASC-US) (principal); Z12.4 Encounter for screening for malignant neoplasm of cervix ==

== ENCOUNTER → 2020-12-06 | Outpatient (CLI) | payer OTHER ==
[~2020-12-06] MED LIST changes: +OMEP40CA4 PO; -OMEP40CA97 PO
--- NOTE | 2020-12-06 15:34 | REP ---
INDICATION: LLQ PAIN/CYST OF LEFT OVARY/410.21/N83.202 COMPARISON: 10/19/2019 TECHNIQUE: Transabdominal pelvic ultrasound followed by transvaginal examination for better evaluation of the endometrium and adnexa with color Doppler evaluation of the ovaries. FINDINGS: Bladder is unremarkable and measures 6.0 x 4.2 x 4.0 cm. Normal anteverted uterus measures 7.0 x 3.6 x 5.0 cm. The endometrial complex measures 5 mm thickness. No discrete uterine or endometrial abnormalities are appreciated. Ovaries were not visualized on either transabdominal or transvaginal imaging. No pelvic fluid or adnexal mass lesion. IMPRESSION: Normal appearance to the uterus. Ovaries not visualized. <Electronically signed by Cm Negrete > 12/06/20 5722
== END ==
LOC: M WHC 14:59
PROVIDERS: ATTEND Nurse Practitioner Women's Health
DX: R10.32 Left lower quadrant pain (principal); N83.202 Unspecified ovarian cyst, left side

== ENCOUNTER 2020-12-28 19:07 | Inpatient (IN) | payer OTHER ==
[~2020-12-28] VITALS: Ht 167.6 cm; Wt 95.6 kg
[2020-12-28] MEDS ORDERED: CIPR750T2 PO (19:15)
[2020-12-28] MEDS ORDERED: KETOROLAC 30 MG/ML 1ML VIAL IV ONE (20:05)
[2020-12-28] MEDS ORDERED: cefTRIAXone SOD 1 GM in D5W MINI-BAG PLUS 50 ML IV ONE ×2 (20:05→21:05)
[2020-12-28 20:35] LABS: BASO # 0.1 10^3/uL (0.0-0.2); BASO % 0.7 % (0.0-1.0); EOS # 0.1 10^3/uL (0.0-0.5); EOS % 1.4 % (0.0-3.0); HEMATOCRIT 42.7 % (36.0-47.0); HEMOGLOBIN 14.6 g/dl (12.0-15.5); LYMPH # 2.1 10^3/uL (1.5-5.0); LYMPH % 24.6 % (24.0-44.0); MEAN CORPUSCULAR HEMOGLOBIN 30.9 pg (27.0-33.0); MEAN CORPUSCULAR HGB CONC 34.2 g/dl (32.0-36.5); MEAN CORPUSCULAR VOLUME 90.3 fl (80.0-96.0); MONO # 0.4 10^3/uL (0.0-0.8); MONO % 4.8 % (2.0-8.0); NEUTROPHILS # 5.7 10^3/uL (1.5-8.5); PLATELET COUNT, AUTOMATED 192 10^3/uL (150-450); RED BLOOD COUNT 4.73 10^6/uL (4.00-5.40); WHITE BLOOD COUNT 8.3 10^3/uL (4.0-10.0)
--- NOTE | 2020-12-28 20:52 | REPVR ---
PROCEDURE INFORMATION: Exam: CT Maxillofacial Without Contrast Exam date and time: 12/28/2020 8:09 PM Age: 55 years old Clinical indication: Other: Left hearing problem; Additional info: R/O mastoiditis left TECHNIQUE: Imaging protocol: Computed tomography images of the face without contrast. Radiation optimization: All CT scans at this facility use at least one of these dose optimization techniques: automated exposure control; mA and/or kV adjustment per patient size (includes targeted exams where dose is matched to clinical indication); or iterative reconstruction. COMPARISON: CT Maxilofacial w/out contrast 07/01/2017 1:53 PM FINDINGS: Orbital cavity: Orbits are normal. Globes are unremarkable. Bones/joints: No acute fracture. Paranasal sinuses: Inflammatory changes right maxillary sinus, right and left sphenoid sinuses and mild septal thickening in the ethmoid sinuses. Status post left maxillary antrostomy. Mastoid air cells: There are partially opacified air cells in the tip of the left mastoid sinus consistent with mild mastoiditis. Auditory system: There is irregular fluid/soft tissue density demonstrated in the left middle ear cavity without evidence of ossicular destruction or displacement. The scutum is intact. Finding likely represents chronic otitis media. There is no CT evidence for cholesteatoma although cholesteatoma is not excluded. Soft tissues: Unremarkable. IMPRESSION: 1. Inflammatory changes right maxillary sinus, right and left sphenoid sinuses and mild septal thickening in the ethmoid sinuses. 2. There is irregular fluid/soft tissue density demonstrated in the left middle ear cavity without evidence of ossicular destruction or displacement. The scutum is intact. Finding likely represents chronic otitis media. There is no CT evidence for cholesteatoma although cholesteatoma is not excluded. 3. There are partially opacified air cells in the tip of the left mastoid sinus consistent with mild mastoiditis. Electronically signed by: Slava Ross On 12/28/2020 20:51:52 PM
[2020-12-28 20:53] LABS: ERYTHROCYTE SEDIMENTATION RATE 41 mm/hr (0-30)
[2020-12-28] MEDS ORDERED: MORPHINE 4 MG/ML 1ML VIAL/SYRINGE (J2270) IV ONE (21:20)
[2020-12-28] MEDS ORDERED: CIPROFLOXACIN 400 MG in IV 1 EA IV ONE ×4 (21:20)
[2020-12-28] MEDS ORDERED: NS 1,000 ML IV ONE (22:00)
[2020-12-28] MEDS ORDERED: NALOXONE INJ 0.4MG/1ML VIAL (J2310 PER 1MG) IV PRN (22:00)
[2020-12-28] MEDS ORDERED: MORPHINE 4 MG/ML 1ML VIAL/SYRINGE (J2270) IV PRN (22:00)
[2020-12-28] MEDS ORDERED: PERCOCET 5MG/325MG TAB PO PRN (22:00)
[2020-12-28] MEDS: ONDANSETRON 4MG/2ML VIAL IV PRN (23:55)
[2020-12-29] MEDS ORDERED: ASPI-161 PO (00:08)
[2020-12-29] MEDS ORDERED: ACET300T47 PO (00:08)
[2020-12-29] MEDS ORDERED: FLUT1INH3 INH (00:08)
[2020-12-29] MEDS ORDERED: ALBUTEROL 90 MCG/ACT 8GM HFA INHALER INH PRN (01:00)
[2020-12-29] MEDS ORDERED: ALBUTEROL SULFATE 2.5 MG/0.5 ML INH NEB SOLN INH PRN (01:00)
--- NOTE | 2020-12-29 01:32 | HPEPDOC ---
[facility] Medical History & Physical Date of Admission Dec 28, 2020 Date of Service: Dec 28, 2020 History and Physical CHIEF COMPLAINT: "My left ear felt clogged." Left ear pain redness and swelling for 2 days HISTORY OF PRESENT ILLNESS: 55-year-old female was in her usual state of health until 2 days ago when she noted that the inside of her left ear felt sore and clogged which worsened over the next 24 hours. She had low-grade temperatures around 99.9 at home and was having much more trouble opening her mouth and eating with worsening swelling and redness in front of and behind her left ear. She had throbbing pain lasting for many hours with decreased appetite, unable to eat because it hurts when she opens her mouth to try to chew. she was seen by her nurse practitioner, diagnosed with left otitis media, and was treated with ciprofloxacin 750 mg daily. She presents to the emergency room for further evaluation was found to have chronic left otitis media and acute left mastoiditis. Patient was afebrile with normal white blood cell count but elevated ESR and CRP hospitalist was asked to admit the patient for IV antibiotics. ENT surgeon Dr. Savage was consulted and we will see the patient in the morning. She received IV ceftriaxone and IV ciprofloxacin and minor treatment. Patient was started on intravenous meropenem for Pseudomonas coverage. PAST MEDICAL HISTORY: asthma hypercholesterolemia gastroesophageal reflux disease pancreatitis nonsevere esophagitis status post esophageal dilation cervical spine degenerative disc disease bilateral chronic low back pain generalized anxiety disorder posterior vitreous detachment vitreous hemorrhage emphysema fecal incontinence chronic otitis media PAST SURGICAL HISTORY: left maxillary antrostomy x2 reversal tubal ligation 2001 exploratory surgeries cyst 2002 sinus reduction rhinoplasty 2018 colposcopy 2019 right trigger finger and nerve release 2019 EGD with dilation due to esophagitis left carpal tunnel release 2020 right carpal tunnel release right trigger finger release October 2020 SOCIAL HISTORY: Quit smoking smoked for about 24 years One fourth to a half a pack of cigarettes every 4 days 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 REVIEW OF SYSTEMS: 10 point review of systems negative aside from positive findings in HPI HOME MEDICATIONS: Please see below. PHYSICAL EXAMINATION: VITAL SIGNS: See below GENERAL APPEARANCE: Awake alert oriented to person place and time no cyanosis no distress HEENT: Face is symmetric tongue is midline pupils round and reactive to light accommodation Left ear erythematous bulging tympanic membrane swollen pinna erythema along the left side of the face CARDIOVASCULAR: S1-S2 regular rate rhythm no murmurs rubs or gallops LUNGS: Air entry is equal bilaterally clear to auscultation no adventitious breath sounds ABDOMEN: Soft nontender nondistended positive bowel sounds x4 quadrants. EXTREMITIES: No cyanosis or clubbing no pitting edema LABORATORY DATA: See below. IMAGING: See below MICROBIOLOGY: Please see below. ASSESSMENT: 55-year-old female with 2-day history of worsening left ear congestion pain redness treated for acute otitis media as outpatient presents to the ER With persistent symptoms found to have acute left mastoiditis in the setting of chronic otitis media. Acute left mastoiditis/chronic otitis media -For Pseudomonas coverage patient has been started on intravenous meropenem 500 mg IV every 8 hourly. -For pain control IV Toradol and Percocet as needed -ENT consulted asthma -Compensated -Resume as needed bronchodilators hypercholesterolemia -Check lipid profile gastroesophageal reflux disease -On Protonix twice daily h/o pancreatitis h/o nonsevere esophagitis status post esophageal dilation cervical spine degenerative disc disease bilateral chronic low back pain generalized anxiety disorder h/o posterior vitreous detachment /vitreous hemorrhage emphysema h/o fecal incontinence Vital Signs Vital Signs Date Time Temp Pulse Resp B/P (MAP) Pulse Ox O2 Delivery O2 Flow Rate FiO2 12/28/20 23:56 18 12/28/20 21:58 98 12/28/20 19:23 12/28/20 19:07 96.5 90 Room Air Laboratory Data Labs 24H Laboratory Tests 2 12/28/20 20:22: Immature Granulocyte % (Auto) 0.5, Neutrophils (%) (Auto) 68.0H, Lymphocytes (%) (Auto) 24.6, Monocytes (%) (Auto) 4.8, Eosinophils (%) (Auto) 1.4, Basophils (%) (Auto) 0.7, Neutrophils # (Auto) 5.7, Lymphocytes # (Auto) 2.1, Monocytes # (Auto) 0.4, Eosinophils # (Auto) 0.1, Basophils # (Auto) 0.1, Nucleated Red Blood Cells % (auto) 0.0, Erythrocyte Sedimentation Rate 41H, C-Reactive Protein, Quantitative 5.09H 12/28/20 20:27: POC Glucose (Misc Panel) 97, POC Sodium (Misc Panel) 141, POC Potassium (Misc Panel) 4.1, POC Chloride (Misc Panel) 102, POC Total CO2 (Misc Panel) 24.0, POC Blood Urea Nitrogen (Misc Panel 10, POC Ionized Calcium (Misc Panel) 4.9, POC Creatinine (Misc Panel) 0.9, POC Hematocrit (Misc Panel) 43.0 12/28/20 21:37: Coronavirus (COVID-19)(PCR) NEGATIVE CBC/BMP Laboratory Tests 12/28/20 20:22 Microbiology Microbiology 12/28/20 Gram Stain, Received Pending 12/28/20 Wound Culture, Received Pending 12/28/20 Blood Culture, Received Pending 12/28/20 Blood Culture, Received Pending Home Medications Scheduled Aspirin (Aspirin EC) 81 Mg Tablet.dr, 81 MG PO DAILY Ciprofloxacin HCl (Ciprofloxacin HCl) 750 Mg Tablet, 750 MG PO BID STARTED ON 12/27/20 Fluticasone Propion/Salmeterol (Fluticasone-Salmeterol 232-14) 1 Each Aer.pow.ba, 1 PUFF INH BID Multivitamins (Thera M Plus Tablet) 1 Each Tablet, 1 TAB PO DAILY [place]-3 Fatty Acids/Fish Oil (Fish Oil 1,000 mg Capsule) 1 Each Capsule, 1,000 MG PO DAILY Pantoprazole Sodium (Pantoprazole Sodium) 40 Mg Tablet.dr, 40 MG PO BID Scheduled PRN Acetaminophen with Codeine (Acetaminophen-Cod #3 Tablet) 1 Each Tablet, 1 TAB PO QHS PRN for MODERATE PAIN (PS 5-7) Albuterol Sulf (Albuterol Sulfate) 2.5 Mg/3 Ml Nebu, 2.5 MG INH Q6H PRN for SHORTNESS OF BREATH Albuterol Sulfate (Proair Hfa) 108 Mcg/Act Aer, 2 PUFF INH QID PRN for SHORTNESS OF BREATH Allergies Coded Allergies: latex (Verified Allergy, Intermediate, rash, 07/28/20) SEASONAL ALLERGIES (Verified Allergy, Unknown, 07/28/20) A-FIB/CHADSVASC A-FIB History Current/History of A-Fib/PAF?: No Current PO Anticoag Therapy: No Age/Risk Factor Scoring CHADSVASC: CHADSVASC Response (Comments) Value Age Risk Factor Age < 65 years old 0 Gender Risk Factor Female 1 Hx of CHF No 0 Hx of HTN No 0 Hx of Stroke/TIA/or VTE No 0 Hx of Diabetes No 0 Hx of Vascular Disease No 0 Total 1 Treatment Treatment ordered: NONE GRACIELA PERRY MD Dec 29, 2020 00:56
[2020-12-29] MEDS: NS 1,000 ML IV SCH ×4 (01:39→21:11)
[2020-12-29] MEDS: KETOROLAC 30 MG/ML 1ML VIAL IV SCH ×4 (01:40→19:39)
[2020-12-29] MEDS: PERCOCET 5MG/325MG TAB PO PRN ×2 (02:45→21:09)
[2020-12-29] MEDS: MEROPENEM INJ 500 MG in IV 1 EA IV SCH ×3 (03:08→18:36)
[2020-12-29] MEDS: ASPIRIN 81MG ENTERIC TABLET PO SCH (08:39)
[2020-12-29] MEDS: LACTOBACILLUS ACIDOPHILUS CAP (BACID) PO SCH ×4 (08:39→21:09)
[2020-12-29] MEDS: MULTIVITAMINS/MINERALS THERAP 1 TAB PO SCH (08:39)
[2020-12-29 10:45] VITALS: BP 120/73
[2020-12-29] MEDS: CIPRODEX OTIC SUSP 7.5ML AS SCH ×2 (13:51→21:09)
[2020-12-29 14:00] VITALS: BP 118/72
[2020-12-29] MEDS: ONDANSETRON 4MG/2ML VIAL IV PRN (16:07)
--- NOTE | 2020-12-29 17:28 | IPNPDOC ---
Text Note Date of Service The patient was seen on 12/29/20. NOTE Subjective: 55-year-old female who noted that her left ear felt very sore and clogged which worsened over the next 24 hours. Patient was admitted to the hospital for IV antibiotics. Patient has been having some difficulty. Dr. Savage saw the patient today and put in an ear wick as well as started the patient on Ciprodex drops to treat the otitis externa. Patient says she feels sick but is doing better today. Review of systems: General: Patient denies fevers HEENT: Patient denies headaches Cardiovascular: Patient denies chest pain Respiratory: Patient denies shortness of breath, cough GI: Patient denies abdominal pain, nausea, vomiting, diarrhea : Patient denies increased frequency or pain with urination Extremities: Patient denies swelling or pain in extremities Neurological: Patient denies numbness or tingling in legs Physical exam: Vitals: See below General: Alert and oriented female who was laying in bed when I walked in the room. Patient did not appear to be in any acute distress. HEENT: Normocephalic, atraumatic, moist mucous membranes, right tympanic membrane pearly jaimes without erythema, left tympanic membrane was obscured by swelling and edema in the left external auditory canal. Neck: No lymphadenopathy or thyromegaly Cardiac: Regular rate and rhythm, no murmurs, normal S1, normal S2 Pulm: End expiratory wheezing heard throughout the lung butts Abd: Nondistended, nontender to palpation, normal bowel sounds Ext: No edema bilateral lower extremities Labs: See below Imaging: No new imaging has been performed Assessment/plan: 55-year-old female who was admitted for left ear congestion for acute mastoiditis/otitis media 1. Acute left mastoiditis/otitis media/otitis externa. Was started on IV meropenem. Patient was also placed on Ciprodex. Dr. Savage saw the patient today and I appreciate his help following up with the patient. Patient will need to follow-up with Dr. Savage in the office in 10 to 14 days for the ear wic k to be removed. Ciprodex drops should be continued for 10 days after discharge. 2. Asthma. Patient appears compensated and is not short of breath although she is wheezing today. We will resume her inhalers. 3. Hypercholesterolemia. We will check her liver profile. 4. GERD. On Protonix twice daily DVT Prophylaxis: Teds and sequentials Disposition: Pending clinical improvement, possible discharge tomorrow VS,Kevin, I+O VS, Kevin, I+O Laboratory Tests 12/28/20 20:22 Vital Signs Date Time Temp Pulse Resp B/P (MAP) Pulse Ox O2 Delivery O2 Flow Rate FiO2 12/29/20 14:00 98.1 62 18 118/72 (87) 95 Room Air I&O- Last 24 Hours up to 6 AM 12/29/20 06:00 Intake Total 300 ml Balance 300 ml MIKE QUIJANO DO Dec 29, 2020 17:28
[2020-12-29 20:00] VITALS: BP 127/72
[2020-12-29] MEDS ORDERED: cefTRIAXone SOD 2 GM in D5W MINI-BAG PLUS 50 ML IV SCH (20:00)
[2020-12-29] MEDS: PANTOPRAZOLE 40MG TAB (PROTONIX) PO SCH (21:09)
[2020-12-30] MEDS: PERCOCET 5MG/325MG TAB PO PRN (01:23)
[2020-12-30] MEDS: KETOROLAC 30 MG/ML 1ML VIAL IV SCH ×2 (02:08→08:57)
[2020-12-30] MEDS: MEROPENEM INJ 500 MG in IV 1 EA IV SCH (02:08)
[2020-12-30 06:00] VITALS: BP 127/55
[2020-12-30 06:42] LABS: HEMATOCRIT 35.9 % (36.0-47.0); HEMOGLOBIN 11.9 g/dl (12.0-15.5); MEAN CORPUSCULAR HEMOGLOBIN 30.5 pg (27.0-33.0); MEAN CORPUSCULAR HGB CONC 33.1 g/dl (32.0-36.5); MEAN CORPUSCULAR VOLUME 92.1 fl (80.0-96.0); PLATELET COUNT, AUTOMATED 148 10^3/uL (150-450); WHITE BLOOD COUNT 4.5 10^3/uL (4.0-10.0)
[2020-12-30 06:56] LABS: BLOOD UREA NITROGEN 12 MG/DL (7-18); CALCIUM LEVEL 7.7 MG/DL (8.5-10.1); CARBON DIOXIDE LEVEL 26 MEQ/L (21-32); CHLORIDE LEVEL 114 MEQ/L (98-107); CREATININE FOR GFR 0.66 MG/DL (0.55-1.30); GLOMERULAR FILTRATION RATE > 60.0 (>51); GLUCOSE, FASTING 94 MG/DL (70-100); POTASSIUM SERUM 4.3 MEQ/L (3.5-5.1); SODIUM LEVEL 144 MEQ/L (136-145)
[2020-12-30] MEDS: NS 1,000 ML IV SCH (07:32)
[2020-12-30] MEDS: PANTOPRAZOLE 40MG TAB (PROTONIX) PO SCH (08:57)
[2020-12-30] MEDS: LACTOBACILLUS ACIDOPHILUS CAP (BACID) PO SCH (08:57)
[2020-12-30] MEDS: CIPRODEX OTIC SUSP 7.5ML AS SCH (08:57)
[2020-12-30] MEDS: ASPIRIN 81MG ENTERIC TABLET PO SCH (08:57)
[2020-12-30] MEDS: MULTIVITAMINS/MINERALS THERAP 1 TAB PO SCH (08:57)
[2020-12-30] MEDS ORDERED: CIPR7.5D2 AS (09:27)
[2020-12-30] MEDS ORDERED: LEVO500T3 PO (09:27)
[2020-12-30] MEDS ORDERED: NEOM1SOL19 OTIC (10:23)
--- NOTE | 2020-12-30 16:00 | DS.PDOC ---
Discharge Summary General Date of Admission Dec 28, 2020 at 19:08 Date of Discharge 12/30/2020 Primary Care Physician: Hardy Lepe MD Attending Physician: MIKE QUIJANO DO Specialist/Consultants Involve: DANIEL SAVAGE MD Discharge Summary PROCEDURES PERFORMED DURING STAY: None. ADMITTING DIAGNOSES: 1. Acute left mastoiditis/chronic otitis media. 2. Asthma 3. Hypercholesterolemia 4. History of gastric esophageal reflux disease 5. History of pancreatitis 6. Cervical spine degenerative disc disease 7. Generalized anxiety disorder 8. Emphysema DISCHARGE DIAGNOSES: 1. Acute left mastoiditis/otitis media/otitis externa. 2. Asthma 3. Hypercholesterolemia 4. History of gastric esophageal reflux disease 5. History of pancreatitis 6. Cervical spine degenerative disc disease 7. Generalized anxiety disorder 8. Emphysema COMPLICATIONS/CHIEF COMPLAINT: Left Ear Pain. HISTORY OF PRESENT ILLNESS: Patient is a 55-year-old female who was in her usual state of health until 2 days ago when she noted the inside of her left ear felt sore and clogged which worsened over the next 24 hours. Patient had a low-grade temperature around 99.9 at home and was having much more trouble opening her mouth and eating well worsening swelling and redness in the front and behind her ear. She had throbbing pain lasting for many hours decreased appetite. She is unable to eat hurts. Patient was seen by nurse practitioner diagnosed with left otitis media was treated with ciprofloxacin 750 mg daily. Patient reported to the emergency department further evaluation found to have chronic left otitis media with mastoiditis. Patient was afebrile with a normal white blood cell count but had an elevated ESR and CRP. Hospitalist was asked to admit the patient for IV antibiotics. Patient was switched to IV meropenem for pseudomonal coverage. HOSPITAL COURSE: Patient was still feeling ill on the first day of her hospitalization. Patient was continue IV meropenem. Dr. Savage of ENT saw the patient and put an ear wick in. Patient was also believed to have otitis externa and was started on Ciprodex. On 12/30/2020, patient was feeling much better. Patient was ready to go home. We are unable to send Ciprodex as her insurance would not cover it so we switched her over to neomycin/polymyxin/hydrocortisone drops. Patient will take these for the next 10 days. Patient will continue take Levaquin for the next 10 days as well. Patient was discharged home with follow-up with ENT in the next 1 week. DISCHARGE MEDICATIONS: Please see below. ALLERGIES: Please see below. PHYSICAL EXAMINATION ON DISCHARGE: VITAL SIGNS: Please see below. General: Alert and oriented female who was laying in bed when I walked in. Patient not appear to be in any acute distress. HEENT: Normocephalic, atraumatic, moist mucous membranes, right tympanic membrane pearly jaimes without erythema, left tympanic membrane is secured by ear wick with swelling and edema in the external auditory canal of the left ear. Neck: No lymphadenopathy or thyromegaly Cardiac: Regular rate and rhythm, no murmurs, normal S1, normal S2 Pulm: Clear to auscultation bilaterally. No wheezes, rhonchi, rales Abd: Nondistended, nontender to palpation, normal bowel sounds Ext: No edema bilateral lower extremities LABORATORY DATA: Please see below. IMAGING: Maxillofacial CT without contrast performed on 12/28/2020 was reported to show inflammatory changes right maxillary sinus, right and left sphenoid sinus and mild septal thickening of the ethmoid sinus. There is irregular fluid/soft tissue density demonstrated in the left middle ear cavity without evidence of ossicular destruction or displacement. This scutum is intact. Findings likely represent chronic otitis media. There is no CT evidence of cholesteatoma although cholesteatoma is not excluded. There are partially opacified air cells in the tip of the left mastoid sinus consistent with mild ma stoiditis PROGNOSIS: Good ACTIVITY: As tolerated. DIET: Regular DISCHARGE PLAN: Discharge home DISPOSITION: 01 Home, Self-Care. DISCHARGE INSTRUCTIONS: 1. Follow-up with your primary care provider within 5 to 7 days of discharge. 2. Follow-up with ENT within 7 to 10 days of discharge. 3. Continue eardrops for the next 10 days as well as Levaquin for the next 10 days. Do not take ciprofloxacin. 4. Return to the emergency department if your symptoms worsen ITEMS TO FOLLOWUP ON ON OUTPATIENT: 1. Removal of earwick. DISCHARGE CONDITION: Stable. TIME SPENT ON DISCHARGE: 35 minutes. Vital Signs/I&Os Vital Signs Date Time Temp Pulse Resp B/P (MAP) Pulse Ox O2 Delivery O2 Flow Rate FiO2 12/30/20 06:00 97.9 57 18 127/55 (79) 90 Room Air I&O- Last 24 Hours up to 6 AM 7/24/21 06:00 Intake Total 4070 ml Output Total 1000 ml Balance 3070 ml Laboratory Data Labs 24H Laboratory Tests 2 12/30/20 06:02: Nucleated Red Blood Cells % (auto) 0.0, Anion Gap 4L, Glomerular Filtration Rate > 60.0, Calcium Level 7.7L CBC/BMP Laboratory Tests 12/30/20 06:02 Microbiology Microbiology 12/28/20 Gram Stain - Final, Complete 12/28/20 Wound Culture - Final, Complete 12/28/20 Blood Culture - Preliminary, Resulted No growth after 24 hours . All specim... 12/28/20 Blood Culture - Preliminary, Resulted No growth after 24 hours . All specim... Discharge Medications Scheduled Aspirin (Aspirin EC) 81 Mg Tablet.dr, 81 MG PO DAILY, (Reported) Fluticasone Propion/Salmeterol (Fluticasone-Salmeterol 232-14) 1 Each Aer.pow.ba, 1 PUFF INH BID, (Reported) Levofloxacin (Levofloxacin) 500 Mg Tablet, 1 TAB PO DAILY Multivitamins (Thera M Plus Tablet) 1 Each Tablet, 1 TAB PO DAILY, (Reported) Neomycin/Polymyxin B/Hydrocort (S[place]eth-Yvynuuneu-Sw Ear Soln) 10 Ml Solution, 4 DROP OTIC QID Drop 4 drops in left ear 4 times a day for 10 days Solomon-3 Fatty Acids/Fish Oil (Fish Oil 1,000 mg Capsule) 1 Each Capsule, 1,000 MG PO DAILY, (Reported) Pantoprazole Sodium (Pantoprazole Sodium) 40 Mg Tablet.dr, 40 MG PO BID, (Reported) Scheduled PRN Acetaminophen with Codeine (Acetaminophen-Cod #3 Tablet) 1 Each Tablet, 1 TAB PO QHS PRN for MODERATE PAIN (PS 5-7), (Reported) Albuterol Sulf (Albuterol Sulfate) 2.5 Mg/3 Ml Nebu, 2.5 MG INH Q6H PRN for SHORTNESS OF BREATH, (Reported) Albuterol Sulfate (Proair Hfa) 108 Mcg/Act Aer, 2 PUFF INH QID PRN for SHORTNESS OF BREATH, (Reported) Allergies Coded Allergies: latex (Verified Allergy, Intermediate, rash, 07/28/20) SEASONAL ALLERGIES (Verified Allergy, Unknown, 07/28/20) MIKE QUIJANO DO Dec 30, 2020 16:00
== END 2020-12-30 10:49 | disposition home or self-care (01) | DRG 113 ==
LOC: M ED 19:07 → M ED INP 19:08 → ENRESERVDT 12-29 10:20 → ENRESERVTM 12-29 10:20 → M MSPAV 12-29 10:45
PROVIDERS: ADMIT General Practice; ATTEND Family Medicine
DX: H70.002 Acute mastoiditis without complications, left ear (principal); J43.9 Emphysema, unspecified; F41.1 Generalized anxiety disorder; J45.909 Unspecified asthma, uncomplicated; E78.00 Pure hypercholesterolemia, unspecified; K21.9 Gastro-esophageal reflux disease without esophagitis; M50.90 Cervical disc disorder, unspecified, unspecified cervical region; H60.92 Unspecified otitis externa, left ear; Z79.899 Other long term (current) drug therapy; Z79.82 Long term (current) use of aspirin; Z91.040 Latex allergy status; Z87.891 Personal history of nicotine dependence

== ENCOUNTER → 2021-01-26 | Outpatient (CLI) | payer OTHER ==
[~2021-01-26] MED LIST changes: +ACET300T47 PO; +ASPI-161 PO; +CIPR7.5D2 AS; +CIPR750T2 PO; +FLUT1INH3 INH; +LEVO500T3 PO; +NEOM1SOL19 OTIC
--- NOTE | 2021-01-27 22:46 | REPVR ---
PROCEDURE INFORMATION: Exam: CT Temporal Bones Without Contrast. Exam date and time: 01/26/2021 11:10 AM Age: 55 years old Clinical indication: Pain; Other: Ear; Additional info: Otitis media lt ear TECHNIQUE: Imaging protocol: Computed tomography images of the temporal bones without contrast. Radiation optimization: All CT scans at this facility use at least one of these dose optimization techniques: automated exposure control; mA and/or kV adjustment per patient size (includes targeted exams where dose is matched to clinical indication); or iterative reconstruction. COMPARISON: CT Maxilofacial w/out contrast 12/28/2020 8:07 PM FINDINGS: There is minimal partial opacification of the right mastoid air cells. No mastoid air cell erosive change or coalescence. Right middle ear cavity is clear and right ossicular chain is intact. Right osseous internal auditory canal is unremarkable. Inner ear structures are unremarkable on the right. There is partial opacification of the left mastoid air cells. No erosive change or coalescence. Left middle ear cavity is clear and left ossicular chain is intact. Left osseous internal auditory canal is unremarkable. Inner ear structures are unremarkable on the left. No definite acute abnormality involving the regional soft tissues. There is ubri-[id number] paranasal sinus disease. IMPRESSION: 1. Partial opacification of the left mastoid air cells, effusion versus mastoiditis. 2. Minimal partial opacification of the right mastoid air cells, probable minimal effusion. Electronically signed by: Widl Tierney On 01/27/2021 22:46:20 PM
== END ==
LOC: M PLAIMG 10:49
PROVIDERS: ATTEND Otolaryngology
DX: H65.492 Other chronic nonsuppurative otitis media, left ear (principal)

== ENCOUNTER → 2021-02-28 | Outpatient (CLI) | payer OTHER ==
[~2021-02-28] MED LIST changes: +CEFD1CAP8 PO
== END ==
LOC: M LABSMTC 09:11
PROVIDERS: ATTEND Anesthesiology
DX: Z01.812 Encounter for preprocedural laboratory examination (principal); Z20.822 Contact with and (suspected) exposure to COVID-19

== ENCOUNTER 2021-03-01 11:33 | Day surgery (SDC) | payer OTHER ==
[~2021-03-01] VITALS: Ht 167.6 cm; Wt 90.7 kg
[~2021-03-01 11:33] MED LIST changes: +ALBUTEROL SULFATE 2.5 MG/0.5 ML INH NEB SOLN INH ONE; +LR 1,000 ML IV ONE; +dexameTHASONE 4 MG/ML 1ML VIAL (J1100 PER 1MG) IV ONE
[2021-03-01] MEDS ORDERED: MIDAZOLAM INJ 2MG/2ML VIAL (J2250 PER 1MG) As Ordered ONE (13:08)
[2021-03-01] MEDS ORDERED: fentaNYL 100 MCG/2 ML INJECTION (J3010) As Ordered ONE (13:09)
[2021-03-01] MEDS ORDERED: propofoL 200 MG/20 ML VIAL As Ordered ONE (13:10)
[2021-03-01] MEDS ORDERED: LIDOCAINE 2% 100MG/5ML SDV (FOR ANES.) As Ordered ONE (13:10)
[2021-03-01] MEDS: PHENYLEPHRINE 0.5% NASAL SPRAY 15 ML As Ordered ONE ×2 (13:20→14:02)
[2021-03-01] MEDS ORDERED: CIPRODEX OTIC SUSP 7.5ML As Ordered ONE (13:20)
[2021-03-01] MEDS ORDERED: dexameTHASONE 4 MG/ML 1ML VIAL (J1100 PER 1MG) As Ordered ONE (13:49)
[2021-03-01] MEDS ORDERED: ONDANSETRON 4MG/2ML VIAL As Ordered ONE (13:49)
[2021-03-01] MEDS ORDERED: KETOROLAC 30 MG/ML 1ML VIAL As Ordered ONE (14:16)
[2021-03-01] MEDS ORDERED: KETOROLAC 30 MG/ML 1ML VIAL IV PRN (14:20)
[2021-03-01] MEDS ORDERED: ONDANSETRON 4MG/2ML VIAL IV PRN (14:20)
[2021-03-01] MEDS ORDERED: fentaNYL 100 MCG/2 ML INJECTION (J3010) IV PRN (14:20)
[2021-03-01] MEDS ORDERED: LR 1,000 ML IV SCH (14:20)
[2021-03-01 15:20] VITALS: BP 160/97
--- NOTE | 2021-03-03 10:00 | RO ---
OPERATIVE NOTE DATE OF OPERATION: 03/01/2021 PREOPERATIVE DIAGNOSIS: Eustachian tube dysfunction and left otomastoiditis. POSTOPERATIVE DIAGNOSIS: eustachian tube dysfunction and left otomastoiditis. PROCEDURE: Bilateral tympanostomy. SURGEON: Navi Savage MD SHEET HEATER HELPER: ANESTHESIA: Local, sedation. CLINICAL PREAMBLE: This is a 55-year-old woman who presented to the office with increasing tenderness over the left ear. CT of temporal bone revealed evidence of left otomastoiditis. She also had fullness in the right ear. Management options including bilateral tympanostomy have been discussed. The patient understood and consented to the procedure. DESCRIPTION OF PROCEDURE: The patient was identified in preop holding and brought to the operating room in stable condition. In the supine position on the operating table, the patient received sedation followed by airway management per anesthesia team. She was prepped and draped in the usual fashion for the procedure. The patient's head was turned to the left side to expose the right ear. Ear speculum was inserted and cerumen was debrided. The right tympanic membrane was visualized and found to be intact and mildly retracted. Myringotomy incision was made over the anterior inferior quadrant of tympanic membrane. The right middle ear cleft was then suctioned clear of fluid. A 7 mm straight shank tympanostomy tube was inserted. Ciprofloxacin with dexamethasone drops were then used to instill the right ear canal. Cotton ball was used to occlude the ear canal. The same procedure was carried out to place same type of tympanostomy tube to the left ear. The left tympanic membrane was intact and somewhat sclerotic, no evidence of cholesteatoma noted. Generic Ciprodex drops were used to left ear canal as well. At the end of the procedure sponge and instrument counts were correct. No complications were noted. Estimated blood loss less than 1 mL. The patient was awakened and taken to the recovery room in stable condition.
== END 2021-03-01 15:25 | disposition home or self-care (01) ==
LOC: M SDC 11:33
PROVIDERS: ATTEND Otolaryngology
DX: H69.83 Other specified disorders of Eustachian tube, bilateral (principal)
CPT/HCPCS: 69436; J1100; J1885; J2250; J2405; J3010

== ENCOUNTER 2021-06-11 11:49 | Emergency (ER) | payer OTHER ==
[~2021-06-11] VITALS: Ht 167.6 cm; Wt 93.2 kg
[~2021-06-11 11:49] MED LIST changes: -ALBUTEROL SULFATE 2.5 MG/0.5 ML INH NEB SOLN INH ONE; -LR 1,000 ML IV ONE; -dexameTHASONE 4 MG/ML 1ML VIAL (J1100 PER 1MG) IV ONE
[2021-06-11] MEDS ORDERED: NITROGLYCERIN 0.4 MG SUBL TABLET SL STA (12:17)
[2021-06-11] MEDS ORDERED: ASPIRIN 81 MG CHEW TABLET PO ONE (12:20)
[2021-06-11 12:25] VITALS: BP 136/75
[2021-06-11 12:32] LABS: BASO # 0.1 10^3/uL (0.0-0.2); BASO % 1.4 % (0.0-1.0); EOS # 0.1 10^3/uL (0.0-0.5); EOS % 1.6 % (0.0-3.0); HEMATOCRIT 44.4 % (36.0-47.0); HEMOGLOBIN 14.7 g/dl (12.0-15.5); LYMPH # 1.4 10^3/uL (1.5-5.0); LYMPH % 28.8 % (24.0-44.0); MEAN CORPUSCULAR HEMOGLOBIN 30.4 pg (27.0-33.0); MEAN CORPUSCULAR HGB CONC 33.1 g/dl (32.0-36.5); MEAN CORPUSCULAR VOLUME 91.7 fl (80.0-96.0); MONO # 0.3 10^3/uL (0.0-0.8); MONO % 6.2 % (2.0-8.0); NEUTROPHILS # 3.1 10^3/uL (1.5-8.5); NEUTROPHILS % 61.2 % (36.0-66.0); PLATELET COUNT, AUTOMATED 159 10^3/uL (150-450); RED BLOOD COUNT 4.84 10^6/uL (4.00-5.40)
[2021-06-11] MEDS ORDERED: ACETAMINOPHEN TAB 650MG DOSE (2X325MG) PO ONE (12:40)
--- NOTE | 2021-06-11 12:58 | REP ---
INDICATION: CHEST PAIN. COMPARISON: 02/02/2020 TECHNIQUE: Portable FINDINGS: The technique utilized in obtaining the radiograph has magnified the cardiac silhouette and accentuated the interstitial markings. The superior mediastinal structures are midline. The cardiac silhouette is unremarkable in size, shape, and position. The diaphragmatic surfaces of the lungs are regular, and the costophrenic angles are clear. The pulmonary butts are clear. The imaged osseous structures are intact. IMPRESSION: There is no acute cardiopulmonary disease. <Electronically signed by Pedrito Alexander > 06/11/21 [id number]
[2021-06-11 13:05] LABS: CK-MB VALUE MASS 1.4 NG/ML (<3.6); MB/CK RELATIVE INDEX 0.95 (< OR =4)
[2021-06-11 13:07] LABS: ALBUMIN 3.7 GM/DL (3.2-5.2); ALT/SGPT 54 U/L (12-78); BILIRUBIN,DIRECT 0.1 MG/DL (0.0-0.2); BILIRUBIN,TOTAL 0.9 MG/DL (0.2-1.0); BLOOD UREA NITROGEN 13 MG/DL (7-18); CALCIUM LEVEL 8.9 MG/DL (8.5-10.1); CARBON DIOXIDE LEVEL 25 MEQ/L (21-32); CHLORIDE LEVEL 108 MEQ/L (98-107); CREATININE FOR GFR 0.92 MG/DL (0.55-1.30); FREE T4 1.08 NG/DL (0.76-1.46); GLOMERULAR FILTRATION RATE > 60.0 (>51); GLUCOSE, FASTING 107 MG/DL (70-100); LIPASE 134 U/L (73-393); NT-PRO BNP 20 PG/ML (<125); POTASSIUM SERUM 4.2 MEQ/L (3.5-5.1); SODIUM LEVEL 140 MEQ/L (136-145); TOTAL PROTEIN 7.1 GM/DL (6.4-8.2)
[2021-06-11 14:24] LABS: CK-MB VALUE MASS 1.3 NG/ML (<3.6); MB/CK RELATIVE INDEX 0.9 (< OR =4)
[2021-06-11 14:46] VITALS: BP 144/62
--- NOTE | 2021-06-11 18:33 | ECGEPIP ---
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
--- NOTE | 2021-06-11 18:39 | ECGEPIP ---
[facility] - ED Test Date: 2021-06-11 Pat Name: TODD GARCIA Department: Room: - Gender: Female Behavioral Psychologist: NENA : 1965 Requested By: NORAH DOWNS Order Number: [id number] Reading MD: Raven Awad Measurements Intervals [place] Rate: 61 P: 16 [place]: 190 QRS: 50 QRSD: 90 T: 62 QT: 420 QTc: 422 Interpretive Statements Normal sinus rhythm T wave abnormality, consider ischemia decreased rate 06/11/21 Electronically Signed on 06-11-2021 18:39:09 EST by Raven Awad
== END 2021-06-11 15:28 | disposition home or self-care (01) ==
LOC: M ED 11:49
DX: R07.9 Chest pain, unspecified (principal); R42 Dizziness and giddiness; K21.9 Gastro-esophageal reflux disease without esophagitis; J45.909 Unspecified asthma, uncomplicated; J30.2 Other seasonal allergic rhinitis; Z91.040 Latex allergy status; Z79.51 Long term (current) use of inhaled steroids; Z79.899 Other long term (current) drug therapy

== ENCOUNTER → 2021-07-14 | Outpatient (CLI) | payer OTHER ==
[~2021-07-14] MED LIST changes: -CEFD1CAP8 PO; +CEFD300C41 PO; -LEVO500T3 PO; +LEVO500T4 PO; -OMEP-221; +OMEP40CA5
== END ==
LOC: M LABSMTC 12:35
PROVIDERS: ATTEND Anesthesiology
DX: Z01.812 Encounter for preprocedural laboratory examination (principal); Z20.822 Contact with and (suspected) exposure to COVID-19

== ENCOUNTER 2021-07-19 09:34 | Day surgery (SDC) | payer OTHER ==
[~2021-07-19] VITALS: Ht 167.6 cm; Wt 91.6 kg
[~2021-07-19 09:34] MED LIST changes: +CIPRODEX OTIC SUSP 7.5ML As Ordered ONE; +LIDOCAINE 1% MDV 20ML VIAL SQ PRN; +LR 1,000 ML IV ONE
[2021-07-19] MEDS ORDERED: LIDOCAINE 2% 100MG/5ML SDV (FOR ANES.) As Ordered ONE (11:14)
[2021-07-19] MEDS ORDERED: MIDAZOLAM INJ 2MG/2ML VIAL (J2250 PER 1MG) As Ordered ONE (11:14)
[2021-07-19] MEDS ORDERED: fentaNYL 100 MCG/2 ML INJECTION As Ordered ONE (11:14)
[2021-07-19] MEDS ORDERED: dexameTHASONE 4 MG/ML 1ML VIAL (J1100 PER 1MG) As Ordered ONE (11:14)
[2021-07-19] MEDS ORDERED: propofoL 200 MG/20 ML VIAL As Ordered ONE (11:14)
[2021-07-19] MEDS ORDERED: ONDANSETRON 4MG/2ML VIAL As Ordered ONE (11:14)
[2021-07-19] MEDS ORDERED: PERCOCET 5MG/325MG TAB PO PRN (11:55)
[2021-07-19] MEDS ORDERED: LR 1,000 ML IV SCH (11:55)
[2021-07-19] MEDS ORDERED: ONDANSETRON 4MG/2ML VIAL IV PRN (11:55)
[2021-07-19] MEDS ORDERED: ALBUTEROL SULFATE 2.5 MG/0.5 ML INH NEB SOLN INH ONE (12:00)
[2021-07-19] MEDS ORDERED: ACETAMINOPHEN TAB 650MG DOSE (2X325MG) PO ONE (12:05)
[2021-07-19 12:50] VITALS: BP 134/71
== END 2021-07-19 12:58 | disposition home or self-care (01) ==
LOC: M SDC 09:34
PROVIDERS: ATTEND Otolaryngology
DX: H69.92 Unspecified Eustachian tube disorder, left ear (principal); I10 Essential (primary) hypertension; R07.9 Chest pain, unspecified; E78.00 Pure hypercholesterolemia, unspecified; K44.9 Diaphragmatic hernia without obstruction or gangrene; K21.9 Gastro-esophageal reflux disease without esophagitis; M19.90 Unspecified osteoarthritis, unspecified site; L30.9 Dermatitis, unspecified; L70.9 Acne, unspecified; J45.909 Unspecified asthma, uncomplicated; J43.9 Emphysema, unspecified; R06.83 Snoring; Z91.040 Latex allergy status; Z91.018 Allergy to other foods; Z79.899 Other long term (current) drug therapy; Z79.51 Long term (current) use of inhaled steroids
CPT/HCPCS: 69436; J1100; J2250; J2405; J3010

== ENCOUNTER → 2021-10-30 | Outpatient (CLI) | payer OTHER ==
[~2021-10-30] MED LIST changes: -CIPRODEX OTIC SUSP 7.5ML As Ordered ONE; -LIDOCAINE 1% MDV 20ML VIAL SQ PRN; -LR 1,000 ML IV ONE
== END ==
LOC: M RAD 09:12
PROVIDERS: ATTEND Physician Assistant
DX: Z12.2 Encounter for screening for malignant neoplasm of respiratory organs (principal); Z87.891 Personal history of nicotine dependence; I70.0 Atherosclerosis of aorta; I25.10 Atherosclerotic heart disease of native coronary artery without angina pectoris

== ENCOUNTER 2021-11-19 15:22 | Emergency (ER) | payer OTHER ==
[~2021-11-19] VITALS: Ht 167.6 cm; Wt 94.7 kg
[~2021-11-19 15:22] MED LIST changes: +ALBU2.5V10 INH; -ALBU83IN INH
[2021-11-19 16:58] VITALS: BP 132/74
== END 2021-11-19 17:50 | disposition home or self-care (01) ==
LOC: M ED 15:22
DX: M71.21 Synovial cyst of popliteal space [Baker], right knee (principal); I10 Essential (primary) hypertension; E78.5 Hyperlipidemia, unspecified; J44.9 Chronic obstructive pulmonary disease, unspecified; K21.9 Gastro-esophageal reflux disease without esophagitis; F03.90 Unspecified dementia, unspecified severity, without behavioral disturbance, psychotic disturbance, mood disturbance, and anxiety; M54.9 Dorsalgia, unspecified; J30.2 Other seasonal allergic rhinitis; Z87.891 Personal history of nicotine dependence; Z79.899 Other long term (current) drug therapy; Z91.040 Latex allergy status; Z91.010 Allergy to peanuts

== ENCOUNTER → 2022-04-16 | Outpatient (CLI) | payer OTHER ==
[~2022-04-16] MED LIST changes: +FAMO20TA5 PO; +LEVO1TAB39 PO; -LEVO500T4 PO; +LOPI600T PO; +OMEG10002 PO; +SERT50TA29 PO
== END ==
LOC: M WHC 13:59
PROVIDERS: ATTEND Student in an Organized Health Care Education/Training Program
DX: Z12.31 Encounter for screening mammogram for malignant neoplasm of breast (principal)

== ENCOUNTER → 2022-04-18 | Outpatient (CLI) | payer OTHER | LOC: M LABSMTC 10:17 | PROVIDERS: ATTEND Anesthesiology | DX: Z01.812 Encounter for preprocedural laboratory examination (principal); Z11.52 Encounter for screening for COVID-19 ==

== ENCOUNTER 2022-04-23 09:44 | Day surgery (SDC) | payer OTHER ==
[~2022-04-23] VITALS: Ht 167.6 cm; Wt 93.0 kg
[~2022-04-23 09:44] MED LIST changes: +NS 1,000 ML IV ONE
[2022-04-23] MEDS ORDERED: LIDOCAINE 2% 100MG/5ML SDV (FOR ANES.) As Ordered ONE (11:02)
[2022-04-23] MEDS ORDERED: propofoL 200 MG/20 ML VIAL As Ordered ONE (11:02)
[2022-04-23] MEDS ORDERED: ONDANSETRON 4MG 2ML VIAL As Ordered ONE (11:03)
[2022-04-23 11:58] VITALS: BP 117/72
== END 2022-04-23 12:00 | disposition home or self-care (01) ==
LOC: M OPP 09:44
PROVIDERS: ATTEND Internal Medicine Gastroenterology
DX: Z12.11 Encounter for screening for malignant neoplasm of colon (principal); Z86.010 Personal history of colon polyps; K63.5 Polyp of colon; K57.30 Diverticulosis of large intestine without perforation or abscess without bleeding; K64.8 Other hemorrhoids; R12 Heartburn; Z79.51 Long term (current) use of inhaled steroids; Z79.899 Other long term (current) drug therapy; Z88.8 Allergy status to other drugs, medicaments and biological substances; Z91.018 Allergy to other foods; Z91.040 Latex allergy status; I10 Essential (primary) hypertension; E78.00 Pure hypercholesterolemia, unspecified; J45.909 Unspecified asthma, uncomplicated; Z87.891 Personal history of nicotine dependence; Z80.52 Family history of malignant neoplasm of bladder
CPT/HCPCS: 43235; 45385; 88305; J2405

== ENCOUNTER 2022-05-13 15:18 | Emergency (ER) | payer OTHER ==
[~2022-05-13] VITALS: Ht 167.6 cm; Wt 90.9 kg
[~2022-05-13 15:18] MED LIST changes: -NS 1,000 ML IV ONE
[2022-05-13] MEDS ORDERED: PANT20TA6 PO (15:37)
[2022-05-13] MEDS ORDERED: LOPI600T (15:37)
[2022-05-13 16:07] LABS: BASO # 0.1 10^3/uL (0.0-0.2); BASO % 0.8 % (0.0-1.0); EOS # 0.1 10^3/uL (0.0-0.5); EOS % 1.9 % (0.0-3.0); HEMATOCRIT 42.6 % (36.0-47.0); HEMOGLOBIN 14.2 g/dl (12.0-15.5); LYMPH # 1.8 10^3/uL (1.5-5.0); LYMPH % 28.1 % (24.0-44.0); MEAN CORPUSCULAR HEMOGLOBIN 30.7 pg (27.0-33.0); MEAN CORPUSCULAR HGB CONC 33.3 g/dl (32.0-36.5); MONO # 0.3 10^3/uL (0.0-0.8); NEUTROPHILS % 63.6 % (36.0-66.0); PLATELET COUNT, AUTOMATED 207 10^3/uL (150-450); RED BLOOD COUNT 4.63 10^6/uL (4.00-5.40); WHITE BLOOD COUNT 6.3 10^3/uL (4.0-10.0)
[2022-05-13] MEDS ORDERED: ASPIRIN 81MG CHEW TABLET PO ONE (16:10)
[2022-05-13] MEDS ORDERED: GI COCKTAIL 50ML BTL(HYOSCYAMINE/MAALOX/LIDOCAINE VISCOUS)(1:3:1) PO ONE (16:10)
[2022-05-13 16:21] LABS: INR 0.93; PROTHROMBIN TIME 12.7 SECONDS (12.5-14.5)
[2022-05-13 16:22] LABS: PARTIAL THROMBOPLASTIN TIME 32.4 SECONDS (24.8-34.2)
[2022-05-13 16:42] LABS: LIPASE 38 U/L (12-53)
[2022-05-13 16:43] LABS: CPK CREATINE PHOSPHOKINASE 170 U/L (34-145)
[2022-05-13 16:44] LABS: ALKALINE PHOSPHATASE 63 U/L (46-116); ALT/SGPT 43 U/L (7.0-40); AST/SGOT 27 U/L (<34); BILIRUBIN,DIRECT 0.2 MG/DL (<0.4); BILIRUBIN,TOTAL 0.6 MG/DL (0.3-1.2); BLOOD UREA NITROGEN 18 MG/DL (9-23); CALCIUM LEVEL 8.8 MG/DL (8.5-10.1); CARBON DIOXIDE LEVEL 24 MMOL/L (20-31); CHLORIDE LEVEL 105 MMOL/L (98-107); CK-MB VALUE MASS 1.4 NG/ML (<3.6); CREATININE FOR GFR 0.68 MG/DL (0.55-1.30); GLOMERULAR FILTRATION RATE > 60.0 (>51); GLUCOSE, FASTING 96 MG/DL (60-100); MB/CK RELATIVE INDEX 0.82 (< OR =4); POTASSIUM SERUM 3.9 MMOL/L (3.5-5.1); SODIUM LEVEL 138 MMOL/L (136-145); TOTAL PROTEIN 7.1 G/DL (5.7-8.2)
[2022-05-13 16:46] LABS: FREE T4 1.18 NG/DL (0.89-1.76); THYROID STIMULATING HORMONE 1.526 uIU/ML (0.55-4.78)
[2022-05-13 17:52] LABS: CK-MB VALUE MASS 1.9 NG/ML (<3.6)
[2022-05-13 17:55] LABS: MB/CK RELATIVE INDEX 1.2 (< OR =4)
[2022-05-13 18:31] VITALS: BP 131/58
== END 2022-05-13 18:38 | disposition home or self-care (01) ==
LOC: M ED 15:18
DX: R07.89 Other chest pain (principal); I51.9 Heart disease, unspecified; I10 Essential (primary) hypertension; K21.9 Gastro-esophageal reflux disease without esophagitis; F17.200 Nicotine dependence, unspecified, uncomplicated; J30.2 Other seasonal allergic rhinitis; Z82.49 Family history of ischemic heart disease and other diseases of the circulatory system; Z88.8 Allergy status to other drugs, medicaments and biological substances; Z79.899 Other long term (current) drug therapy; Z91.010 Allergy to peanuts; Z91.040 Latex allergy status

== ENCOUNTER → 2022-07-03 | Outpatient (CLI) | payer OTHER ==
[~2022-07-03] MED LIST changes: +LOPI600T; +PANT20TA6 PO
[2022-07-03 14:08] LABS: BILIRUBIN,DIRECT 0.2 MG/DL (<0.4)
[2022-07-03 14:09] LABS: BILIRUBIN,TOTAL 0.8 MG/DL (0.3-1.2); CHOLESTEROL RISK RATIO 8.35 (<5); HDL CHOLESTEROL 29.1 MG/DL (>40); LDL CHOLESTEROL 137.1 MG/DL (<100); TOTAL PROTEIN 7.2 G/DL (5.7-8.2)
== END ==
LOC: M PLALAB 10:34
PROVIDERS: ATTEND Student in an Organized Health Care Education/Training Program
DX: E78.2 Mixed hyperlipidemia (principal)

== ENCOUNTER → 2022-08-05 | Outpatient (CLI) | payer OTHER | LOC: M SLEEP HO 10:53 | PROVIDERS: ATTEND Physician Assistant | DX: G47.33 Obstructive sleep apnea (adult) (pediatric) (principal) ==

== ENCOUNTER → 2022-09-23 | Outpatient (CLI) | payer OTHER ==
[~2022-09-23] MED LIST changes: +ABIL1TAB13 PO; +FLUT50SP17; -FLUTISP; -LOPI600T
[2022-09-23 11:09] LABS: ALKALINE PHOSPHATASE 57 U/L (46-116); ALT/SGPT 35 U/L (7.0-40); AST/SGOT < 8 U/L (<34); BLOOD UREA NITROGEN 16 MG/DL (9-23); CALCIUM LEVEL 8.9 MG/DL (8.5-10.1); CARBON DIOXIDE LEVEL 27 MMOL/L (20-31); CHLORIDE LEVEL 109 MMOL/L (98-107); CHOLESTEROL LEVEL 213 MG/DL (<200); CHOLESTEROL RISK RATIO 7.88 (<5); CREATININE FOR GFR 0.79 MG/DL (0.55-1.30); GLOMERULAR FILTRATION RATE > 60.0 (>51); GLUCOSE, FASTING 99 MG/DL (60-100); POTASSIUM SERUM 4.1 MMOL/L (3.5-5.1); SODIUM LEVEL 142 MMOL/L (136-145); TOTAL PROTEIN 6.9 G/DL (5.7-8.2); TRIGLYCERIDES LEVEL 335 MG/DL (<150)
== END ==
LOC: M PLALAB 08:52
PROVIDERS: ATTEND Student in an Organized Health Care Education/Training Program
DX: E78.2 Mixed hyperlipidemia (principal)

== ENCOUNTER 2022-09-26 12:27 | Day surgery (SDC) | payer OTHER ==
[~2022-09-26] VITALS: Ht 167.6 cm; Wt 100.2 kg
[~2022-09-26 12:27] MED LIST changes: +NS 1,000 ML IV ONE
[2022-09-26] MEDS ORDERED: fentaNYL 100 MCG/2 ML INJECTION As Ordered ONE (14:22)
[2022-09-26] MEDS ORDERED: LIDOCAINE 2% 100MG/5ML SDV (FOR ANES.) As Ordered ONE (14:22)
[2022-09-26] MEDS ORDERED: propofoL 200 MG/20 ML VIAL As Ordered ONE (14:22)
[2022-09-26 14:50] VITALS: BP 155/81
== END 2022-09-26 15:15 | disposition home or self-care (01) ==
LOC: M OPP 12:27
PROVIDERS: ATTEND Internal Medicine Gastroenterology
DX: K20.90 Esophagitis, unspecified without bleeding (principal); K29.70 Gastritis, unspecified, without bleeding; I10 Essential (primary) hypertension; E78.00 Pure hypercholesterolemia, unspecified; F43.10 Post-traumatic stress disorder, unspecified; J44.9 Chronic obstructive pulmonary disease, unspecified; G47.33 Obstructive sleep apnea (adult) (pediatric); Z99.89 Dependence on other enabling machines and devices; F17.200 Nicotine dependence, unspecified, uncomplicated; Z80.52 Family history of malignant neoplasm of bladder; Z79.51 Long term (current) use of inhaled steroids; Z79.899 Other long term (current) drug therapy; Z88.8 Allergy status to other drugs, medicaments and biological substances; Z91.018 Allergy to other foods; Z91.040 Latex allergy status
CPT/HCPCS: 43239; 88305; 91035; J3010

== ENCOUNTER → 2022-10-11 | Outpatient (CLI) | payer OTHER ==
[~2022-10-11] MED LIST changes: -NS 1,000 ML IV ONE
== END ==
LOC: M RAD 09:52
PROVIDERS: ATTEND Physician Assistant Medical
DX: K22.89 Other specified disease of esophagus (principal); Z98.890 Other specified postprocedural states

== ENCOUNTER 2022-11-07 17:24 | Emergency (ER) | payer OTHER ==
[~2022-11-07] VITALS: Ht 167.6 cm; Wt 98.3 kg
[2022-11-07 19:11] LABS: BASO # 0.1 10^3/uL (0.0-0.2); BASO % 0.9 % (0.0-1.0); EOS # 0.1 10^3/uL (0.0-0.5); EOS % 1.9 % (0.0-3.0); HEMATOCRIT 48.4 % (36.0-47.0); HEMOGLOBIN 16.2 g/dl (12.0-15.5); LYMPH # 1.9 10^3/uL (1.5-5.0); LYMPH % 29.6 % (24.0-44.0); MEAN CORPUSCULAR HEMOGLOBIN 31.2 pg (27.0-33.0); MEAN CORPUSCULAR HGB CONC 33.5 g/dl (32.0-36.5); MEAN CORPUSCULAR VOLUME 93.1 fl (80.0-96.0); MONO # 0.4 10^3/uL (0.0-0.8); MONO % 6.3 % (2.0-8.0); NEUTROPHILS # 3.8 10^3/uL (1.5-8.5); PLATELET COUNT, AUTOMATED 170 10^3/uL (150-450); WHITE BLOOD COUNT 6.4 10^3/uL (4.0-10.0)
[2022-11-07 19:21] LABS: INR 0.91; PROTHROMBIN TIME 12.5 SECONDS (12.5-14.5)
[2022-11-07 19:34] LABS: CK-MB VALUE MASS < 1.0 NG/ML (<3.6); LIPASE 29 U/L (12-53)
[2022-11-07 19:36] LABS: ALBUMIN 4.2 G/DL (3.2-5.2); ALKALINE PHOSPHATASE 85 U/L (46-116); ALT/SGPT 59 U/L (7.0-40); AST/SGOT 35 U/L (<34); BILIRUBIN,DIRECT 0.3 MG/DL (<0.4); BILIRUBIN,TOTAL 0.8 MG/DL (0.3-1.2); BLOOD UREA NITROGEN 21 MG/DL (9-23); CALCIUM LEVEL 8.4 MG/DL (8.5-10.1); CARBON DIOXIDE LEVEL 22 MMOL/L (20-31); CHLORIDE LEVEL 113 MMOL/L (98-107); CPK CREATINE PHOSPHOKINASE 116 U/L (34-145); CREATININE FOR GFR 0.99 MG/DL (0.55-1.30); GLOMERULAR FILTRATION RATE > 60.0 (>51); GLUCOSE, FASTING 111 MG/DL (60-100); MB/CK RELATIVE INDEX 0.86 (< OR =4); POTASSIUM SERUM 4.2 MMOL/L (3.5-5.1); SODIUM LEVEL 143 MMOL/L (136-145)
[2022-11-07 19:49] LABS: RSV AMPLIFICATION NEGATIVE (NEGATIVE)
[2022-11-07] MEDS ORDERED: ONDANSETRON 4MG 2ML VIAL IV ONE (19:50)
[2022-11-07] MEDS ORDERED: NS 1,000 ML IV ONE (19:50)
[2022-11-07] MEDS ORDERED: methylPREDNISolone 125MG 2ML VIAL IV ONE (19:50)
[2022-11-07] MEDS ORDERED: ISOVUE-370 76% 100ML VIAL As Ordered ONE (19:54)
[2022-11-07] MEDS ORDERED: IPRATROPIUM 0.5MG/ALBUTEROL 2.5MG INH SOL UD 3ML (DUONEB) NEB ONE (19:55)
[2022-11-07] MEDS ORDERED: metroNIDAZOLE (FLAGYL) 500MG TABLET PO ONE (21:40)
[2022-11-07] MEDS ORDERED: CIPROFLOXACIN 500MG TABLET PO ONE (21:40)
[2022-11-07] MEDS ORDERED: ONDA4TAB6 PO (21:42)
[2022-11-07] MEDS ORDERED: METR-265 PO (21:42)
[2022-11-07] MEDS ORDERED: PRED20TA PO (21:42)
[2022-11-07] MEDS ORDERED: CIPR-249 PO (21:42)
[2022-11-07 21:46] VITALS: BP 125/70
== END 2022-11-07 21:56 | disposition home or self-care (01) ==
LOC: M ED 17:24
DX: J45.902 Unspecified asthma with status asthmaticus (principal); K57.32 Diverticulitis of large intestine without perforation or abscess without bleeding; Z79.899 Other long term (current) drug therapy; Z88.8 Allergy status to other drugs, medicaments and biological substances; Z91.010 Allergy to peanuts; Z91.040 Latex allergy status
CPT/HCPCS: 71046; 71275; 74177; 80048; 80076; 82550; 82553; 83690; 83880; 85025; 85610; 87631; 93005; 94640; 96361; 96374; 96375; 99284; J2405; J2930; Q9967

== ENCOUNTER 2022-12-03 13:46 | Inpatient (IN) | payer OTHER ==
[~2022-12-03] VITALS: Ht 167.6 cm; Wt 96.1 kg
[~2022-12-03 13:46] MED LIST changes: +CIPR-249 PO; +METR-265 PO; +ONDA4TAB6 PO
[2022-12-03] MEDS ORDERED: methylPREDNISolone 125MG 2ML VIAL IV ONE (14:25)
[2022-12-03] MEDS: IPRATROPIUM 0.5MG/ALBUTEROL 2.5MG INH SOL UD 3ML (DUONEB) NEB SCH ×3 (14:43→15:40)
[2022-12-03 14:56] LABS: BASO % 0.7 % (0.0-1.0); EOS # 0.1 10^3/uL (0.0-0.5); EOS % 2.3 % (0.0-3.0); HEMATOCRIT 43.4 % (36.0-47.0); HEMOGLOBIN 14.7 g/dl (12.0-15.5); LYMPH # 1.9 10^3/uL (1.5-5.0); LYMPH % 43.2 % (24.0-44.0); MEAN CORPUSCULAR HEMOGLOBIN 30.2 pg (27.0-33.0); MEAN CORPUSCULAR HGB CONC 33.9 g/dl (32.0-36.5); MEAN CORPUSCULAR VOLUME 89.3 fl (80.0-96.0); MONO # 0.2 10^3/uL (0.0-0.8); MONO % 3.5 % (2.0-8.0); NEUTROPHILS # 2.1 10^3/uL (1.5-8.5); NEUTROPHILS % 49.6 % (36.0-66.0); PLATELET COUNT, AUTOMATED 179 10^3/uL (150-450); RED BLOOD COUNT 4.86 10^6/uL (4.00-5.40); WHITE BLOOD COUNT 4.3 10^3/uL (4.0-10.0)
[2022-12-03 15:20] LABS: ALBUMIN 3.9 G/DL (3.2-5.2); ALKALINE PHOSPHATASE 70 U/L (46-116); ALT/SGPT 27 U/L (7.0-40); AST/SGOT 18 U/L (<34); BILIRUBIN,DIRECT 0.3 MG/DL (<0.4); BILIRUBIN,TOTAL 1.3 MG/DL (0.3-1.2); BLOOD UREA NITROGEN 13 MG/DL (9-23); CALCIUM LEVEL 9.6 MG/DL (8.5-10.1); CARBON DIOXIDE LEVEL 23 MMOL/L (20-31); CHLORIDE LEVEL 112 MMOL/L (98-107); CREATININE FOR GFR 0.78 MG/DL (0.55-1.30); GLOMERULAR FILTRATION RATE > 60.0 (>51); GLUCOSE, FASTING 97 MG/DL (60-100); POTASSIUM SERUM 4.2 MMOL/L (3.5-5.1); SODIUM LEVEL 141 MMOL/L (136-145); TOTAL PROTEIN 6.7 G/DL (5.7-8.2)
[2022-12-03] MEDS ORDERED: ISOVUE-370 76% 100ML VIAL As Ordered ONE (17:22)
[2022-12-03] MEDS ORDERED: MED REC IN PROGRESS XX SCH (17:55)
[2022-12-03] MEDS ORDERED: SUCR1TA PO (18:49)
[2022-12-03] MEDS ORDERED: HOME MED LIST COMPLETE! XX SCH (18:50)
[2022-12-03] MEDS ORDERED: FUROSEMIDE 40MG/4ML VIAL IV ONE (19:45)
[2022-12-03] MEDS: PANTOPRAZOLE 40MG TAB (PROTONIX) PO SCH (19:55)
[2022-12-03] MEDS: DOXYCYCLINE HYCLATE 100 MG in D5W MINI-BAG PLUS 100 ML IV SCH (19:56)
[2022-12-03] MEDS: ALBUTEROL SULFATE 2.5MG/0.5ML INH NEB SOLN NEB SCH (20:33)
[2022-12-03] MEDS: SYMBICORT 160/4.5MCG INHALER 6GM INH SCH (20:33)
[2022-12-03] MEDS ORDERED: ENOXAPARIN 40MG/0.4ML SYRINGE (J1650 PER 10MG) SC SCH (21:00)
[2022-12-03 21:05] VITALS: BP 120/65; TEMP 97.7; O2SAT 93
[2022-12-03] MEDS: methylPREDNISolone 40MG 1ML VIAL IV SCH (21:42)
[2022-12-03] MEDS: DOCUSATE SODIUM 100MG CAPSULE PO SCH (21:42)
[2022-12-04] MEDS: ALBUTEROL SULFATE 2.5MG/0.5ML INH NEB SOLN NEB SCH ×4 (00:15→11:55)
[2022-12-04] MEDS: methylPREDNISolone 40MG 1ML VIAL IV SCH (05:08)
[2022-12-04 06:00] VITALS: BP 117/65; TEMP 97.9; O2SAT 93
[2022-12-04 06:27] LABS: BASO % 0.2 % (0.0-1.0); HEMATOCRIT 41.7 % (36.0-47.0); LYMPH # 0.9 10^3/uL (1.5-5.0); LYMPH % 14.6 % (24.0-44.0); MEAN CORPUSCULAR HGB CONC 33.6 g/dl (32.0-36.5); MEAN CORPUSCULAR VOLUME 89.5 fl (80.0-96.0); MONO # 0.1 10^3/uL (0.0-0.8); MONO % 1.2 % (2.0-8.0); NEUTROPHILS # 4.8 10^3/uL (1.5-8.5); NEUTROPHILS % 81.1 % (36.0-66.0); PLATELET COUNT, AUTOMATED 207 10^3/uL (150-450); RED BLOOD COUNT 4.66 10^6/uL (4.00-5.40); WHITE BLOOD COUNT 5.9 10^3/uL (4.0-10.0)
[2022-12-04 06:39] LABS: BLOOD UREA NITROGEN 19 MG/DL (9-23); CALCIUM LEVEL 8.9 MG/DL (8.5-10.1); CARBON DIOXIDE LEVEL 22 MMOL/L (20-31); CHLORIDE LEVEL 106 MMOL/L (98-107); CREATININE FOR GFR 0.85 MG/DL (0.55-1.30); GLOMERULAR FILTRATION RATE > 60.0 (>51); GLUCOSE, FASTING 161 MG/DL (60-100); POTASSIUM SERUM 3.9 MMOL/L (3.5-5.1); SODIUM LEVEL 141 MMOL/L (136-145)
[2022-12-04] MEDS: SYMBICORT 160/4.5MCG INHALER 6GM INH SCH (07:19)
[2022-12-04] MEDS ORDERED: TIOTROPIUM INHALER/CAPSULE (SPIRIVA) INH SCH (08:00)
[2022-12-04] MEDS: PANTOPRAZOLE 40MG TAB (PROTONIX) PO SCH (09:05)
[2022-12-04] MEDS: DOCUSATE SODIUM 100MG CAPSULE PO SCH (09:05)
[2022-12-04] MEDS: DOXYCYCLINE HYCLATE 100 MG in D5W MINI-BAG PLUS 100 ML IV SCH (09:05)
[2022-12-04 10:38] VITALS: O2SAT 94
[2022-12-04] MEDS ORDERED: DEXL60CA PO (10:41)
[2022-12-04] MEDS ORDERED: TRAZ-252 PO (10:41)
[2022-12-04] MEDS ORDERED: HOME MED LIST COMPLETE! XX SCH (10:45)
[2022-12-04] MEDS ORDERED: ALBU2.5V10 INH (12:39)
[2022-12-04] MEDS ORDERED: PRED10TA2 PO (12:39)
[2022-12-04] MEDS ORDERED: AZIT500T5 PO (12:39)
[2022-12-04] MEDS ORDERED: FUROSEMIDE 40MG/4ML VIAL IV ONE (12:40)
== END 2022-12-04 13:17 | disposition home or self-care (01) | DRG 137 ==
LOC: M ED 13:46 → M ED INP 17:26 → M MSPAV 21:05
PROVIDERS: ADMIT Internal Medicine Nephrology; ATTEND Internal Medicine Nephrology
DX: U07.1 COVID-19 (principal); J12.82 Pneumonia due to coronavirus disease 2019; J45.21 Mild intermittent asthma with (acute) exacerbation; R15.9 Full incontinence of feces; K21.9 Gastro-esophageal reflux disease without esophagitis; J44.1 Chronic obstructive pulmonary disease with (acute) exacerbation; E66.9 Obesity, unspecified; G47.33 Obstructive sleep apnea (adult) (pediatric); M54.59 Other low back pain; E78.5 Hyperlipidemia, unspecified; F43.10 Post-traumatic stress disorder, unspecified; F41.1 Generalized anxiety disorder; Z91.040 Latex allergy status; Z91.010 Allergy to peanuts; Z88.8 Allergy status to other drugs, medicaments and biological substances; Z79.899 Other long term (current) drug therapy

== ENCOUNTER → 2022-12-18 | Outpatient (CLI) | payer OTHER ==
[~2022-12-18] MED LIST changes: +AZIT500T5 PO; +DEXL60CA PO; +E-Z-GAS II EFFERVESCENT PACKET (SODIUM BICARB./CITRIC ACID/SIMETHICONE) As Ordered ONE; +E-Z-HD 98% w/w 340GM SUSP BTL As Ordered ONE; +E-Z-PAQUE 96% w/w SUSP 176GM BTL As Ordered ONE; +TRAZ-252 PO
== END ==
LOC: M RAD 09:50
PROVIDERS: ATTEND Physician Assistant Surgical
DX: K21.00 Gastro-esophageal reflux disease with esophagitis, without bleeding (principal)

== ENCOUNTER 2022-12-27 15:25 | Emergency (ER) | payer OTHER ==
[~2022-12-27] VITALS: Ht 167.6 cm; Wt 96.8 kg
[~2022-12-27 15:25] MED LIST changes: -E-Z-GAS II EFFERVESCENT PACKET (SODIUM BICARB./CITRIC ACID/SIMETHICONE) As Ordered ONE; -E-Z-HD 98% w/w 340GM SUSP BTL As Ordered ONE; -E-Z-PAQUE 96% w/w SUSP 176GM BTL As Ordered ONE
[2022-12-27 16:00] LABS: BASO % 0.8 % (0.0-1.0); EOS # 0.1 10^3/uL (0.0-0.5); EOS % 2.3 % (0.0-3.0); HEMATOCRIT 40.1 % (36.0-47.0); LYMPH # 1.8 10^3/uL (1.5-5.0); LYMPH % 33.6 % (24.0-44.0); MEAN CORPUSCULAR HEMOGLOBIN 31.3 pg (27.0-33.0); MEAN CORPUSCULAR HGB CONC 34.9 g/dl (32.0-36.5); MEAN CORPUSCULAR VOLUME 89.7 fl (80.0-96.0); MONO # 0.4 10^3/uL (0.0-0.8); MONO % 6.6 % (2.0-8.0); NEUTROPHILS % 55.9 % (36.0-66.0); PLATELET COUNT, AUTOMATED 149 10^3/uL (150-450); RED BLOOD COUNT 4.47 10^6/uL (4.00-5.40); WHITE BLOOD COUNT 5.3 10^3/uL (4.0-10.0)
[2022-12-27 16:23] LABS: CK-MB VALUE MASS 1.3 NG/ML (<3.6); LIPASE 38 U/L (12-53)
[2022-12-27 16:25] LABS: CPK CREATINE PHOSPHOKINASE 132 U/L (34-145); MB/CK RELATIVE INDEX 0.98 (< OR =4)
[2022-12-27 16:26] LABS: ALBUMIN 3.7 G/DL (3.2-5.2); ALKALINE PHOSPHATASE 66 U/L (46-116); ALT/SGPT 46 U/L (7.0-40); AST/SGOT 22 U/L (<34); BILIRUBIN,DIRECT 0.2 MG/DL (<0.4); BILIRUBIN,TOTAL 1.2 MG/DL (0.3-1.2); BLOOD UREA NITROGEN 14 MG/DL (9-23); CALCIUM LEVEL 8.7 MG/DL (8.5-10.1); CARBON DIOXIDE LEVEL 25 MMOL/L (20-31); CHLORIDE LEVEL 108 MMOL/L (98-107); CREATININE FOR GFR 0.72 MG/DL (0.55-1.30); GLOMERULAR FILTRATION RATE > 60.0 (>51); GLUCOSE, FASTING 96 MG/DL (60-100); POTASSIUM SERUM 3.8 MMOL/L (3.5-5.1); SODIUM LEVEL 143 MMOL/L (136-145); TOTAL PROTEIN 6.3 G/DL (5.7-8.2)
[2022-12-27 17:19] LABS: CK-MB VALUE MASS 1.4 NG/ML (<3.6)
[2022-12-27 17:24] LABS: MB/CK RELATIVE INDEX 1.14 (< OR =4)
[2022-12-27] MEDS ORDERED: MAALOX 30 ML SUSP *UDC PO ONE (17:40)
[2022-12-27] MEDS ORDERED: SUCRALFATE SUSP 1GM/10ML UD PO ONE (17:40)
[2022-12-27 18:45] VITALS: BP 136/75; TEMP 97.4; O2SAT 95
== END 2022-12-27 19:00 | disposition home or self-care (01) ==
LOC: M ED 15:25
DX: K21.9 Gastro-esophageal reflux disease without esophagitis (principal); I10 Essential (primary) hypertension; E78.5 Hyperlipidemia, unspecified; J44.9 Chronic obstructive pulmonary disease, unspecified; Z79.899 Other long term (current) drug therapy; J30.2 Other seasonal allergic rhinitis; Z88.8 Allergy status to other drugs, medicaments and biological substances; Z91.010 Allergy to peanuts

== ENCOUNTER → 2023-02-24 | Outpatient (CLI) | payer OTHER ==
[~2023-02-24] MED LIST changes: +LORA-1041; -LORA-674
[2023-02-24 15:23] LABS: CHOLESTEROL RISK RATIO 7.19 (<5); HDL CHOLESTEROL 28.9 MG/DL (>40); LDL CHOLESTEROL 101.7 MG/DL (<100); NON-HDL-C 179.1 MG/DL
== END ==
LOC: M PLALAB 11:08
PROVIDERS: ATTEND Student in an Organized Health Care Education/Training Program
DX: E78.1 Pure hyperglyceridemia (principal)

== ENCOUNTER → 2023-03-25 | Outpatient (CLI) | payer OTHER ==
[~2023-03-25] MED LIST changes: -CEFD300C41 PO; +CEFD300C42 PO
== END ==
LOC: M RAD 16:00
PROVIDERS: ATTEND Physician Assistant
DX: R91.8 Other nonspecific abnormal finding of lung field (principal)

== ENCOUNTER → 2023-07-30 | Outpatient (CLI) | payer OTHER ==
[~2023-07-30] MED LIST changes: -ASPI-161 PO; +ASPI-615 PO; +CEFD1CAP9 PO; -CEFD300C42 PO; -FLUT50SP17; +FLUTISP
[2023-07-30 15:39] LABS: BASO % 0.7 % (0.0-1.0); EOS # 0.1 10^3/uL (0.0-0.5); EOS % 2.8 % (0.0-3.0); HEMATOCRIT 41.4 % (36.0-47.0); HEMOGLOBIN 14.2 g/dl (12.0-15.5); LYMPH % 22.9 % (24.0-44.0); MEAN CORPUSCULAR HGB CONC 34.3 g/dl (32.0-36.5); MEAN CORPUSCULAR VOLUME 90.4 fl (80.0-96.0); MONO # 0.3 10^3/uL (0.0-0.8); MONO % 6.3 % (2.0-8.0); NEUTROPHILS # 2.9 10^3/uL (1.5-8.5); NEUTROPHILS % 66.1 % (36.0-66.0); PLATELET COUNT, AUTOMATED 149 10^3/uL (150-450); RED BLOOD COUNT 4.58 10^6/uL (4.00-5.40); WHITE BLOOD COUNT 4.3 10^3/uL (4.0-10.0)
[2023-07-30 16:08] LABS: RHEUMATOID FACTOR QUANT < 3.5 IU/ML (<14)
[2023-07-30 16:15] LABS: ERYTHROCYTE SEDIMENTATION RATE 23 mm/hr (0-30)
== END ==
LOC: M LAB 14:50
PROVIDERS: ATTEND Orthopaedic Surgery
DX: M65.331 Trigger finger, right middle finger (principal); M65.341 Trigger finger, right ring finger

== ENCOUNTER 2023-08-02 16:34 | Emergency (ER) | payer OTHER ==
[~2023-08-02] VITALS: Ht 167.6 cm; Wt 93.6 kg
[2023-08-02 16:34] VITALS: TEMP 96.6
[2023-08-02 17:52] LABS: VENOUS BASE EXCESS 0.1 (-2.0-2.0); VENOUS HCO3 24.7 MMOL/L (23.0-27.0); VENOUS O2 SATURATION 92.5 % (60.0-80.0); VENOUS PARTIAL PRESSURE CO2 39.9 mmHg (38.0-50.0); VENOUS PARTIAL PRESSURE O2 62.5 mmHg (30.0-50.0); VENOUS PH 7.409 UNITS (7.330-7.430); VENOUS STANDARD HCO3 24.5 MMOL/L; VENOUS TOTAL CO2 25.9 MMOL/L (24.0-28.0)
[2023-08-02 18:08] LABS: BASO % 0.4 % (0.0-1.0); EOS # 0.1 10^3/uL (0.0-0.5); HEMATOCRIT 41.9 % (36.0-47.0); HEMOGLOBIN 14.1 g/dl (12.0-15.5); LYMPH # 1.4 10^3/uL (1.5-5.0); LYMPH % 21.1 % (24.0-44.0); MEAN CORPUSCULAR HEMOGLOBIN 30.4 pg (27.0-33.0); MEAN CORPUSCULAR HGB CONC 33.7 g/dl (32.0-36.5); MEAN CORPUSCULAR VOLUME 90.3 fl (80.0-96.0); MONO # 0.4 10^3/uL (0.0-0.8); MONO % 6.3 % (2.0-8.0); NEUTROPHILS # 4.7 10^3/uL (1.5-8.5); NEUTROPHILS % 70.6 % (36.0-66.0); PLATELET COUNT, AUTOMATED 147 10^3/uL (150-450); RED BLOOD COUNT 4.64 10^6/uL (4.00-5.40); WHITE BLOOD COUNT 6.7 10^3/uL (4.0-10.0)
[2023-08-02 18:21] LABS: CPK CREATINE PHOSPHOKINASE 311 U/L (34-145)
[2023-08-02 18:22] LABS: ALKALINE PHOSPHATASE 61 U/L (46-116); ALT/SGPT 29 U/L (7.0-40); AST/SGOT 24 U/L (<34); BILIRUBIN,DIRECT 0.3 MG/DL (<0.4); BILIRUBIN,TOTAL 1.2 MG/DL (0.3-1.2); BLOOD UREA NITROGEN 19 MG/DL (9-23); CALCIUM LEVEL 8.8 MG/DL (8.5-10.1); CARBON DIOXIDE LEVEL 25 MMOL/L (20-31); CHLORIDE LEVEL 108 MMOL/L (98-107); CK-MB VALUE MASS 3.3 NG/ML (<3.6); CREATININE FOR GFR 0.84 MG/DL (0.55-1.30); GLOMERULAR FILTRATION RATE > 60.0 (>51); GLUCOSE, FASTING 102 MG/DL (60-100); MB/CK RELATIVE INDEX 1.06 (< OR =4); POTASSIUM SERUM 4.2 MMOL/L (3.5-5.1); SODIUM LEVEL 138 MMOL/L (136-145)
[2023-08-02 18:26] LABS: THYROID STIMULATING HORMONE 2.689 uIU/ML (0.55-4.78); THYROXINE (T4) 9.8 UG/DL (4.5-10.9)
[2023-08-02 18:30] LABS: RSV AMPLIFICATION NEGATIVE (NEGATIVE)
[2023-08-02] MEDS: methylPREDNISolone 125MG 2ML VIAL IV ONE (20:00)
[2023-08-02] MEDS: ALBUTEROL SULFATE 2.5MG/0.5ML INH NEB SOLN NEB ONE (20:01)
[2023-08-02] MEDS: IPRATROPIUM 0.5MG/ALBUTEROL 2.5MG INH SOL UD 3ML (DUONEB) NEB ONE (20:01)
[2023-08-02 21:53] LABS: MB/CK RELATIVE INDEX 1.01 (< OR =4)
[2023-08-02] MEDS: SUCRALFATE 1 GM TAB PO ONE (23:28)
[2023-08-02] MEDS: MAALOX 30 ML SUSP *UDC PO ONE (23:28)
[2023-08-02] MEDS ORDERED: PRED10TA2 PO (23:40)
[2023-08-02 23:45] VITALS: BP 126/66; O2SAT 96
== END 2023-08-03 00:09 | disposition home or self-care (01) ==
LOC: M ED 16:34
DX: J45.901 Unspecified asthma with (acute) exacerbation (principal); I10 Essential (primary) hypertension; J44.9 Chronic obstructive pulmonary disease, unspecified; E78.5 Hyperlipidemia, unspecified; K21.9 Gastro-esophageal reflux disease without esophagitis; Z91.010 Allergy to peanuts; Z91.040 Latex allergy status; M54.50 Low back pain, unspecified; Z88.8 Allergy status to other drugs, medicaments and biological substances; M51.36 Other intervertebral disc degeneration, lumbar region; Z79.51 Long term (current) use of inhaled steroids; Z79.899 Other long term (current) drug therapy
CPT/HCPCS: 71045; 80048; 80076; 82550; 82553; 82803; 83605; 83880; 84436; 84443; 85025; 87040; 87631; 93005; 93041; 94640; 94760; 96374; 99285; J2930

== ENCOUNTER 2023-08-24 13:04 | Emergency (ER) | payer OTHER ==
[~2023-08-24] VITALS: Ht 167.6 cm; Wt 96.4 kg
[2023-08-24 14:13] LABS: BASO % 0.7 % (0.0-1.0); EOS # 0.1 10^3/uL (0.0-0.5); EOS % 1.3 % (0.0-3.0); HEMATOCRIT 42.6 % (36.0-47.0); HEMOGLOBIN 14.6 g/dl (12.0-15.5); LYMPH # 1.7 10^3/uL (1.5-5.0); LYMPH % 28.2 % (24.0-44.0); MEAN CORPUSCULAR HEMOGLOBIN 30.5 pg (27.0-33.0); MEAN CORPUSCULAR HGB CONC 34.3 g/dl (32.0-36.5); MEAN CORPUSCULAR VOLUME 88.9 fl (80.0-96.0); MONO # 0.3 10^3/uL (0.0-0.8); MONO % 4.9 % (2.0-8.0); NEUTROPHILS # 3.8 10^3/uL (1.5-8.5); NEUTROPHILS % 62.6 % (36.0-66.0); PLATELET COUNT, AUTOMATED 172 10^3/uL (150-450); RED BLOOD COUNT 4.79 10^6/uL (4.00-5.40); WHITE BLOOD COUNT 6.1 10^3/uL (4.0-10.0)
[2023-08-24 14:37] LABS: ALBUMIN 3.8 G/DL (3.2-5.2); ALKALINE PHOSPHATASE 54 U/L (46-116); ALT/SGPT 29 U/L (7.0-40); AST/SGOT 20 U/L (<34); BILIRUBIN,TOTAL 1.1 MG/DL (0.3-1.2); BLOOD UREA NITROGEN 13 MG/DL (9-23); CALCIUM LEVEL 8.9 MG/DL (8.5-10.1); CARBON DIOXIDE LEVEL 25 MMOL/L (20-31); CHLORIDE LEVEL 107 MMOL/L (98-107); CREATININE FOR GFR 0.74 MG/DL (0.55-1.30); GLOMERULAR FILTRATION RATE > 60.0 (>51); GLUCOSE, FASTING 94 MG/DL (60-100); POTASSIUM SERUM 4.1 MMOL/L (3.5-5.1); SODIUM LEVEL 138 MMOL/L (136-145)
[2023-08-24 14:49] LABS: RSV AMPLIFICATION NEGATIVE (NEGATIVE)
[2023-08-24] MEDS: methylPREDNISolone 125MG 2ML VIAL IV ONE (15:08)
[2023-08-24] MEDS: IPRATROPIUM 0.5MG/ALBUTEROL 2.5MG INH SOL UD 3ML (DUONEB) NEB ONE (15:45)
[2023-08-24 17:36] VITALS: BP 130/83; TEMP 98.3; O2SAT 98
== END 2023-08-24 17:40 | disposition home or self-care (01) ==
LOC: M ED 13:04
DX: J98.01 Acute bronchospasm (principal); J45.909 Unspecified asthma, uncomplicated; J44.9 Chronic obstructive pulmonary disease, unspecified; K21.9 Gastro-esophageal reflux disease without esophagitis; Z79.899 Other long term (current) drug therapy; Z88.8 Allergy status to other drugs, medicaments and biological substances; Z91.018 Allergy to other foods; Z91.040 Latex allergy status
CPT/HCPCS: 71046; 80053; 83605; 85025; 87040; 87631; 94640; 96374; 99283; J2930

== ENCOUNTER 2023-12-21 11:13 | Emergency (ER) | payer OTHER ==
[~2023-12-21] VITALS: Ht 167.6 cm; Wt 88.0 kg
[2023-12-21 11:13] VITALS: BP 174/85; TEMP 98.1; O2SAT 97
[~2023-12-21 11:13] MED LIST changes: -DEXL60CA PO; +DEXL60CA13 PO; +ONDA-282 PO; -ONDA4TAB6 PO
[2023-12-21] MEDS ORDERED: TRAZ-252 (11:33)
[2023-12-21 12:52] LABS: BASO # 0.1 10^3/uL (0.0-0.2); BASO % 0.8 % (0.0-1.0); EOS # 0.1 10^3/uL (0.0-0.5); EOS % 1.5 % (0.0-3.0); HEMOGLOBIN 14.9 g/dl (12.0-15.5); LYMPH # 1.3 10^3/uL (1.5-5.0); LYMPH % 21.7 % (24.0-44.0); MEAN CORPUSCULAR HEMOGLOBIN 30.2 pg (27.0-33.0); MEAN CORPUSCULAR HGB CONC 33.9 g/dl (32.0-36.5); MEAN CORPUSCULAR VOLUME 89.2 fl (80.0-96.0); MONO # 0.3 10^3/uL (0.0-0.8); MONO % 5.4 % (2.0-8.0); NEUTROPHILS # 4.1 10^3/uL (1.5-8.5); NEUTROPHILS % 69.9 % (36.0-66.0); PLATELET COUNT, AUTOMATED 160 10^3/uL (150-450); RED BLOOD COUNT 4.93 10^6/uL (4.00-5.40); WHITE BLOOD COUNT 5.9 10^3/uL (4.0-10.0)
[2023-12-21 12:59] LABS: ERYTHROCYTE SEDIMENTATION RATE 50 mm/hr (0-30)
[2023-12-21] MEDS: KETOROLAC 30 MG/ML 1ML VIAL IV ONE (13:07)
[2023-12-21] MEDS: ONDANSETRON 4MG 2ML VIAL IV ONE (13:07)
[2023-12-21] MEDS ORDERED: VALT1TAB PO (14:35)
[2023-12-21] MEDS ORDERED: MELO7.5T35 PO ×2 (14:35→15:01)
[2023-12-21] MEDS ORDERED: AMOX875T2 PO (14:35)
== END 2023-12-21 14:59 | disposition home or self-care (01) ==
LOC: M ED 11:13
DX: K03.81 Cracked tooth (principal); K04.7 Periapical abscess without sinus; B00.9 Herpesviral infection, unspecified; F32.A Depression, unspecified; J44.9 Chronic obstructive pulmonary disease, unspecified; Z91.040 Latex allergy status; Z91.018 Allergy to other foods; Z88.8 Allergy status to other drugs, medicaments and biological substances; Z79.52 Long term (current) use of systemic steroids; Z79.2 Long term (current) use of antibiotics; Z79.899 Other long term (current) drug therapy
CPT/HCPCS: 70355; 80047; 83605; 85025; 85652; 86140; 87040; 96374; 99283; J1885; J2405

== ENCOUNTER 2024-04-04 12:45 | Emergency (ER) | payer OTHER ==
[~2024-04-04] VITALS: Ht 167.6 cm; Wt 86.8 kg
[~2024-04-04 12:45] MED LIST changes: +AMOX875T2 PO; +MELO7.5T35 PO; +TRAZ-252; +VALT1TAB PO
[2024-04-04 12:53] VITALS: TEMP 97.3; O2SAT 98
[2024-04-04 12:56] VITALS: BP 146/98
[2024-04-04] MEDS: LIDOCAINE 5% (LIDODERM) PATCH TD ONE (14:51)
[2024-04-04] MEDS: KETOROLAC 60MG 2ML VIAL IM ONE (14:51)
[2024-04-04] MEDS ORDERED: ASPE4PAD TOP (15:41)
[2024-04-04] MEDS ORDERED: HYDR-3713 PO (15:41)
== END 2024-04-04 15:52 | disposition home or self-care (01) ==
LOC: M ED 12:45
DX: S20.221A Contusion of right back wall of thorax, initial encounter (principal); W01.198A Fall on same level from slipping, tripping and stumbling with subsequent striking against other object, initial encounter; I10 Essential (primary) hypertension; E78.5 Hyperlipidemia, unspecified; K21.9 Gastro-esophageal reflux disease without esophagitis; F17.200 Nicotine dependence, unspecified, uncomplicated; Z91.018 Allergy to other foods; Z91.040 Latex allergy status; Z79.52 Long term (current) use of systemic steroids; Z79.2 Long term (current) use of antibiotics; Z79.899 Other long term (current) drug therapy; Y92.009 Unspecified place in unspecified non-institutional (private) residence as the place of occurrence of the external cause; Y93.89 Activity, other specified; Y99.9 Unspecified external cause status
CPT/HCPCS: 71101; 71250; 96372; 99283; J1885

== ENCOUNTER → 2024-12-21 | Outpatient (CLI) | payer OTHER ==
[~2024-12-21] MED LIST changes: +ASPE4PAD TOP; -CYCL5TAB PO; +CYCL5TAB4 PO; +HYDR-3713 PO
[2024-12-21 15:32] LABS: CALCIUM LEVEL 9.4 MG/DL (8.3-10.6); CARBON DIOXIDE LEVEL 28 MMOL/L (20-31); CHLORIDE LEVEL 109 MMOL/L (98-107); CHOLESTEROL LEVEL 215 MG/DL (<200); CHOLESTEROL RISK RATIO 8.02 (<5); CREATININE FOR GFR 0.92 MG/DL (0.55-1.30); GLOMERULAR FILTRATION RATE 71.3 (>45); NON-HDL-C 188.2 MG/DL; POTASSIUM SERUM 4.4 MMOL/L (3.5-5.1); SODIUM LEVEL 144 MMOL/L (136-145); TRIGLYCERIDES LEVEL 513 MG/DL (<150)
[2024-12-21 15:33] LABS: BASO # 0.1 10^3/uL (0.0-0.2); BASO % 0.9 % (0.0-1.0); EOS # 0.1 10^3/uL (0.0-0.5); EOS % 2.2 % (0.0-3.0); LYMPH # 1.7 10^3/uL (1.5-5.0); LYMPH % 31.0 % (24.0-44.0); MONO # 0.3 10^3/uL (0.0-0.8); MONO % 5.6 % (2.0-8.0); NEUTROPHILS # 3.2 10^3/uL (1.5-8.5); NEUTROPHILS % 59.4 % (36.0-66.0); PLATELET COUNT, AUTOMATED 153 10^3/uL (150-450)
[2024-12-21 16:15] LABS: ESTIMATED AVERAGE GLUCOSE 111.0 MG/DL (60-110)
== END ==
LOC: M PLALAB 09:27
PROVIDERS: ATTEND Student in an Organized Health Care Education/Training Program
DX: E78.2 Mixed hyperlipidemia (principal)

== ENCOUNTER → 2025-01-10 | Outpatient (CLI) | payer OTHER | LOC: M WHC 11:19 | PROVIDERS: ATTEND Family Medicine | DX: Z12.31 Encounter for screening mammogram for malignant neoplasm of breast (principal); R92.313 Mammographic fatty tissue density, bilateral breasts ==

== ENCOUNTER 2025-03-19 10:08 | Emergency (ER) | payer OTHER ==
[~2025-03-19] VITALS: Ht 167.6 cm; Wt 85.8 kg
[~2025-03-19 10:08] MED LIST changes: -IBUP-1022 PO; +IBUP600T42 PO
[2025-03-19 11:14] LABS: SP GRAVITY,URINE MANUAL REFLEX 1.026 (1.002-1.035)
[2025-03-19 11:19] LABS: KETONE, URINE MANUAL REFLEX NEGATIVE (NEGATIVE); NITRITE, URINE MANUAL RFX NEGATIVE (NEGATIVE); PROTEIN, URINE MANUAL REFLEX TRACE mg/dL (NEGATIVE); UROBILINOGEN, UA MANUAL REFLEX NORMAL (NORMAL)
[2025-03-19 11:27] LABS: BASO # 0.1 10^3/uL (0.0-0.2); BASO % 0.7 % (0.0-1.0); EOS # 0.1 10^3/uL (0.0-0.5); EOS % 1.5 % (0.0-3.0); LYMPH # 2.0 10^3/uL (1.5-5.0); LYMPH % 24.8 % (24.0-44.0); MONO # 0.4 10^3/uL (0.0-0.8); MONO % 4.8 % (2.0-8.0); NEUTROPHILS # 5.5 10^3/uL (1.5-8.5); NEUTROPHILS % 67.7 % (36.0-66.0); PLATELET COUNT, AUTOMATED 170 10^3/uL (150-450)
[2025-03-19 11:40] LABS: HYALINE CAST, URINE RFX NONE SEEN /lpf (0-1); MICROSCOPIC EXAM RFX PERFORMED; RBC, URINE MAN REFLEX 0-1 /hpf (0-3); SQUAMOUS EPITHELIAL URINE RFX LARGE AMOUNT /hpf (SMALL AMT); WBC, URINE MAN RFX 0-1 /hpf (0-3)
[2025-03-19 11:41] LABS: CALCIUM LEVEL 9.1 MG/DL (8.3-10.6); CARBON DIOXIDE LEVEL 26.0 MMOL/L (20-31); CHLORIDE LEVEL 108.0 MMOL/L (98-107); CREATININE FOR GFR 0.85 MG/DL (0.55-1.30); GLOMERULAR FILTRATION RATE 78.4 (>45); POTASSIUM SERUM 4.3 MMOL/L (3.5-5.1); SODIUM LEVEL 142.0 MMOL/L (136-145)
[2025-03-19] MEDS: ONDANSETRON 4MG 2ML VIAL IV ONE (12:37)
[2025-03-19] MEDS: NS (Normal Saline) 0.9% 1,000 ML IV ONE (12:37)
[2025-03-19] MEDS: KETOROLAC 30 MG/ML 1 ML VIAL IV ONE (12:38)
[2025-03-19 12:46] LABS: ALT/SGPT 21.0 U/L (7.0-40); AST/SGOT 19.0 U/L (<34)
[2025-03-19] MEDS ORDERED: ISOVUE-370 76% 100 ML VIAL As Ordered ONE (13:22)
[2025-03-19] MEDS ORDERED: KETO-204 PO (16:45)
[2025-03-19] MEDS ORDERED: CEFD1CAP9 PO (16:45)
[2025-03-19] MEDS ORDERED: METH-1165 PO (16:45)
[2025-03-19] MEDS: CEFDINIR 300 MG CAP PO ONE (16:51)
[2025-03-19 16:57] VITALS: BP 127/60; TEMP 97; O2SAT 96
== END 2025-03-19 16:57 | disposition home or self-care (01) ==
LOC: M ED 10:08
DX: N39.0 Urinary tract infection, site not specified (principal); M54.50 Low back pain, unspecified; K76.0 Fatty (change of) liver, not elsewhere classified; N28.1 Cyst of kidney, acquired; F32.A Depression, unspecified; F41.9 Anxiety disorder, unspecified; K21.9 Gastro-esophageal reflux disease without esophagitis; K57.30 Diverticulosis of large intestine without perforation or abscess without bleeding; J45.909 Unspecified asthma, uncomplicated; Z79.1 Long term (current) use of non-steroidal anti-inflammatories (NSAID); Z79.52 Long term (current) use of systemic steroids; Z79.2 Long term (current) use of antibiotics; Z79.899 Other long term (current) drug therapy; Z91.010 Allergy to peanuts; Z91.040 Latex allergy status; Z91.048 Other nonmedicinal substance allergy status
CPT/HCPCS: 74177; 80048; 80076; 81000; 81015; 83690; 85025; 87086; 96361; 96374; 96375; 99284; J1885; J2405; Q9967

== ENCOUNTER → 2025-04-25 | Outpatient (CLI) | payer OTHER ==
[~2025-04-25] MED LIST changes: +KETO-204 PO; +METH-1165 PO
== END ==
LOC: M RAD 15:54
PROVIDERS: ATTEND Physician Assistant
DX: Z87.891 Personal history of nicotine dependence (principal)